=== PATIENT | female | born 1950 | race Caucasian/White ===

== ENCOUNTER 2020-07-22 10:40 | Outpatient (REF) | payer MEDICARE, MEDICAID, SELFPAY ==
[2020-07-22 13:56] LABS: MANUAL DIFF FLAG NO
[2020-07-22 14:01] LABS: Basophils Absolute Auto 0.1 X10*3/uL (0.0-0.2); Basophils Percent Auto 0.4 % (0-2); Eosinophils Absolute Auto 0.2 X10*3/uL (0.0-0.4); Eosinophils Percent Auto 1.7 % (0-4); Hemoglobin 15.4 g/dl (12.0-16.0); Imm Gran Abs Auto 0.03 X10*3/uL (0.00-0.03); Imm Gran Pct Auto 0.3 % (0.0-0.4); Lymphocytes Absolute Auto 3.2 X10*3/uL (1.2-4.9); Lymphocytes Percent Auto 28.1 % (20-40); Mean Corpuscular HGB Conc 33.5 g/dl (31.0-35.0); Mean Corpuscular Hemoglobin 29.6 pg (27.0-33.0); Mean Corpuscular Volume 88.5 fL (80-98); Mean Platelet Volume 10.3 fL (9.4-12.3); Monocytes Absolute Auto 0.4 X10*3/uL (0.1-1.2); Monocytes Percent Auto 3.6 % (2-11); Neutrophils Absolute Auto 7.5 X10*3/uL (2.0-8.3); Neutrophils Percent Auto 65.9 % (45-73); Platelet Count 312 X10*3/uL (160-400); Red Cell Distribution Width 12.9 % (11.0-16.0); White Blood Count 11.4 X10*3/uL (4.8-10.8)
[2020-07-22 14:46] LABS: Alanine Aminotransferase 18 U/L (0-31); Albumin Level 4.2 g/dL (3.5-5.0); Alkaline Phosphatase 82 U/L (39-117); Anion Gap 16 (12-20); Aspartate Amino Transferase 18 U/L (5-31); Bilirubin Total 0.6 mg/dL (0.0-1.0); Blood Urea Nitrogen 13 mg/dL (9-16); C Reactive Protein 0.15 mg/dL (< or = 0.50); Calcium 8.7 mg/dL (8.4-10.2); Carbon Dioxide 26 mmol/L (22-29); Chloride 108 mmol/L (96-108); Estimated Glomerular Filt Rate > 60; Glucose Fasting 96 mg/dL (60-99); Potassium 4.9 mmol/L (3.3-5.1); Sodium 145 mmol/L (135-145); Total Protein 6.4 g/dL (6.5-8.0)
== END 2020-07-22 10:41 | disposition home or self-care (01) ==
LOC: HO.10HDL 10:40
PROVIDERS: Visit Provider Internal Medicine
DX: J44.9 Chronic obstructive pulmonary disease, unspecified (principal); R63.4 Abnormal weight loss; I10 Essential (primary) hypertension; Z72.0 Tobacco use
CPT/HCPCS: 36415; 80053; 85025; 86140

== ENCOUNTER 2020-07-28 11:07 | Outpatient (REF) | payer MEDICARE, MEDICAID, SELFPAY ==
--- NOTE | ~2020-07-28 | XR_ITS ---
EXAMINATION: XR CHEST CLINICAL INFORMATION: COPD. Rule out lesion. COMPARISON: Previous chest x-ray and chest CT July 2019 TECHNIQUE: 2 views of the chest were obtained. FINDINGS: The cardiac and mediastinal contours are stable. The lungs are well inflated. The lungs are clear. There is no pleural effusion or pneumothorax. There are mild degenerative changes of the spine. XR/XR chest 2V IMPRESSION: Well-inflated lungs. No evidence for acute disease in the chest.
== END 2020-07-28 11:08 | disposition home or self-care (01) ==
LOC: HO.HMGCX 11:07
PROVIDERS: PCP Internal Medicine; Visit Provider Internal Medicine
DX: J44.9 Chronic obstructive pulmonary disease, unspecified (principal); I10 Essential (primary) hypertension; R63.4 Abnormal weight loss; Z72.0 Tobacco use
CPT/HCPCS: 71046

== ENCOUNTER 2021-01-31 16:52 | Emergency (ER) | payer MEDICARE, MEDICAID, SELFPAY ==
--- NOTE | ~2021-01-31 | CT_ITS ---
EXAMINATION: CT HEAD WITHOUT CONTRAST CLINICAL INFORMATION: New onset dizziness COMPARISON: None TECHNIQUE: Contiguous axial imaging was performed from the skull base to vertex without intravenous administration of contrast. This CT examination was performed using dose optimization techniques as appropriate, variously including the following: *Automated exposure control *Adjustment of mA and/or kV according to patient size (this includes techniques or standardized protocols for targeted exams where dose is matched to indication/reason for exam; i.e. extremities or head) *Use of iterative reconstruction technique DLP: 603 mGy-cm FINDINGS: There is atherosclerotic calcification of cavernous carotid arteries. Mild small vessel ischemic changes in the supratentorial white matter. There is focal encephalomalacia from an old-appearing infarct of the right cerebellar hemisphere. Otherwise, lomas-white matter differentiation is maintained. No intracranial hemorrhage, extra-axial fluid collection, focal mass effect or midline shift. Mild volume loss of brain parenchyma associated with commensurate prominence of ventricles and sulci; no hydrocephalus. There is opacification of some of the left mastoid air cells. No mastoid erosions. The paranasal sinuses are well aerated and without air-fluid levels. The orbits and globes are normal. There is osteophyte formation at the mildly degenerated left TMJ. CT/CT head/brain wo con IMPRESSION: * No hemorrhage or other acute intracranial pathology. * There is focal encephalization from an old infarct of the right cerebellar hemisphere.
[2021-01-31 17:06] VITALS: BP 151/70; PULSE 91; RESP 16; TEMP 36.7; O2SAT 98; BMI 27.8
--- NOTE | 2021-01-31 17:12 | ED.DIZZY ---
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 felt dizzy with spinning movement especially when turning her head no nausea no vomiting no headache no chest pain or palpitation patient am walk to the ER without significant ataxia Related Data Previous Rx's Medication Instructions Recorded aspirin 81 mg tablet,delayed 81 mg PO DAILY #90 tab 01/31/21 release meclizine 25 mg tablet 25 mg PO TID PRN #20 tab 01/31/21 Allergies Allergy/AdvReac Type Severity Reaction Status Date / Time No Known Allergies Allergy Unverified 01/30/20 14:37 [No Known Allergies*] Review of Systems Review of Systems: Yes all other systems are reviewed and are negative [facility] Social History Social History Advance Directives: Yes Advance Directives Information Provided: No Advance Directives on File: No Physical Exam Vital Signs: Vital Signs: Last Vital Signs Temp 98.5 F 01/31/21 17:49 Pulse 80 01/31/21 19:03 Resp 16 01/31/21 19:03 BP 131/77 01/31/21 19:03 Pulse Ox 96 01/31/21 19:03 Body Mass Index 27.8 Appearance: Alert. Oriented X3. No acute distress. Eyes: PERRLA, No Nystagmus ENT: Pharynx normal. Oral Mucosa moist Neck: Normal inspection. Neck supple. CVS: Normal heart rate and rhythm. Pulses normal. Respiratory: No respiratory distress. Equal air entry bilateral, no wheezing/rales/rhonchi Abdomen: Soft and nontender. Bowel sounds are present, no mass palpable, no CVA tenderness Skin: Skin warm and dry. Normal skin color. Normal skin turgor. Extremities: No lower extremity edema. No calf tenderness Neuro: Oriented X 3. No motor deficit. 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 Patient ambulating steady gait in the ER Lab Data Attestation: I reviewed the patient's lab results. Result diagrams: 01/31/21 17:47 01/31/21 17:47 Labs: Lab Results 01/31/21 01/31/21 Range/Units 17:47 17:47 WBC 10.1 (4.8-10.8) X10*3/uL RBC 5.06 (4.20-5.50) X10*6/uL Hgb 15.3 (12.0-16.0) g/dl Hct 44.9 (37-47) % MCV 88.7 (80-98) fL MCH 30.2 (27.0-33.0) pg MCHC 34.1 (31.0-35.0) g/dl RDW 13.2 (11.0-16.0) % Plt Count 287 (160-400) X10*3/uL MPV 9.7 (9.4-12.3) fL Immature Gran % (Auto) 0.2 (0.0-0.4) % Neut % (Auto) 71.6 (45-73) % Lymph % (Auto) 22.7 (20-40) % [place] % (Auto) 4.3 (2-11) % Eos % (Auto) 0.6 (0-4) % Baso % (Auto) 0.6 (0-2) % Lymph # (Auto) 2.3 (1.2-4.9) X10*3/uL [place] # (Auto) 0.4 (0.1-1.2) X10*3/uL Eos # (Auto) 0.1 (0.0-0.4) X10*3/uL Baso # (Auto) 0.1 (0.0-0.2) X10*3/uL Abs Immat Gran (auto) 0.02 (0.00-0.03) X10*3/uL Absolute Neuts (auto) 7.3 (2.0-8.3) X10*3/uL Absolute Nucleated RBC 0.000 (0.0-0.012) X10*3/uL Nucleated RBC % (auto) 0.0 (0.0-0.2) /100WBC Sodium 147 H (135-145) mmol/L Potassium 5.1 (3.3-5.1) mmol/L Chloride 111 H (96-108) mmol/L Carbon Dioxide 28 (22-29) mmol/L Anion Gap 13 (12-20) BUN 8 L (9-16) mg/dL Creatinine 0.71 (0.5-1.4) mg/dL Estim Creat Clear Calc 67.7 Estimated GFR > 60 Random Glucose 109 (60-115) mg/dL Calcium 9.5 D (8.4-10.2) mg/dL Discharge Plan Discharge Clinical Impression: Benign paroxysmal positional vertigo Qualifiers: Laterality: bilateral Qualified Code(s): H81.13 - Benign paroxysmal vertigo, bilateral Patient Disposition: Home, Self-Care Instructions: Benign Paroxysmal Positional Vertigo (ED) Additional Instructions: Your CT scan of the head showed old stroke take baby aspirin daily Meclizine for dizziness Report to the ER if increased dizziness, difficulty in ambulation, headache/any focal weakness Follow-up with neurologist for old stroke Prescriptions: New meclizine 25 mg tablet 25 mg PO TID PRN (Reason: dizziness) Qty: 20 RF: 0 aspirin 81 mg tablet,delayed release (DR/EC) 81 mg PO DAILY Qty: 90 RF: 0 Referrals: Janeth Lyons MD [Physician] - 1 week Interventions: ED Discharge Assessment Last Done: 01/31/21 19:42 Discharge Date/Time: 01/31/21 19:56
--- NOTE | 2021-01-31 17:18 | ECG_ITS ---
Test Reason : DIZZY Blood Pressure : / mmHG Vent. Rate : 082 BPM Atrial Rate : 082 BPM P-R Int : 176 ms QRS Dur : 080 ms QT Int : 382 ms P-R-T Axes : 045 003 044 degrees QTc Int : 446 ms Normal sinus rhythm Normal ECG No previous ECGs available Referred By: Leonardo Sahu Electronically Signed By:HAKAN MOORE
[2021-01-31] MEDS: Meclizine HCl 25 MG TABLET PO (17:34)
[2021-01-31 17:49] VITALS: BP 142/76; PULSE 82; RESP 16; TEMP 36.9; O2SAT 96
[2021-01-31 17:53] LABS: MANUAL DIFF FLAG NO
[2021-01-31 18:02] LABS: Basophils Absolute Auto 0.1 X10*3/uL (0.0-0.2); Basophils Percent Auto 0.6 % (0-2); Eosinophils Absolute Auto 0.1 X10*3/uL (0.0-0.4); Eosinophils Percent Auto 0.6 % (0-4); Hematocrit 44.9 % (37-47); Hemoglobin 15.3 g/dl (12.0-16.0); Imm Gran Abs Auto 0.02 X10*3/uL (0.00-0.03); Imm Gran Pct Auto 0.2 % (0.0-0.4); Lymphocytes Absolute Auto 2.3 X10*3/uL (1.2-4.9); Lymphocytes Percent Auto 22.7 % (20-40); Mean Corpuscular HGB Conc 34.1 g/dl (31.0-35.0); Mean Corpuscular Hemoglobin 30.2 pg (27.0-33.0); Mean Corpuscular Volume 88.7 fL (80-98); Mean Platelet Volume 9.7 fL (9.4-12.3); Monocytes Absolute Auto 0.4 X10*3/uL (0.1-1.2); Monocytes Percent Auto 4.3 % (2-11); Neutrophils Absolute Auto 7.3 X10*3/uL (2.0-8.3); Neutrophils Percent Auto 71.6 % (45-73); Platelet Count 287 X10*3/uL (160-400); Red Blood Count 5.06 X10*6/uL (4.20-5.50); Red Cell Distribution Width 13.2 % (11.0-16.0); White Blood Count 10.1 X10*3/uL (4.8-10.8)
[2021-01-31 18:12] LABS: Anion Gap 13 (12-20); Blood Urea Nitrogen 8 mg/dL (9-16); Calcium 9.5 mg/dL (8.4-10.2); Carbon Dioxide 28 mmol/L (22-29); Chloride 111 mmol/L (96-108); Creatinine Clr Calc Pharmacy 67.7; Estimated Glomerular Filt Rate > 60; Glucose Random 109 mg/dL (60-115); Potassium 5.1 mmol/L (3.3-5.1); Sodium 147 mmol/L (135-145)
[2021-01-31 19:03] VITALS: BP 131/77; PULSE 80; RESP 16; O2SAT 96
--- NOTE | 2021-01-31 19:04 | PC.NURSE ---
Report taken from [facility] plan for DC home. Pt requesting to assistance ambulating to the bathroom. Pt using walker, ambulating with a steady gait. Pt reports relief of dizziness at this time. VSS. Pt aware of plan to DC home.
--- NOTE | 2021-01-31 19:10 | PC.NURSE ---
MD at bedside discussing results and plan of care.
--- NOTE | 2021-01-31 19:27 | PC.NURSE ---
Addendum entered by Rozina Giron 01/31/21 19:28: Daughter in law, Hilda Original Note: Daughter in law calling, leaving phone number in case pt needs a ride home. [phone]
[2021-01-31] MEDS: Aspirin 81 MG TAB.CHEW PO (19:39)
--- NOTE | 2021-01-31 19:40 | PC.NURSE ---
Medicated per MAR. Awaiting transport home.
== END 2021-01-31 19:56 | disposition home or self-care (01) ==
PROVIDERS: Emergency Provider Internal Medicine; PCP Internal Medicine
DX: H81.13 Benign paroxysmal vertigo, bilateral (principal); Z79.899 Other long term (current) drug therapy
CPT/HCPCS: 36415; 70450; 80048; 85025; 93005; 99284

== ENCOUNTER 2021-03-29 13:00 | Outpatient (RCR) | payer MEDICARE, MEDICAID, SELFPAY ==
[2021-03-01 11:00] VITALS: BP 135/67
--- NOTE | 2021-03-01 12:06 | MHC.PT.EP ---
[facility] [place] Office [place] Office [place] Office [address] [phone] F: [phone] F: [phone] F: [phone] F: [phone] Physical Therapy Plan of Care Date of Evaluation: Date of Surgery: Diagnosis: Vertigo Assessment: Meryl presents today with s/s consistent with BPPV as well as vestibular hypofunction. Her functional limitations include decreased tolerance to performing homemaking and self care tasks, difficulty with transfers, decreased confidence with walking, performing community and recreational tasks and inability to sleep in her bed. Frequency and Duration: The patient will be seen 2 x week for 3 weeks Short Term Goals: 1. Pt will be (-) for nystagmus of reports of vertigo in all diagnostic directions B to resolutions of BPPV in 2 weeks [employer] Goals: 3 weeks: 1. I with HEP 2. Improve DGI to 20/24 3. Pt to be able to functionally move in all planes without provocation of dizziness and return to PLOF in 4 weeks 4. Pt to be educated on sx and indications to return to therapy when needed Treatment Plan: Modalities to reduce pain, spasms and effusion. Manual therapy to restore motion and function. Therapeutic exercise to improve strength and flexibility. Neuromuscular re-education for posture and balance. Therapeutic activities to return to functional activities of daily living. Electronically signed by: Jamaica Alba PT, DPT Please sign and return to therapist. Thank you for your referral.
--- NOTE | 2021-04-30 09:21 | MHC.PT.DC ---
[facility] [place] Office [place] Office [place] Office [address] Tov[address] [phone] F: [phone] F: [phone] F: [phone] F: [phone] Physical Therapy Discharge Report Diagnosis: Vertigo Date of Surgery: Date of Evaluation: 03/01/21 Date of Discharge: 03/31/21 Treatments to Date: 7 Cancellations to Date: 0 No Shows to Date: 0 Discharge Status: Achieved Goals Improved Function Independent with HEP Discharge Summary: DC at this time with near resolution of symptoms and is independent with current HEP and skills for self management Electronically signed by: Jamaica Alba PT, DPT Please sign and return to therapist. Thank you for your referral.
== END 2021-04-30 09:22 | disposition home or self-care (01) ==
LOC: HO.PT 13:00
PROVIDERS: PCP Internal Medicine; Visit Provider Internal Medicine
DX: H81.4 Vertigo of central origin (principal)
CPT/HCPCS: 95992; 97112; 97161; 97530

== ENCOUNTER 2021-06-22 09:41 | Outpatient (REF) | payer MEDICARE, MEDICAID, SELFPAY ==
--- NOTE | ~2021-06-22 | MM_ITS ---
EXAMINATION: BONE DENSITOMETRY CLINICAL INDICATION: Asymptomatic menopausal state. COMPARISON: Previous BD dated 06/26/2018 and baseline BD dated 08/13/2015. TECHNIQUE: Using a [employer] DXA System (software version: 13.1) manufactured by [employer], dual-energy x-ray absorptiometry was performed of the lumbar spine and left hip. The images are of good technical quality. Summary results are attached. FINDINGS: AP SPINE L1-L4: Current: BMD 0.870 g/cm2, Z-score -1.1, T-score -2.6, osteoporosis, 7.3% decrease from previous, 10.4% decrease from baseline (<5% change is not significant). Prior: BMD 0.939 g/cm2. Baseline: BMD 0.971 g/cm2. LEFT FEMUR, NECK: Current: BMD 0.589 g/cm2, Z-score -1.5, T-score -3.2, osteoporosis. Prior: BMD 0.668 g/cm2. Baseline: BMD 0.698 g/cm2. LEFT FEMUR, TOTAL: Current: BMD 0.725 g/cm2, Z-score -0.8, T-score -2.2, osteopenia, 14.8% decrease from previous, 16.5% decrease from baseline (<5% change is not significant). Prior: BMD 0.851 g/cm2. Baseline: BMD 0.868 g/cm2. IDENTIFIED RISK FACTORS: Early menopause, secondary osteoporosis, family history (parental hip fracture), tobacco use (current smoker), hysterectomy, bilateral oophorectomy. HISTORY OF FRACTURE: None listed. MEDICATIONS: Calcium supplements or multivitamin, vitamin D. MM/XR DEXA axial skeleton IMPRESSION: 1. DIAGNOSIS: Osteoporosis based on the lowest T-score value of -3.2 in the femoral neck applying World Health Organization criteria. 2. 10-YEAR FRACTURE RISK PREDICTION, FRAX: According to the guidelines, FRAX calculation should only be performed on patients in the osteopenia bone density category. Therefore, FRAX was not performed on this patient. 3. Treatment Recommendations: NOF guidelines recommend consideration for treatment in postmenopausal women and men age 50 and older presenting with the following: -A hip or vertebral (clinical or morphometric) fracture. -T-score less than or equal to -2.5 at the femoral neck or spine after appropriate evaluation to exclude secondary causes. -Low bone mass at the hip or spine and a 10-year fracture probability by FRAX of greater than or equal to 3% for hip fracture or greater than or equal to 20% for major osteoporotic fracture based on the [place] adapted WHO algorithm. 4. Other Recommendations: All treatment decisions require clinical judgment and consideration of individual patient factors, including patient preferences, comorbidities, previous drug use, risk factors not captured in the FRAX model (e.g. frailty, falls, vitamin D deficiency, increased bone turnover, interval significant decline in bone density) and possible under or overestimation of fracture risk by FRAX. Additional medical evaluation for secondary cause of low bone mineral density may be appropriate. FUTURE SCAN RECOMMENDATION: People with diagnosed cases of osteoporosis or at high risk for fracture should have regular bone mineral density tests. For patients eligible for Medicare, routine testing is allowed once every 2 years. The testing frequency can be increased to one year for patients who have rapidly progressing disease, those who are receiving or discontinuing medical therapy to restore bone mass, or have additional risk factors.
--- NOTE | ~2021-06-22 | MM_ITS ---
EXAMINATION: MM SCREENING DIGITAL BREAST TOMOSYNTHESIS, BILATERAL CLINICAL INFORMATION: Screening. Asymptomatic. The lifetime risk of breast cancer based on the Tyrer-Cuzick Model is 2%. COMPARISON: Mammography: 06/26/2018, 08/13/2015 TECHNIQUE: Digital breast tomosynthesis is performed in both the craniocaudal and mediolateral oblique views along with computer-aided detection (CAD). Synthesized 2D images are generated from the tomosynthesis. Additional left MLO and right CC views are provided. FINDINGS: There are scattered areas of fibroglandular density (ACR BI-RADS breast composition Category b). There are no significant masses, abnormal calcifications, or other abnormalities. Breast tissue composition borders on heterogeneously dense. There are no significant changes from prior studies. MM/MM tomosynthesis screening BI IMPRESSION: No mammographic evidence of malignancy. ASSESSMENT: BI-RADS 1: Negative RECOMMENDATION: Routine annual mammography screening. This patient's information was entered into a reminder system with a target due date for their next mammogram.
== END 2021-06-22 09:42 | disposition home or self-care (01) ==
LOC: HO.MAMMO 09:41
PROVIDERS: PCP Internal Medicine; Visit Provider Internal Medicine
DX: Z12.31 Encounter for screening mammogram for malignant neoplasm of breast (principal); Z13.820 Encounter for screening for osteoporosis; Z78.0 Asymptomatic menopausal state; F17.200 Nicotine dependence, unspecified, uncomplicated; M81.0 Age-related osteoporosis without current pathological fracture; Z79.899 Other long term (current) drug therapy
CPT/HCPCS: 77063; 77067; 77080

== ENCOUNTER 2021-10-29 11:56 | Day surgery (SDC) | payer MEDICARE, MEDICAID, SELFPAY ==
[2021-10-22 14:22] VITALS: BMI 27.4
[2021-10-22 16:34] VITALS: BMI 27.4
--- NOTE | 2021-10-28 09:46 | P.CONAN_ITS ---
Documented by User: Nelda Rockwell NP 10/28/21 09:46 HPI - Anesthesia Eval Consult details Narrative: 71yo F for Colonoscopy PMFSH Past Medical History Medical History (Updated 10/29/21 @ 12:17 by Noemí Molina MD) History of CVA (cerebrovascular accident) Hx of vertigo Low back pain Smoker Stress incontinence of urine Wears dentures Surgical History Surgical History (Updated 10/22/21 @ 16:34 by Marlin Zhang RN) History of bunionectomy of both great toes Hx of colonoscopy Social History Social History Are you a primary career guidance counselor to a significant other at home: No Do you presently have visiting nurse or other home services: No Patient Tobacco Use Status: Current everyday Tobacco user Tobacco use type: Cigarette Cigarettes Per Day: 12 Smoked in Last 30 Days: Yes Use of substances other than those prescribed or required for medical reasons: No Have you been hit, kicked, punched, or otherwise hurt by someone within the past year? If so, by whom?: No Are you DNR?: No Advance Directives: No Advance Directives Information Provided: Yes Advance Directives on File: No Recently lost weight without trying: No Meds Allergies Allergy/AdvReac Type Severity Reaction Status Date / Time No Known Allergies Allergy Unverified 01/30/20 14:37 [No Known Allergies*] Home Medications Medication Instructions Recorded Confirmed Last Taken Type cholecalciferol (vitamin D3) 25 25 mcg PO DAILY 10/22/21 10/22/21 Unknown History mcg (1,000 unit) tablet (Vitamin D3) lisinopril 5 mg tablet 1 tab PO DAILY 10/22/21 10/22/21 Unknown History multivitamin 1 tab PO DAILY 10/22/21 10/22/21 Unknown History Exam Exam Date and Time: October 28, 2021 0946 Height,Weight and Vital Signs: Height 5 ft 3 in Weight 70.307 kg Assessment and Plan Assessment Anesthesia Assessment: Chart Reviewed Documented by User: Noemí Molina MD 10/29/21 12:39 [facility] Active Problems Active Problems: Smoker Snores. Denies SRINATH. Never had sleep study Past Medical History Medical History (Updated 10/29/21 @ 12:17 by Noemí Molina MD) History of CVA (cerebrovascular accident) Hx of vertigo Low back pain Smoker Stress incontinence of urine Wears dentures Family History Family history of problems with anesthesia: No Surgical History Surgical History (Updated 10/22/21 @ 16:34 by Marlin Zhang RN) History of bunionectomy of both great toes Hx of colonoscopy History of Problems with Anesthesia: No Social History Social History Are you a primary career guidance counselor to a significant other at home: No Do you presently have visiting nurse or other home services: No Patient Tobacco Use Status: Current everyday Tobacco user Tobacco use type: Cigarette Cigarettes Per Day: 12 Smoked in Last 30 Days: Yes Use of substances other than those prescribed or required for medical reasons: No Have you been hit, kicked, punched, or otherwise hurt by someone within the past year? If so, by whom?: No Are you DNR?: No Advance Directives: No Advance Directives Information Provided: Yes Advance Directives on File: No Recently lost weight without trying: No Meds Allergies Allergy/AdvReac Type Severity Reaction Status Date / Time No Known Allergies Allergy Unverified 01/30/20 14:37 [No Known Allergies*] Home Medications Medication Instructions Recorded Confirmed Last Taken Type cholecalciferol (vitamin D3) 25 25 mcg PO DAILY 10/22/21 10/22/21 Unknown History mcg (1,000 unit) tablet (Vitamin D3) lisinopril 5 mg tablet 1 tab PO DAILY 10/22/21 10/22/21 Unknown History multivitamin 1 tab PO DAILY 10/22/21 10/22/21 Unknown History Exam Pertinent Lab Results Pertinent Lab Results: Lab Results 10/29/21 10/29/21 Range/Units 12:05 12:05 PT 12.6 (9.9-13.0) SEC INR 1.1 (0.9-1.1) Sodium 143 (135-145) mmol/L Potassium 4.5 (3.3-5.1) mmol/L Chloride 109 H (96-108) mmol/L Carbon Dioxide 26 (22-29) mmol/L Anion Gap 13 (12-20) Airway Mallampati Class: II TM Dist: >3cm Neck ROM: Full Denture: Upper and Lower Heart: RRR Lungs: Bilateral wheezes. Still present after Albuterol treatment. Sats 91-92% on RA. Very briefly 97% immediately post treatment Assessment and Plan Assessment Anesthesia Assessment: Anesthesia Plan Discussed Final Anesthetic Review Family History of Problems with Anesthesia: No History of Problems with Anesthesia: No NPO: Yes ASA Class: III Final Preanesthetic Review: No Changes in Pt Med Stat, Meds/Allgs Chart Reviewed, Consent Obtained/Reviewed and Anes Risks/Benef Reviewed Patient Risk: Intermediate Procedure Risk: Low Assessment/Block/Sedation in SS: Assess/Block/Sedation-SS Anesthetic Plan Anesthetic Plan: MAC: Disposition: Standard PACU
[2021-10-29 12:12] VITALS: BP 134/79; PULSE 99; RESP 18; TEMP 36.4; O2SAT 97
[2021-10-29 12:19] LABS: INTERNATIONAL NORM RATIO 1.1 (0.9-1.1); Prothrombin Time 12.6 SEC (9.9-13.0)
[2021-10-29 12:22] LABS: Anion Gap 13 (12-20); Carbon Dioxide 26 mmol/L (22-29); Chloride 109 mmol/L (96-108); Potassium 4.5 mmol/L (3.3-5.1); Sodium 143 mmol/L (135-145)
[2021-10-29] MEDS: Lactated Ringers 1,000 ML 100 ML IVCONT (12:50)
[2021-10-29 14:23] VITALS: BP 141/61; PULSE 128; RESP 16; TEMP 37.1; O2SAT 98
--- NOTE | 2021-10-29 14:25 | P.BOP_ITS ---
Brief Operative Note Date of Service: 10/29/21 Pre-op diagnosis: Screening Post-op diagnosis: other (Colon polyps) Procedure: Colonoscopy to the cecum and TI with hot snare polypectomy x 3 Surgeon: Mark Anthony Pineda Anesthesia: MAC Was an Wash Plant Operator used for this Procedure?: No Estimated blood loss (mL): 0 Pathology: other (A. Ascending colon polyp) Condition: stable Disposition: PACU
[2021-10-29 14:28] VITALS: BP 117/71; PULSE 123; RESP 16; O2SAT 98
[2021-10-29 14:33] VITALS: BP 134/65; PULSE 118; RESP 18; O2SAT 95
[2021-10-29 14:38] VITALS: BP 110/65; PULSE 109; RESP 18; O2SAT 96
[2021-10-29 14:53] VITALS: BP 104/61; PULSE 104; RESP 18; TEMP 37.1; O2SAT 95
--- NOTE | 2021-10-29 20:19 | OP_ITS ---
SURGEON: Mark Anthony Pineda MD INDICATIONS: The patient presents for evaluation of colorectal cancer screening, personal history of tubular adenoma of the colon, and family history of colon cancer. Full consent has been obtained from her for this, including risks of bleeding and perforation. PREOPERATIVE DIAGNOSIS: POSTOPERATIVE DIAGNOSIS: PROCEDURE PERFORMED: Colonoscopy to the cecum and terminal ileum with hot snare polypectomy x3. ESTIMATED BLOOD LOSS: COMPLICATIONS: ANESTHESIA: Monitored anesthesia care was used initially but that was then converted to general anesthesia during the procedure due to respiratory issues. ASSISTANTS: SPECIMENS: PREOPERATIVE DIAGNOSES: Colorectal cancer screening, personal history of tubular adenoma of the colon, and family history of colon cancer. POSTOPERATIVE DIAGNOSES: Colorectal cancer screening, personal history of tubular adenoma of the colon, and family history of colon cancer, colon polyps, diverticulosis, and internal hemorrhoids. DESCRIPTION OF PROCEDURE: The digital rectal exam revealed no abnormalities. The Olympus video pediatric colonoscope was entered into the rectum and advanced to the cecum with the assistance of abdominal wall pressure. Once in the cecum I did identify normal-appearing cecal pouch with appendiceal orifice and a normal-appearing ileocecal valve. The terminal ileum was cannulated and appeared normal. Scope withdrawn back into the colon. The entire cecum appeared normal. The scope was then slowly withdrawn assessing all mucosal surfaces carefully. For the most part, preparation was very good, but did require some irrigation and suctioning for some liquid stool. In the ascending colon were 3 polyps between 8 and 10 mm in diameter. These were all removed by hot snare polypectomy, although only 1 was recovered. All the polypectomy sites appeared clean, without any sign of residual polyp nor bleeding. I did not visualize any other polyps, colitis, or angiodysplasia. There was a mild amount of sigmoid diverticulosis. In the rectum, scope was retroflexed visualizing internal hemorrhoids, but no other pathology. The scope was straightened and withdrawn from the patient. She tolerated the procedure well and was returned to recovery area in stable condition. IMPRESSION: 1. Colon polyps. 2. Diverticulosis. 3. Internal hemorrhoids. PLAN: The results of the pathology will be checked. Given the relatively minimal findings, her multiple previous colonoscopies, her age, and some apparent lung disease in relation to her long-time and ongoing smoking, I would recommend holding off on any further screening colonoscopies going forward. She will see me on a p.r.n. basis. She was advised not to use any aspirin and NSAIDs for 1 week. MD RONNIE Mcelroy/OPHELIA / [id number] MTDD
== END 2021-10-29 15:18 | disposition home or self-care (01) ==
PROVIDERS: Nurse Practitioner; PCP Internal Medicine; Visit Provider Internal Medicine
PROC: 0DJD8ZZ Inspection of Lower Intestinal Tract, Via Natural or Artificial Opening Endoscopic (ICD-10-PCS; CPT 45378; principal; 2021-10-29 13:00)
DX: Z12.11 Encounter for screening for malignant neoplasm of colon (principal); Z86.010 Personal history of colon polyps; Z80.0 Family history of malignant neoplasm of digestive organs; D12.2 Benign neoplasm of ascending colon; K57.30 Diverticulosis of large intestine without perforation or abscess without bleeding; K64.8 Other hemorrhoids; I10 Essential (primary) hypertension; Z79.899 Other long term (current) drug therapy; F17.210 Nicotine dependence, cigarettes, uncomplicated
CPT/HCPCS: 45385; 36415; 80051; 85610; 88305; J0330; J1100; J2250; J2405; J3010

== ENCOUNTER 2022-06-21 12:53 | Outpatient (REF) | payer MEDICARE, MEDICAID, SELFPAY ==
--- NOTE | ~2022-06-21 | XR_ITS ---
EXAMINATION: XR LUMBOSACRAL SPINE CLINICAL INFORMATION: Dorsalgia. COMPARISON: None TECHNIQUE: Three views of the lumbosacral spine. FINDINGS: Osteopenia. Mild height loss of the L5 vertebral body noted. There is also likely mild L2 vertebral body height loss. Appropriate alignment. Disc spaces are maintained. Small multilevel endplate osteophytes. Facet arthropathy throughout. XR/XR lumbar spine 2-3V IMPRESSION: Mild height loss of the L2 and L5 vertebral bodies of uncertain chronicity. Mild multilevel degenerative changes. Osteopenia.
== END 2022-06-21 12:54 | disposition home or self-care (01) ==
LOC: HO.HMGCX 12:53
PROVIDERS: PCP Internal Medicine; Visit Provider Nurse Practitioner Family
DX: M54.9 Dorsalgia, unspecified (principal)
CPT/HCPCS: 72100

== ENCOUNTER 2022-07-01 09:32 | Outpatient (REF) | payer MEDICARE, MEDICAID, SELFPAY ==
[2022-07-01 11:24] LABS: Appearance Urine Clear; Color Urine Yellow; Glucose Urine UA Negative (Negative); Leukocyte Esterase Urine Trace (Negative); Nitrite Urine Negative (Negative); UMIC TRIGGER UA YES; Urine Blood Negative (Negative); Urine Ketones Negative (Negative); Urine Protein Negative (Neg-Trace)
[2022-07-01 11:33] LABS: Bacteria Urine None Seen (None Seen); Calcium Oxalate Crystals Urine Present; Hyaline Casts Urine 0-2 /LPF (0-2); RBC Urine 0-2 /HPF (0-2); Squamous Epithelial Cell Urine 0-2 /HPF (0-2); WBC Urine 0-5 /HPF (0-5)
[2022-07-01 11:45] LABS: MANUAL DIFF FLAG NO
[2022-07-01 12:00] LABS: Basophils Absolute Auto 0.1 X10*3/uL (0.0-0.2); Basophils Percent Auto 0.4 % (0-2); Eosinophils Absolute Auto 0.2 X10*3/uL (0.0-0.4); Hematocrit 42.3 % (37.0-47.0); Imm Gran Abs Auto 0.05 X10*3/uL (0.00-0.03); Imm Gran Pct Auto 0.4 % (0.0-0.4); Lymphocytes Absolute Auto 3.5 X10*3/uL (1.2-4.9); Lymphocytes Percent Auto 29.8 % (20-40); Mean Corpuscular HGB Conc 33.1 g/dl (31.0-35.0); Mean Corpuscular Volume 90.6 fL (80.0-98.0); Mean Platelet Volume 9.8 fL (9.4-12.3); Monocytes Absolute Auto 0.5 X10*3/uL (0.1-1.2); Monocytes Percent Auto 4.3 % (2-11); Neutrophils Absolute Auto 7.4 x10*3/uL (2.0-8.3); Neutrophils Percent Auto 63.1 % (45-73); Platelet Count 323 X10*3/uL (160-400); Red Blood Count 4.67 X10*6/uL (4.20-5.50); Red Cell Distribution Width 12.6 % (11.0-16.0); White Blood Count 11.8 X10*3/uL (4.8-10.8)
[2022-07-01 12:40] LABS: Alanine Aminotransferase 19 U/L (0-31); Albumin Level 4.2 g/dL (3.5-5.0); Alkaline Phosphatase 100 U/L (39-117); Anion Gap 16 (12-20); Aspartate Amino Transferase 18 U/L (5-31); Bilirubin Total 0.6 mg/dL (0.0-1.0); Blood Urea Nitrogen 17 mg/dL (9-16); Calcium 9.1 mg/dL (8.4-10.2); Carbon Dioxide 25 mmol/L (22-29); Chloride 110 mmol/L (96-108); Cholesterol 162 mg/dL; Estimated Glomerular Filt Rate > 60; Glucose Fasting 83 mg/dL (60-99); HDL Cholesterol 45 mg/dL; LDL Cholesterol Calculated 96 mg/dl; Potassium 4.5 mmol/L (3.3-5.1); Sodium 146 mmol/L (135-145); Total Protein 6.8 g/dL (6.5-8.0); Triglycerides 109 mg/dL
== END 2022-07-01 09:33 | disposition home or self-care (01) ==
LOC: HO.HMGCLDS 09:32
PROVIDERS: PCP Internal Medicine; Visit Provider Internal Medicine
DX: Z00.00 Encounter for general adult medical examination without abnormal findings (principal)
CPT/HCPCS: 36415; 80053; 80061; 81001; 82306; 85025

== ENCOUNTER 2023-02-06 11:37 | Outpatient (AMB) | payer MEDICARE, MEDICAID, SELFPAY ==
--- NOTE | 2023-02-06 11:55 | MHC.OFFWIV ---
Intake Vital Signs 02/06/23 11:57 Height 5 ft 3 in Weight 197 lb BMI 34.9 BP 148/80 H Blood Pressure Location Rt brachial Position Sitting Pulse 110 H Pulse Source Pulse Oximeter Temp 98.0 F Temp Source Temporal Artery Scan Pulse Oximetry (%) 96 Intake Visit Reasons: EP, Right side of hip pain, burning with urination Intake Note: pt is here for c/o right side pain and burning when urinating Patient Tobacco Use Status: Current everyday Tobacco user Allergies No Known Allergies [No Known Allergies*] Allergy (Verified 02/08/23 08:20) Medication List - Last Reconciled 02/08/23 by Da Gonzáles MD cholecalciferol (vitamin D3) (Vitamin D3) 25 mcg PO DAILY cyclobenzaprine 10 mg PO BEDTIME lisinopril 1 tab PO DAILY meloxicam 15 mg PO DAILY Do you need a note to return to daycare/school/sports/work: Yes HPI EP, Right side of hip pain, burning with urination HPI Details Patient presents to the office for a sick visit. Complaining of lower back pain for the past week. No history of fall or trauma prior to the onset of symptoms. No urinary incontinence. No fevers or chills. Pain is worse on bending forwards or sideways. Relieve done sitting down. Pain is radiating into the gluteal area. PFSH Medical History History of CVA (cerebrovascular accident) Hx of vertigo Low back pain Smoker Stress incontinence of urine Wears dentures Surgical History History of bunionectomy of both great toes Hx of colonoscopy Social History Are you a primary physician primary care sports medicine to a significant other at home: No Do you presently have visiting nurse or other home services: No Patient Tobacco Use Status: Current everyday Tobacco user Tobacco use type: Cigarette Cigarettes Per Day: 12 Physical Exam Vital Signs: Last Vital Signs Temp 98.0 F 02/06/23 11:57 Pulse 110 H 02/06/23 11:57 BP 148/80 H 02/06/23 11:57 Pulse Ox 96 02/06/23 11:57 BMI result Body Mass Index 34.9 Const General: cooperative and healthy appearing Nutritional Appearance: well nourished Orientation/consciousness: patient oriented x3 Limitations: no limitations HEENT Head: Yes normal to inspection Eyes General: appearance normal, both eyes and all related structures Neck Neck: Yes normal visual inspection Chest Chest palpation & inspection: normal palpation of entire chest wall Resp Effort & Inspection: normal respiratory effort General: Yes no CVA tenderness Back/Spine/Pelvis Back: no CVA tenderness Neuro General: patient oriented x3 Results AMB Urinalysis, Automated UA Leukoctes 0 Otis/uL Last Edit by Jimmy Patricio CMA on 02/06/23 12:13 UA Nitrite Negative Last Edit by Jimmy Patricio CMA on 02/06/23 12:13 UA Urobilinogen 0.2 mg/dL Last Edit by Jimmy Patricio CMA on 02/06/23 12:13 UA Protein 0 mg/dL Last Edit by Jimmy Patricio CMA on 02/06/23 12:13 UA pH 7.0 Last Edit by Jimmy Patricio CMA on 02/06/23 12:13 UA Blood 0 Usama/uL Last Edit by Jimmy Patricio CMA on 02/06/23 12:13 UA Specific [place] 1.010 Last Edit by Jimmy Patricio CMA on 02/06/23 12:13 UA Ketone Negative Last Edit by Jimmy Patricio CMA on 02/06/23 12:13 UA Bilirubin 0 mg/dL Last Edit by Jimmy Patricio CMA on 02/06/23 12:13 UA Glucose 0 mg/dL Last Edit by Jimmy Patricio CMA on 02/06/23 12:13 Results Reviewed Results Reviewed: Laboratory Last Values Urine pH (Auto) 7.0 02/06/23 12:12 Specific [place] (Auto) 1.010 02/06/23 12:12 Urine Protein (Auto) 0 mg/dL 02/06/23 12:12 Glucose (UA)(Auto) 0 mg/dL 02/06/23 12:12 Urine Ketones (Auto) Negative 02/06/23 12:12 Urine Blood (Auto) 0 Usama/uL 02/06/23 12:12 Urine Nitrite (Auto) Negative 02/06/23 12:12 Urine Bilirubin (Auto) 0 mg/dL 02/06/23 12:12 Urine Urobilinogen (Auto) 0.2 mg/dL 02/06/23 12:12 Leukocyte Esterase (Auto) 0 Otis/uL 02/06/23 12:12 Assessment & Plan Assessment & Plan (1) Back pain: Code(s): M54.9 - Dorsalgia, unspecified Plan Meloxicam and cyclobenzaprine called in. Patient was advised rest. Note for work if necessary provided. Once pain symptoms subside, patient should start physical therapy. If symptoms worsen to follow-up here. Urinalysis was reviewed Orders: Orders AMB Urinalysis Automated 02/06/23 Z13.9 - Encounter for screening, unspecified Medications: New cyclobenzaprine 10 mg PO BEDTIME 14 tabs 0RF meloxicam 15 mg PO DAILY 14 tabs 0RF Coding Level of Care Code Est Pt Level 3 (14599) Diagnoses Back pain M54.9
[2023-02-06 11:57] VITALS: BP 148/80; PULSE 110; TEMP 36.7; O2SAT 96; BMI 34.9
== END 2023-02-06 12:40 | disposition home or self-care (01) ==
PROVIDERS: PCP Internal Medicine; Visit Provider Internal Medicine
DX: M54.9 Dorsalgia, unspecified (principal)
CPT/HCPCS: 81003; 99213

== ENCOUNTER 2023-02-16 12:38 | Outpatient (REF) | payer MEDICARE, MEDICAID, SELFPAY | END 2023-02-16 12:39 | disposition home or self-care (01) | LOC: HO.HMGCX 12:38 | PROVIDERS: PCP Internal Medicine; Visit Provider Internal Medicine | DX: J44.9 Chronic obstructive pulmonary disease, unspecified (principal); R63.4 Abnormal weight loss | CPT/HCPCS: 71046 ==

== ENCOUNTER 2023-02-18 12:11 | Emergency (ER) | payer MEDICARE, MEDICAID, SELFPAY ==
[2023-02-18 12:22] VITALS: BP 146/93; PULSE 115; RESP 19; TEMP 36.6; O2SAT 98; BMI 28.0
--- NOTE | 2023-02-18 12:22 | ED.BACK ---
HPI - Back Pain/Injury General Chief Complaint: Back Pain/Injury Stated Complaint: L hip pain Time Seen by Provider: 02/18/23 12:35 Source: patient Mode of arrival: ambulatory Limitations: no limitations History of Present Illness HPI Narrative: 72-year-old female with a history of HTN, long standing smoking history here with complaints of left lower back pain with radiation to the buttocks for the last few weeks with no known injury or trauma. Patient was seen and had outpatient urgent care and was given Flexeril and meloxicam on May 08. Patient then saw her primary care on 02/14 and given prednisone with continued pain. Patient denies any numbness in the groin. Patient denies bowel or bladder incontinence. Patient denies any fevers or chills. Patient denies any unintentional weight loss. Patient denies any radiation of pain. No numbness, tingling, weakness of the extremities Related Data Home Medications Medication Instructions Recorded Confirmed cholecalciferol (vitamin D3) 25 25 mcg PO DAILY 10/22/21 02/08/23 mcg (1,000 unit) tablet (Vitamin D3) lisinopril 5 mg tablet 1 tab PO DAILY 10/22/21 02/08/23 Previous Rx's Medication Instructions Recorded cyclobenzaprine 10 mg tablet 10 mg PO BEDTIME #14 tabs 02/06/23 meloxicam 15 mg tablet 15 mg PO DAILY #14 tabs 02/06/23 cyclobenzaprine 10 mg tablet 10 mg PO TID PRN muscle spasm #10 02/18/23 tabs lidocaine 5 % topical patch 1 patch topical DAILY #15 ea 02/18/23 (Lidoderm) naproxen 500 mg tablet 500 mg PO BID PRN pain #20 tabs 02/18/23 Allergies Allergy/AdvReac Type Severity Reaction Status Date / Time No Known Allergies Allergy Verified 02/18/23 12:22 [No Known Allergies*] Review of Systems Review of Systems: Yes all other systems are reviewed and are negative Constitutional: Constitutional: Reports no additional constitutional complaints, Denies body ache(s), Denies chills, Denies fever(s), Denies headache(s) and Denies weakness Eyes: Eyes: Reports no additional eye complaints and Denies change in vision ENT: Reports system reviewed and no additional complaints, except as documented, Denies dizziness, Denies headache(s), Denies nasal congestion, Denies nasal discharge and Denies neck pain Cardiovascular: Cardiovascular: Reports no additional cardiovascular complaints, Denies chest pain, Denies leg edema and Denies dyspnea Respiratory: Respiratory: Reports no additional respiratory complaints, Denies cough and Denies dyspnea Gastrointestinal: Gastrointestinal: Reports no additional gastrointestinal complaints, Denies abdominal pain, Denies diarrhea, Denies nausea and Denies vomiting Genitourinary: Genitourinary: Reports no additional female genitourinary complaints and Denies urinary incontinence Musculoskeletal: Musculoskeletal: Reports no additional musculoskeletal complaints, Reports back pain, Denies arthralgias, Denies joint swelling, Denies neck pain, Denies numbness and Denies tingling Integumentary/Breasts: Skin/Breast: Reports system reviewed and no additional complaints, except as docu and Denies rash Neurologic: Reports system reviewed and no additional complaints, except as documented, Denies Abnormal speech present, Denies dizziness, Denies headache(s), Denies numbness, Denies tingling and Denies weakness PMFSH Past Medical History Attestation statement: The following information was validated with the patient. Source: old records reviewed and nursing notes reviewed Medical History Low back pain Stress incontinence of urine Hx of vertigo History of CVA (cerebrovascular accident) Wears dentures Smoker Surgical History History of bunionectomy of both great toes Hx of colonoscopy Social History Social History Are you a primary resident care coordinator to a significant other at home: No Do you presently have visiting nurse or other home services: No Patient Tobacco Use Status: Current everyday Tobacco user Tobacco use type: Cigarette Cigarettes Per Day: 12 Advance Directives: No Advance Directives Information Provided: Yes Physical Exam Vital Signs: Vital Signs: Last Vital Signs Temp 98 F 02/18/23 12:22 Pulse 115 H 02/18/23 12:22 Resp 19 02/18/23 12:22 BP 146/93 H 02/18/23 12:22 Pulse Ox 98 02/18/23 12:22 O2 Del Method Room Air 02/18/23 12:22 BMI result Body Mass Index 28.0 Const: General: cooperative, healthy appearing, comfortable and no acute distress Orientation/consciousness: patient oriented x3 Limitations: no limitations HEENT: Head: Yes normal to inspection Ears: hearing grossly normal bilaterally General nose exam: Normal external nose present Face and sinus: Yes normal facial exam Mouth: Normal oral and palatal mucosa present Throat: Yes posterior oropharynx normal Eyes: General: appearance normal, both eyes and all related structures Pupils: Equal, round and reactive pupils present Neck: Neck: Yes normal visual inspection Chest: Chest palpation & inspection: normal inspection of the chest Resp: Effort & Inspection: normal respiratory effort Auscultation: clear to auscultation bilaterally Cardio: Rate: regular rate Rhythm: regular rhythm Peripheral pulses: Peripheral pulses 2+ throughout GI: Inspection: Yes normal to inspection Palpation (GI): Soft to palpation and nontender Auscultation: normal bowel sounds Back/Spine/Pelvis: Other: pain with left straight leg raise Thoracic/Lumbar Spine: thoracic and lumbar spine normal to inspection Sacroiliac joints: on the left tender to palpation and by compression of iliac crest Skin: General skin exam: no rashes or lesions noted Neuro: General: patient oriented x3, no focal motor deficits and normal sensation to monofilament Cranial nerves: Yes Equal, round and reactive pupils present Cognition (Neuro): normal cognition Speech: No Abnormal speech present Gait exam (Neuro): Normal gait present Motor exam (neuro): 5/5 motor strength present throughout Sensory Exam: Normal double simultaneous stimulation for sensation Deep tendon reflexes (DTR's): Right patellar reflex intensity grade: 2+ and Left patellar reflex intensity grade: 2+ Extrem: General: Yes normal to inspection Course Course Course Narrative: RME - 72 yo female with history of sciatica and OA of the left hip who presents to the ER for evaluation of worsening left hip pain for last 2 weeks. No recent falls or trauma. Recently prescribed prednisone for sciatica by Dr. Foster.. No improvement in left hip pain w/ with tylenol. Plan: x-ray left hip, treat pain. Reevaluation(s) Reevaluation #1: labs show bilateral SI joint arthritis. Otherwise unremarkable. Patient up and ambulatory to the bathroom with a steady gait. plan for discharge home with NSAIDs, muscle relaxants, medicated patches with recommendations to follow-up with primary care doctor. Reviewed worrisome signs and symptoms when to return to the emergency room. Comfortable discharge rob Medications Administered Discontinued Medications Generic Name Dose Route Start Last Admin Trade Name Freq PRN Reason Stop Dose Admin Ketorolac Tromethamine 30 mg 02/18/23 13:04 02/18/23 13:08 Ketorolac Tromethamine 30 Mg/Ml Vial IM 02/18/23 13:05 30 mg ONCE ONE Administration Medical Decision Making Medical Decision Making [facility] Narrative: 72-year-old female with a history of HTN, long standing smoking history here with complaints of left lower back pain with radiation to the buttocks for the last few weeks with no known injury or trauma. Patient was seen and had outpatient urgent care and was given Flexeril and meloxicam on May 08. Patient then saw her primary care on 02/14 and given prednisone with continued pain. Patient denies any numbness in the groin. Patient denies bowel or bladder incontinence. Patient denies any fevers or chills. Patient denies any unintentional weight loss. Patient denies any radiation of pain. No numbness, tingling, weakness of the extremities pain on palpation over the left SI joint with compression and maneuvering. Pain with left straight leg raise. Normal neuro with no focal deficits. Plan is to obtain x-rays, provide analgesia Differential Diagnosis Differential Diagnoses: The differential diagnosis associated with the presentation includes sacroiliitis, sciatica, lumbar strain. Low concern cord compression, cauda equina, epidural abscess, malignancy with no history of immunocompromise state, IV drug abuse, normal neuro exam with no focal deficits or red flag symptoms Low concern for renal colic, pyelonephritis, AAA with gradual onset Admission/Observation Consideration of admission/observation: Escalation of care including admission/observation considered no neurological deficits or red flag symptoms suggest need for MRI emergently, neurosurgery consultation or transfer to tertiary care center Independent Interpretation I performed an independent interpretation of an: Plain X-Ray Interpretation: I independently reviewed the x-ray and agree with the radiology report Radiology Impression Discussion of test interpretation with radiology: I have reviewed the radiologist's reading. Radiologist Impression: [address] [address] XRay Report Signed Patient: Meryl Gonzalez MR#: [id number] : 1950 Acct:[id number] Age/Sex: 72 / F ADM Date: 02/18/23 Loc: .ED Attending Dr: Ordering Physician: Celeste Lou Date of Service: 02/18/23 Procedure(s): XR hip LT w PEL1V Accession Number(s): [id number] cc: Sb Foster MD; Celeste Lou~ EXAMINATION: XR HIP, LEFT CLINICAL INFORMATION: Left hip pain COMPARISON: None available. TECHNIQUE: Two views of the left hip. Pelvis one view. FINDINGS: Left hip: Alignment is anatomic. Hip joint space is maintained. No visible acute fracture or dislocation. No abnormal soft tissue calcification. Pelvis: Alignment is anatomic. Bilateral hip joint articulation is maintained, with maintained joint space. No acute fracture or dislocation is seen. No acute pelvic fractures seen. SI joints and symphysis pubis are intact. Mild bilateral SI joint arthritis. No abnormal soft tissue calcification. XR/XR hip LT w PEL1V IMPRESSION: 1. No radiographic evidence of acute fracture or dislocation. If there is clinical concern for a radiographically occult osseous injury, further evaluation with CT scan can be obtained. 2. Bilateral SI joint arthritis. External Record Review External record reviewed: Outpatient record Tests considered The following testing was considered but not selected: no neurological deficits or red flag symptoms suggest need for MRI emergently Prescription Management I considered prescription management with: Pain Medication Discharge Plan Discharge Clinical Impression: Sacroiliitis Patient Disposition: Home, Self-Care Instructions: Sacroiliitis (ED) Additional Instructions: it may be helpful to have a cortisone injection. Please call your primary care doctor as he can help you set this up. Apply heat or ice to your back Gentle stretching No heavy lifting or bending Prescriptions: New naproxen 500 mg tablet 500 mg PO BID PRN (Reason: pain) Qty: 20 0RF lidocaine [Lidoderm] 5 % adhesive patch,medicated 1 patch topical DAILY Qty: 15 0RF Rx Instructions: leave on most painful area for up to 12 hrs cyclobenzaprine 10 mg tablet 10 mg PO TID PRN (Reason: muscle spasm) Qty: 10 0RF No Action lisinopril 5 mg tablet 1 tab PO DAILY cholecalciferol (vitamin D3) [Vitamin D3] 25 mcg (1,000 unit) Tablet 25 mcg PO DAILY meloxicam 15 mg tablet 15 mg PO DAILY Qty: 14 0RF cyclobenzaprine 10 mg tablet 10 mg PO BEDTIME Qty: 14 0RF
--- NOTE | 2023-02-18 13:14 | PC.NURSE ---
pt medicated per JUL for 02/21 hip pain
== END 2023-02-18 14:50 | disposition home or self-care (01) ==
PROVIDERS: Emergency Provider Emergency Medicine Emergency Medical Services; PCP Internal Medicine
DX: M46.1 Sacroiliitis, not elsewhere classified (principal); M25.552 Pain in left hip; I10 Essential (primary) hypertension; F17.210 Nicotine dependence, cigarettes, uncomplicated; Z86.73 Personal history of transient ischemic attack (TIA), and cerebral infarction without residual deficits; Z79.899 Other long term (current) drug therapy
CPT/HCPCS: 73502; 96372; 99283; 99284; J1885

== ENCOUNTER 2023-02-21 08:43 | Emergency (ER) | payer MEDICARE, MEDICAID, SELFPAY ==
[2023-02-21 08:59] VITALS: BP 177/86; PULSE 114; O2SAT 96; BMI 23.3
--- NOTE | 2023-02-21 09:07 | PC.NURSE ---
a&ox3, vss aside from tachycardia on cardiac catheterization technician. pt comes in today d/t right hip sciatica pain and left hip arthritis pain. pt c/o 9/10 pain at this time causing her difficulty to ambulate/complete daily activities. provider bedside speaking w/ pt at this time. respirations even and unlabored. call gu placed within reach.
--- NOTE | 2023-02-21 09:44 | ED.GENADULT ---
HPI - General Adult General Chief complaint: Back Pain/Injury Stated complaint: sciatica pain x 1 month Time Seen by Provider: 02/21/23 08:49 Source: patient Mode of arrival: EMS History of Present Illness HPI narrative: 72-year-old female presents via EMS for continued sciatic related pain that is been evaluated by both her primary care doctor as well as the emergency room on 02/18. Patient states that the Tylenol/lidocaine patch in naproxen are not working very well and she has come in for additional pain medication. She denies any weakness/numbness/tingling and denies any associated fever or chills or urinary symptoms and states that she is concerned because she will have to continue to wait longer for the plan steroid injection by her primary care doctor. Related Data Home Medications Medication Instructions Recorded Confirmed cholecalciferol (vitamin D3) 25 25 mcg PO DAILY 10/22/21 02/08/23 mcg (1,000 unit) tablet (Vitamin D3) lisinopril 5 mg tablet 1 tab PO DAILY 10/22/21 02/08/23 Previous Rx's Medication Instructions Recorded cyclobenzaprine 10 mg tablet 10 mg PO BEDTIME #14 tabs 02/06/23 meloxicam 15 mg tablet 15 mg PO DAILY #14 tabs 02/06/23 cyclobenzaprine 10 mg tablet 10 mg PO TID PRN muscle spasm #10 02/18/23 tabs lidocaine 5 % topical patch 1 patch topical DAILY #15 ea 02/18/23 (Lidoderm) naproxen 500 mg tablet 500 mg PO BID PRN pain #20 tabs 02/18/23 tramadol 50 mg tablet 25 mg (1/2 x 50 mg) PO Q8H PRN 02/21/23 severe pain (scale score 7-10) #7 tabs Allergies Allergy/AdvReac Type Severity Reaction Status Date / Time No Known Allergies Allergy Verified 02/21/23 08:59 [No Known Allergies*] Review of Systems Review of Systems: Pertinent positives and negatives as stated in HPI PMFSH Past Medical History Source: nursing notes reviewed Medical History Low back pain Stress incontinence of urine Hx of vertigo History of CVA (cerebrovascular accident) Wears dentures Smoker Surgical History History of bunionectomy of both great toes Hx of colonoscopy Social History Social History Are you a primary youth career specialist to a significant other at home: No Do you presently have visiting nurse or other home services: No Unable to assess alcohol history related to: Unknown Patient Tobacco Use Status: Current everyday Tobacco user Tobacco use type: Cigarette Cigarettes Per Day: 12 Smoked in Last 30 Days: Yes Use of substances other than those prescribed or required for medical reasons: No Advance Directives: No Advance Directives Information Provided: Yes Physical Exam ED Vital Signs: BMI result Body Mass Index 23.3 VITAL SIGNS: Reviewed. GENERAL: Well developed, well nourished, in no acute distress. HEAD: Normocephalic/atraumatic EYES: PERRLA, EOMI EARS: Ext canals without abnormality NOSE: Nares patent bilateral OROPHARYNX: no oral lesions noted, posterior pharynx clear NECK: Supple, no adenopathy LUNGS: Normal breath sounds. No adventitious sounds or accessory muscle use. CARDIOVASCULAR: Regular rate and rhythm without noted murmurs ABDOMEN: Soft, non-tender, non-distended with bowel sounds. MUSCULOSKELETAL: No tenderness, deformities, or effusions noted on gross inspection. EXTREMITIES: No cyanosis, clubbing or edema. SKIN: Inspection of the skin reveals no rashes NEUROLOGIC: Alert and oriented x 4. Strength and sensation to light touch were grossly intact x 4. Medical Decision Making Medical Decision Making [facility] Narrative: 72-year-old female with history and clinical presentation likely persistent sciatic pain I did review all labs and imaging studies which on her last visit at 02/18 demonstrated bilateral SI joint arthritis. I placed an order for urinalysis which is negative for UTI or hematuria. I have given patient a dose of tramadol he here in the emergency room and will discharge on a short course. She has no neurologic deficits identified, there is no concern for occult pelvic fracture is there is no traumatic event history there is no suggestion of a cauda equina. Otherwise, patient was instructed to follow back up with her primary care doctor and also discussed the possibility of physical therapy. Differential Diagnosis Differential Diagnoses: The differential diagnosis associated with the presentation includes Please see the discussion above Admission/Observation Consideration of admission/observation: Escalation of care including admission/observation considered Please see the discussion above Lab Data [facility] Lab Attestation statement: I reviewed the patient's lab results. Please see the discussion above Labs: Lab Results 02/21/23 Range/Units 09:24 Urine Color Yellow Urine Appearance Clear Urine pH 6.5 (5.0-9.0) Ur Specific [place] 1.010 (1.005-1.025) Urine Protein Negative (Neg-Trace) mg/dL Urine Glucose (UA) 100 H (Negative) mg/dL Urine Ketones Negative (Negative) mg/dL Urine Blood Negative (Negative) Urine Nitrite Negative (Negative) Ur Leukocyte Esterase Trace H (Negative) Urine RBC 0-2 (0-2) /HPF Urine WBC 0-5 (0-5) /HPF Ur Squamous Epith Cells 0-2 (0-2) /HPF Urine Bacteria None Seen (None Seen) Hyaline Casts 0-2 (0-2) /LPF External Record Review External record reviewed: Outpatient record, Prior outpatient labs and Prior outpatient radiology Discharge Plan Discharge Clinical Impression: Sciatica, Arthritis Patient Disposition: Home, Self-Care Instructions: Osteoarthritis (ED), Sciatica (ED) Additional Instructions: 1. Tylenol 1000 mg, orally, every 6 hours as needed for pain control. Do not exceed 4000 mg within 24 hours. 2. Continue to use the lidocaine patches that you have at home for additional symptom relief. 3. It is important to remember that this pain will take time to resolve but definitely follow-up with your primary care doctor and follow-up for possible referral to physical therapy as well as the steroid injection. Return to the ER for any worsening symptoms. As you will be receiving prescription for tramadol, you need to stop taking any cyclobenzaprine/Flexeril that you have at home. Prescriptions: New tramadol 50 mg tablet 25 mg PO Q8H PRN (Reason: severe pain (scale score 7-10)) Qty: 7 0RF No Action lisinopril 5 mg tablet 1 tab PO DAILY cholecalciferol (vitamin D3) [Vitamin D3] 25 mcg (1,000 unit) Tablet 25 mcg PO DAILY naproxen 500 mg tablet 500 mg PO BID PRN (Reason: pain) Qty: 20 0RF lidocaine [Lidoderm] 5 % adhesive patch,medicated 1 patch topical DAILY Qty: 15 0RF Rx Instructions: leave on most painful area for up to 12 hrs cyclobenzaprine 10 mg tablet 10 mg PO TID PRN (Reason: muscle spasm) Qty: 10 0RF meloxicam 15 mg tablet 15 mg PO DAILY Qty: 14 0RF cyclobenzaprine 10 mg tablet 10 mg PO BEDTIME Qty: 14 0RF Referrals: Sb Foster MD [Primary Care Provider] -
--- NOTE | 2023-02-21 09:49 | PC.NURSE ---
medication administered per provider order. will reassess pain level shortly.
--- NOTE | 2023-02-21 10:33 | PC.NURSE ---
pt's sister (october from emergency contact) called and notified that pt is ready for pickup. states that they will be here shortly.
== END 2023-02-21 10:34 | disposition home or self-care (01) ==
PROVIDERS: Emergency Provider Student in an Organized Health Care Education/Training Program; PCP Internal Medicine
DX: M54.40 Lumbago with sciatica, unspecified side (principal); Z79.899 Other long term (current) drug therapy; F17.210 Nicotine dependence, cigarettes, uncomplicated; Z71.6 Tobacco abuse counseling
CPT/HCPCS: 81001; 99283; 99284

== ENCOUNTER 2023-03-03 09:16 | Outpatient (REF) | payer MEDICARE, MEDICAID, SELFPAY ==
--- NOTE | ~2023-03-03 | CT_ITS ---
EXAMINATION: CT PELVIS WITHOUT CONTRAST CLINICAL INFORMATION: Pelvic and sacral pain COMPARISON: None available. TECHNIQUE: Helical scanning was performed with submillimeter collimation through the pelvis. Sagittal and coronal multiplanar 2-D reconstructions were obtained. This CT examination was performed using dose optimization techniques as appropriate, variously including the following: *Automated exposure control *Adjustment of mA and/or kV according to patient size (this includes techniques or standardized protocols for targeted exams where dose is matched to indication/reason for exam; i.e. extremities or head) *Use of iterative reconstruction technique DLP: 448 mGy-cm FINDINGS: PELVIS: Visualized pelvic organs. Unremarkable uterus. Large amount of fecal debris seen in the colon consistent with constipation. Urinary bladder is unremarkable. There is no pelvic or abdominal ascites. There is no lymphadenopathy. Partially seen kidneys, base of the gallbladder and part of right lobe of the liver are unremarkable. Osseous structures there is no evidence of fracture in hips or pelvis. Distal lumbar spine revealed mild wedge-shaped deformity of L4 and L5 vertebral bodies, facets arthropathy in lower lumbar spine. Both hips are intact. Sacroiliac joints demonstrate mild degenerative changes with vacuum phenomenon and subchondral sclerosis and sacral portion of joints.. There is diffuse osteopenia CT/CT pelvis wo IV con IMPRESSION: 1. No evidence of fracture or dislocation. Degenerative changes in lower lumbar spine and sacroiliac joints. 2. Constipation.
== END 2023-03-03 09:17 | disposition home or self-care (01) ==
LOC: HO.CT 09:16
PROVIDERS: PCP Internal Medicine; Visit Provider Internal Medicine
DX: M54.50 Low back pain, unspecified (principal)
CPT/HCPCS: 72192

== ENCOUNTER 2023-03-23 10:55 | Outpatient (AMB) | payer MEDICARE, MEDICAID, SELFPAY ==
--- NOTE | 2023-03-23 11:06 | A.OFFVIS_ITS ---
Intake Intake Visit Reasons: [employer]- B/L Hip pain Intake Note: Pt presents to the office today with complaints of progressively worsening low back pain which radiates into both of her legs. She also has intermittent pain along the posterior aspects of both of her hips. Her symptoms have gotten worse over the last few years in spite of continued non operative treatments. She has done physical therapy for 12 weeks over the last 6 months which aggravated her pain. She also reports intermittent weakness in both of her legs. She has tried Tylenol and anti-inflammatory medicines which gave her minimal relief. Allergies No Known Allergies [No Known Allergies*] Allergy (Verified 03/23/23 11:07) Medication List - Last Reconciled 03/23/23 by Martell Darby MD lisinopril 1 tab PO DAILY PFSH Medical History Low back pain Stress incontinence of urine Hx of vertigo History of CVA (cerebrovascular accident) Wears dentures Smoker Surgical History History of bunionectomy of both great toes Hx of colonoscopy Social History (Updated 03/23/23 @ 11:09 by July Bledsoe MA) Household Members: None Housing: Apartment Are you a primary animal care provider to a significant other at home: No Do you presently have visiting nurse or other home services: No Alcohol intake: never Patient Tobacco Use Status: Current everyday Tobacco user Tobacco use type: Cigarette Cigarettes Per Day: 12 Use of substances other than those prescribed or required for medical reasons: No Physical Exam Const Other: Well-nourished well-developed very friendly female awake alert and oriented x3 in no acute distress Back/Spine/Pelvis Other: Low back examination shows bilateral paraspinal muscle tenderness, pain with range of motion, positive straight leg raise test bilaterally at 70 degrees, 4/5 strength with testing of her bilateral hip flexors and knee extensors Results Reviewed Results Reviewed: X-rays and CT scan of the patient's bilateral hip show mild diffuse joint space narrowing, sacroiliac degenerative changes bilaterally, no acute bony abnormalities X-rays of the patient's lumbar spine show diffuse degenerative disc disease, no acute bony abnormalities Assessment & Plan Assessment & Plan (1) Low back pain: Code(s): M54.50 - Low back pain, unspecified Plan Ms. Gonzalez presents with progressively worsening low back pain as well as associated bilateral leg weakness most likely due to lumbar stenosis or a disc herniation. Thus, I will send the patient for an MRI of her lumbar spine for further evaluation. I will contact her by phone once the MRI is completed to discuss the findings and treatment options. If she does have significant stenosis or disc herniation I will [facility]. The patient also has bilateral hip pains most likely due to sacroiliac joint degenerative changes. I did give her a Medrol Dosepak to help with her symptoms in the meantime. Feel free to call me at any time should questions regarding her orthopedic management arise. Thank you very much for asking me to see this very friendly patient. I spent 22 minutes in reviewing the patient's records and imaging studies, seeing the patient and documenting in the medical record. Orders: Orders MR lumbar spine wo con Today M54.41 - Lumbago with sciatica, right side, M54.42 - Lumbago with sciatica, left side Medications: New methylprednisolone (Medrol (Jeovany)) PO PER PKG DIR 21 ea 0RF Coding Level of Care Code New Pt Level 2 (26004) Diagnoses Low back pain M54.50
== END 2023-03-23 11:34 | disposition home or self-care (01) ==
PROVIDERS: PCP Internal Medicine; Visit Provider Orthopaedic Surgery
DX: M54.50 Low back pain, unspecified (principal)
CPT/HCPCS: 99202

== ENCOUNTER → 2023-03-23 10:55 | Outpatient (BNVA) | payer MEDICARE, MEDICAID, SELFPAY | PROVIDERS: PCP Internal Medicine; Visit Provider Orthopaedic Surgery | DX: M54.50 Low back pain, unspecified (principal) | CPT/HCPCS: 99202 ==

== ENCOUNTER 2023-04-04 10:19 | Outpatient (REF) | payer MEDICARE, MEDICAID, SELFPAY ==
--- NOTE | ~2023-04-04 | MR_ITS ---
EXAMINATION: MR LUMBAR SPINE WITHOUT CONTRAST CLINICAL INFORMATION: 72-year-old with lumbago and left sciatica. COMPARISON: 06/21/2022 x-rays. TECHNIQUE: MRI of the lumbar spine was obtained using routine sequences without contrast. FINDINGS: Coronal Alignment: Mild dextrocurvature convex to the right at L1-L2 is slightly more prominent on current study. Sagittal Alignment: There is mild lordotic reversal centered at T12-L1, more apparent on current study. Lumbosacral Junction: Normal. There are 5 fex-dgi-nasaxdn lumbar-type vertebral bodies. Vertebral Bodies: There is fend-qf-gbqmgnsw chronic loss of height of the L5 vertebral body, stable in appearance. There is xdgk-cl-qsewbbvl loss of height, asymmetric to the right along the superior endplate of L4 since the previous exam, consistent with development of a nonhealed superior endplate compression fracture with some marrow edema along the superior endplate. Stable L3 vertebral body height, normal height. Moderate loss of height of the L2 vertebral body, progressed from the previous study, consistent with a chronic, healed compression deformity with mild buckling of the posterior cortex and slight retropulsion of the inferior endplate. Severe compression fracture deformity of the L1 vertebral body has developed since the previous exam with marrow edema consistent with a nonhealed fracture, with retropulsion of the posterior cortex. Hppwvoao-vf-tixqkx, nonhealed compression fracture deformity of T12, asymmetric to the left, has also progressed from the previous exam, with mild retropulsion of the inferior endplate on current study. There is a yqqc-le-qayqjyxc chronic, healed compression fracture deformity along the superior endplate of T10. Disc Spaces and Endplates: Multilevel disc desiccation noted, with Schmorl's endplates at T11-T12. Spinal Canal: No abnormal developmental findings. Bone Marrow: Marrow edema noted in the T12 and L1 vertebral bodies and along the superior endplate of L4 consistent with nonhealed fractures. Conus Medullaris: Terminates at L1. Morphology and signal are normal. Intradural Nerve Roots: Within normal limits. L5-S1: Mild diffuse disc bulging with a small central annular fissure noted with minimal indentation of the ventral thecal sac. Mild bilateral facet arthrosis noted without spinal canal stenosis. Mild bilateral neural foraminal stenosis also noted without neural impingement. L4-L5: Mild diffuse disc bulging, slightly asymmetric to the right, with mild indentation of the ventral thecal sac. There is lgmq-uj-gjxubcbb facet arthropathy, left more than right, without significant central spinal canal stenosis. There is mild narrowing of the right subarticular zone and there is mild foraminal narrowing bilaterally without neural impingement. L3-L4: There is mild retropulsion of the compressed superior endplate of L4 with mild flattening of the ventral dural sac. There is posterolateral disc protrusion, left more than right, without spinal canal stenosis. Mild facet arthropathy noted bilaterally with minor foraminal narrowing without neural impingement. L2-L3: Disc bulging and bilateral foraminal disc protrusions, left more than right, noted without neural impingement. Slight flattening of the ventral dural sac also partly related to buckling/retropulsion of the inferior endplate of the compressed L2 vertebral body. Lrcn-pd-xkodeyri bilateral facet arthropathy noted without significant central canal stenosis. Slight narrowing of the right subarticular zone also noted with mild foraminal narrowing bilaterally. L1-L2: Retropulsion of the inferior endplate of the compressed L1 vertebral body noted with retropulsion of the posterior cortex and moderate flattening of the ventral dural sac with mild facet arthrosis and ligamentum flavum thickening. There is mild central canal stenosis and there is jalb-mf-cmbbrcsp narrowing of the subarticular zones, left more than right, with ooin-sf-ubytajoh bilateral neural foraminal stenosis. T12-L1: Mild posterior disc osteophyte complex noted partly related to some retropulsion of the inferior endplate of the compressed T12 vertebral body with slight flattening of the ventral dural sac without canal stenosis or conus impingement. There is moderate left-sided foraminal narrowing. There are some paraspinal edematous changes in the soft tissues noted posterolaterally on the left at the T12 and L1 levels, likely reflecting granulation tissue. T11-T12: No significant disc bulge or herniation. Mild facet arthropathy noted bilaterally without significant canal or neural foraminal stenosis. Paravertebral and Included Extraspinal Soft Tissues: There is posterior paraspinal and psoas muscle sarcopenia. There is nodularity of the left adrenal gland, with a 1.5 cm nonspecific left adrenal nodule and a possible second, similar-sized nodule in the same gland. Recommend 1-year follow up adrenal protocol CT. Also, if clinically indicated, consider concurrent laboratory evaluation for possible pheochromocytoma. MR/MR lumbar spine wo con IMPRESSION: 1. Mild lordotic reversal centered at T12-L1 with mild dextrocurvature convex to the right at L1-L2 more apparent on current study. 2. New, nonhealed fractures of the T12, L1, and L4 vertebral bodies as described above and a chronic, healed compression deformity of L2. See above for details. 3. Multilevel disc bulging and disc protrusions as described above with multilevel bilateral facet arthropathy without significant central spinal canal stenosis. There is qotd-iw-qyeppeed narrowing of the subarticular zones at L1-L2, right more than left at L2-L3, and on the right at L4-L5 with xphi-rs-rxzrpgpj bilateral neural foraminal stenosis at L1-L2 and mild foraminal narrowing bilaterally at L2-L3 through L5-S1 without definite neural impingement. 4. Posterior paraspinal and psoas muscle sarcopenia. 5. Nodularity of the left adrenal gland. Recommend 1-year follow up adrenal protocol CT. Also, if clinically indicated, consider concurrent laboratory evaluation for possible pheochromocytoma.
== END 2023-04-04 10:20 | disposition home or self-care (01) ==
LOC: HO.MRI 10:19
PROVIDERS: PCP Internal Medicine; Visit Provider Orthopaedic Surgery
DX: M54.42 Lumbago with sciatica, left side (principal); M54.41 Lumbago with sciatica, right side
CPT/HCPCS: 72148

== ENCOUNTER 2023-04-11 11:28 | Outpatient (AMB) | payer MEDICARE, MEDICAID, SELFPAY ==
--- NOTE | 2023-04-11 11:29 | A.OFFVIS_ITS ---
Intake Intake Visit Reasons: ov- MRI Lumbar Spine review Intake Note: Pt presents to the office today with complaints of progressively worsening low back pain which radiates into both of her legs. She also has intermittent pain along the posterior aspects of both of her hips. Her symptoms have gotten worse over the last few years in spite of continued non operative treatments. She has done physical therapy for 12 weeks over the last 6 months which aggravated her pain. She also reports intermittent weakness in both of her legs. She has tried Tylenol and anti-inflammatory medicines which gave her minimal relief. Allergies No Known Allergies [No Known Allergies*] Allergy (Verified 04/11/23 11:34) Medication List - Last Reconciled 04/11/23 by Martell Darby MD lisinopril 1 tab PO DAILY methylprednisolone (Medrol (Jeovany)) PO PER PKG DIR PFSH Medical History Low back pain Stress incontinence of urine Hx of vertigo History of CVA (cerebrovascular accident) Wears dentures Smoker Surgical History History of bunionectomy of both great toes Hx of colonoscopy Household Members: None Housing: Apartment Are you a primary healthcare economics manager to a significant other at home: No Do you presently have visiting nurse or other home services: No Alcohol intake: never Patient Tobacco Use Status: Current everyday Tobacco user Tobacco use type: Cigarette Cigarettes Per Day: 12 Physical Exam Const Other: Well-nourished well-developed very friendly female awake alert and oriented x3 in no acute distress Back/Spine/Pelvis Other: Low back examination shows pain with range of motion, bilateral paraspinal muscle tenderness, midline tenderness, no overlying Results Reviewed Results Reviewed: MRI report of the patient's lumbar spine shows multiple vertebral compression fractures, mild to moderate stenosis Assessment & Plan Assessment & Plan (1) Compression fracture of vertebrae: Code(s): M48.50XA - Collapsed vertebra, not elsewhere classified, site unspecified, initial encounter for fracture Plan: Ms. Gonzalez presents with progressively worsening back pain due to stenosis as well as multiple compression fractures. Thus, I will refer her to the neuro surgery Department here at [facility]. The patient will follow-up as instructed. Feel free to call me at any time should questions regarding her orthopedic management arise. I spent 22 minutes in reviewing the patient's records and imaging studies, seeing the patient and documenting in the medical record. Orders: Referrals Neurosurgery Referral M48.50XA - Collapsed vertebra, not elsewhere classified, site unspecified, initial encounter for fracture Coding Level of Care Code Est Pt Level 2 (30992) Diagnoses Compression fracture of vertebrae M48.50XA
== END 2023-04-11 11:53 | disposition home or self-care (01) ==
PROVIDERS: PCP Internal Medicine; Visit Provider Orthopaedic Surgery
DX: M48.50XA Collapsed vertebra, not elsewhere classified, site unspecified, initial encounter for fracture (principal)
CPT/HCPCS: 99212

== ENCOUNTER → 2023-04-11 11:28 | Outpatient (BNVA) | payer MEDICARE, MEDICAID, SELFPAY | PROVIDERS: PCP Internal Medicine; Visit Provider Orthopaedic Surgery | DX: M48.50XD Collapsed vertebra, not elsewhere classified, site unspecified, subsequent encounter for fracture with routine healing (principal) | CPT/HCPCS: 99212 ==

== ENCOUNTER 2023-04-14 10:23 | Outpatient (AMB) | payer MEDICARE, MEDICAID, SELFPAY ==
--- NOTE | 2023-04-14 10:32 | HO.SPINEOV ---
Intake Intake Visit Reasons: collapsed vertebra Intake Note: Ms. Gonzalez is here today c/o back pain. [place] done @ [facility] [place] [facility] [place] [employer]bin Washer Required: No Allergies No Known Allergies [No Known Allergies*] Allergy (Verified 04/11/23 11:34) Assessment & Plan Assessment & Plan (1) Compression fracture of vertebrae: Code(s): M48.50XA - Collapsed vertebra, not elsewhere classified, site unspecified, initial encounter for fracture Plan Dear Dr. Darby, Thank you for referring Meryl to our office today. She is a pleasant 72 y/o F who comes in today with a CC of severe low back pain ongoing since mid February. She states that she awoke on February 25 with significant low back pain without any inciting incident. She has a pertinent medical history of osteoporosis as evidenced by DEXA scan completed on 06/22/2021 (T score -3.2). She states that she has no radiation of symptoms and that her symptoms are located in her low back and are worse when lying down. She reports no numbness/tingling/burning associated with her pain. She reports that she gets mild relief of symptoms with the use of tramadol, but feels that irrn-rir-sbaahoy medications have been ineffective. She has been to 12 weeks of physical therapy over the course of the last 1 year and finds that physical therapy has not been helpful for her. She was recently started on a methylprednisone Dosepak which he felt was somewhat helpful for her while she was taking it. PMH: High blood pressure, osteoporosis, hysterectomy, unspecified foot surgery, breast lumpectomy. Social hx: Patient smokes 1/2 pack per day. No disclosed substance use. Medications: Lisinopril. Allergies: NKDA. Physical exam: The patient has 5/5 strength in her upper and lower extremities. She has no sensational deficits. She does have some pain to direct palpation of the lower lumbar spine, but no pain to palpation of the lower thoracic or upper lumbar spine. She has 2+ intact reflexes. (-) straight leg raise bilaterally. Patient is able to ambulate well, rises from a seated position without difficulty. She has notable kyphosis on exam. Imaging review: MRI of the lumbar spine completed at [facility] shows acute compression fracture at T12, L1, L4. The compression fractures found a T12 and L1 are worse than the one seen at L4. There is also significant disc height loss at the levels of T12-L1 and L1-L2. Inflammation also noted on STIR segment at T12,L1, L4, worse at T12, L1. No significant central canal impingement or foraminal stenosis noted. Impression: Meryl is a pleasant 72-year-old female who comes in today with a chief complaint of severe acute low back pain that started in mid February. She has a history of hip pain as well that she reports is unrelated to her newer onset low back pain. She was diagnosed with osteoporosis last year, as evidence by her previous DEXA bone scan. She reports no inciting incident for low back pain but states that she just awoke one morning and felt as though she had extreme pain in her lower back. After being seen by Orthopedics an MRI was ordered, which showed compression fractures the level of T12, L1, L4 as noted above. There is no significant nerve impingement noted on MRI imaging. I believe her low back pain to be stemming from the acute compression fractures. If our office was to schedule her for kyphoplasty we would need to book her out near July, and she is in quite a bit of acute pain. She will be referred to Dr. Cain's office in the hopes that he can get her in for kyphoplasty sooner than this to help relieve her severe pain. Thank you for allowing us to care for your patient. The total time spent with this visit with this patient was 45 minutes reviewing history, physical exam, MRI imaging review, and implementation of treatment plan or further diagnostic testing Gregory Polanco MD,PhD [facility] Coding Level of Care Code New Pt Level 4 (31401) Global (07386) Diagnoses Compression fracture of vertebrae M48.50XA
== END 2023-04-14 10:55 | disposition home or self-care (01) ==
PROVIDERS: PCP Internal Medicine; Referring Provider Orthopaedic Surgery; Visit Provider Physician Assistant
DX: M48.50XA Collapsed vertebra, not elsewhere classified, site unspecified, initial encounter for fracture (principal)
CPT/HCPCS: 99204

== ENCOUNTER → 2023-04-14 10:23 | Outpatient (BNVA) | payer MEDICARE, MEDICAID, SELFPAY | PROVIDERS: PCP Internal Medicine; Visit Provider Physician Assistant | DX: M48.50XA Collapsed vertebra, not elsewhere classified, site unspecified, initial encounter for fracture (principal) | CPT/HCPCS: 99202 ==

== ENCOUNTER 2023-04-17 11:51 | Outpatient (REF) | payer MEDICARE, MEDICAID, SELFPAY ==
[2023-04-17 13:22] LABS: MANUAL DIFF FLAG NO
[2023-04-17 14:00] LABS: Basophils Percent Auto 0.4 % (0-2); Eosinophils Percent Auto 0.4 % (0-4); Hematocrit 42.8 % (37.0-47.0); Hemoglobin 14.4 g/dl (12.0-16.0); Imm Gran Abs Auto 0.03 X10*3/uL (0.00-0.03); Imm Gran Pct Auto 0.4 % (0.0-0.4); Lymphocytes Percent Auto 13.7 % (20-40); Mean Corpuscular HGB Conc 33.6 g/dl (31.0-35.0); Mean Corpuscular Volume 89.2 fL (80.0-98.0); Mean Platelet Volume 10.1 fL (9.4-12.3); Monocytes Absolute Auto 0.5 X10*3/uL (0.1-1.2); Monocytes Percent Auto 6.9 % (2-11); Neutrophils Absolute Auto 5.5 x10*3/uL (2.0-8.3); Neutrophils Percent Auto 78.2 % (45-73); Platelet Count 289 X10*3/uL (160-400); Red Cell Distribution Width 12.4 % (11.0-16.0); White Blood Count 7.1 X10*3/uL (4.8-10.8)
[2023-04-17 14:21] LABS: Alanine Aminotransferase 21 U/L (0-31); Albumin Level 4.1 g/dL (3.5-5.0); Alkaline Phosphatase 123 U/L (39-117); Anion Gap 13 (12-20); Aspartate Amino Transferase 17 U/L (5-31); Bilirubin Total 0.4 mg/dL (0.0-1.0); Blood Urea Nitrogen 11 mg/dL (9-16); Calcium 9.3 mg/dL (8.4-10.2); Carbon Dioxide 27 mmol/L (22-29); Chloride 109 mmol/L (96-108); Estimated Glomerular Filt Rate > 60; Glucose Random 82 mg/dL (60-115); Potassium 4.4 mmol/L (3.3-5.1); Sodium 145 mmol/L (135-145)
== END 2023-04-17 11:52 | disposition home or self-care (01) ==
LOC: HO.10HDL 11:51
PROVIDERS: Visit Provider Internal Medicine
DX: M54.9 Dorsalgia, unspecified (principal); J44.9 Chronic obstructive pulmonary disease, unspecified
CPT/HCPCS: 36415; 80053; 85025

== ENCOUNTER 2023-05-01 14:03 | Outpatient (AMB) | payer MEDICARE, MEDICAID, SELFPAY ==
--- NOTE | 2023-05-01 14:21 | MHC.OFFVIS ---
Intake Vital Signs 05/01/23 14:23 Height 5 ft 9 in Weight 142 lb BMI 21.0 BP 177/91 H Blood Pressure Location Lt brachial Position Sitting Respiration 12 Pulse 123 H Pulse Source Pulse Oximeter Pulse Oximetry (%) 93 Oxygen Delivery Method Room Air Intake Visit Reasons: Collapsed vertebra, not elsewhere classified/lvm Allergies No Known Allergies [No Known Allergies*] Allergy (Verified 05/01/23 14:24) Medication List - Last Reconciled 05/01/23 by Alicia Castillo LPN alendronate 35 mg PO QWEEK ibuprofen 600 mg PO TID lisinopril 1 tab PO DAILY tramadol 50 mg PO BID PRN HPI Collapsed vertebra, not elsewhere classified/lvm HPI Details 72-year-old female who presents today to the office for an evaluation of osteoporotic VCF. She reports severe low back pain that has been ongoing since January 2023. She has a burning and stabbing pain in her lower back. her pain is rated at 10/10 in intensity. She states that she woke with significant low back pain without any inciting incident. She has no radiating pain symptoms. Her symptoms are located in her low back and are worse when lying down. She has difficulty standing for more than 20 minutes. She reports no numbness, paresthesia, or burning associated with her pain. She took tramadol and udrc-tna-oyowmmm medications with minimal benefit. She has been on 12 weeks of physical therapy over the course of the last year, which is not helpful. She underwent a DEXA scan on 06/22/2021, which showed a T-score of -3.2. She has previously been diagnosed with osteoporosis and recently started taking Fosamax. She is taking Vit D supplements. She smokes cigarettes one pack a day. She is trying to quit smoking. [facility] Medical History Low back pain Stress incontinence of urine Hx of vertigo History of CVA (cerebrovascular accident) Wears dentures Smoker Surgical History History of bunionectomy of both great toes Hx of colonoscopy Social History Household Members: None Housing: Apartment Are you a primary pediatric critical care nurse to a significant other at home: No Do you presently have visiting nurse or other home services: No Alcohol intake: never Patient Tobacco Use Status: Current everyday Tobacco user Tobacco use type: Cigarette Cigarettes Per Day: 12 Review of Systems Const All systems reviewed & are unremarkable except as noted in HPI and below Physical Exam Vital Signs: Last Vital Signs Pulse 123 H 05/01/23 14:23 Resp 12 05/01/23 14:23 BP 177/91 H 05/01/23 14:23 Pulse Ox 93 05/01/23 14:23 Oxygen Delivery Method Room Air 05/01/23 14:23 BMI result Body Mass Index 21.0 General: Appears afebrile. Alert and oriented. Mood and affect appropriate. Follows and participates in conversation appropriately. Respiratory effort is unlabored. Able to transition from sit to stand unassisted. Ambulates with bilaterally normal heel strike and toe off. Pain is more pronounced across the axial low back. There is mild midback tenderness in the vicinity of the T12 and L1 region. There is moderate tenderness overlying the L4 vertebral body. Results Reviewed Results Reviewed: 04/04/23: MR LUMBAR SPINE WITHOUT CONTRAST FINDINGS: Coronal Alignment: Mild dextrocurvature convex to the right at L1-L2 is slightly more prominent on current study. Sagittal Alignment: There is mild lordotic reversal centered at T12-L1, more apparent on current study. Lumbosacral Junction: Normal. There are 5 tit-vee-xmgvwlt lumbar-type vertebral bodies. Vertebral Bodies: There is kbhq-zx-qodeopts chronic loss of height of the L5 vertebral body, stable in appearance. There is krdp-rm-kkgiovbi loss of height, asymmetric to the right along the superior endplate of L4 since the previous exam, consistent with development of a nonhealed superior endplate compression fracture with some marrow edema along the superior endplate. Stable L3 vertebral body height, normal height. Moderate loss of height of the L2 vertebral body, progressed from the previous study, consistent with a chronic, healed compression deformity with mild buckling of the posterior cortex and slight retropulsion of the inferior endplate. Severe compression fracture deformity of the L1 vertebral body has developed since the previous exam with marrow edema consistent with a nonhealed fracture, with retropulsion of the posterior cortex. Gdtdpzan-ay-yjonzk, nonhealed compression fracture deformity of T12, asymmetric to the left, has also progressed from the previous exam, with mild retropulsion of the inferior endplate on current study. There is a vgcg-fw-kbocyclq chronic, healed compression fracture deformity along the superior endplate of T10. Disc Spaces and Endplates: Multilevel disc desiccation noted, with Schmorl's endplates at T11-T12. Spinal Canal: No abnormal developmental findings. Bone Marrow: Marrow edema noted in the T12 and L1 vertebral bodies and along the superior endplate of L4 consistent with nonhealed fractures. Conus Medullaris: Terminates at L1. Morphology and signal are normal. Intradural Nerve Roots: Within normal limits. L5-S1: Mild diffuse disc bulging with a small central annular fissure noted with minimal indentation of the ventral thecal sac. Mild bilateral facet arthrosis noted without spinal canal stenosis. Mild bilateral neural foraminal stenosis also noted without neural impingement. L4-L5: Mild diffuse disc bulging, slightly asymmetric to the right, with mild indentation of the ventral thecal sac. There is jusd-kh-fhjdedfa facet arthropathy, left more than right, without significant central spinal canal stenosis. There is mild narrowing of the right subarticular zone and there is mild foraminal narrowing bilaterally without neural impingement. L3-L4: There is mild retropulsion of the compressed superior endplate of L4 with mild flattening of the ventral dural sac. There is posterolateral disc protrusion, left more than right, without spinal canal stenosis. Mild facet arthropathy noted bilaterally with minor foraminal narrowing without neural impingement. L2-L3: Disc bulging and bilateral foraminal disc protrusions, left more than right, noted without neural impingement. Slight flattening of the ventral dural sac also partly related to buckling/retropulsion of the inferior endplate of the compressed L2 vertebral body. Bjsx-du-rapiogkd bilateral facet arthropathy noted without significant central canal stenosis. Slight narrowing of the right subarticular zone also noted with mild foraminal narrowing bilaterally. L1-L2: Retropulsion of the inferior endplate of the compressed L1 vertebral body noted with retropulsion of the posterior cortex and moderate flattening of the ventral dural sac with mild facet arthrosis and ligamentum flavum thickening. There is mild central canal stenosis and there is tzsg-gn-tgbxnhcg narrowing of the subarticular zones, left more than right, with uiir-bg-iznoqkef bilateral neural foraminal stenosis. T12-L1: Mild posterior disc osteophyte complex noted partly related to some retropulsion of the inferior endplate of the compressed T12 vertebral body with slight flattening of the ventral dural sac without canal stenosis or conus impingement. There is moderate left-sided foraminal narrowing. There are some paraspinal edematous changes in the soft tissues noted posterolaterally on the left at the T12 and L1 levels, likely reflecting granulation tissue. T11-T12: No significant disc bulge or herniation. Mild facet arthropathy noted bilaterally without significant canal or neural foraminal stenosis. Paravertebral and Included Extraspinal Soft Tissues: There is posterior paraspinal and psoas muscle sarcopenia. There is nodularity of the left adrenal gland, with a 1.5 cm nonspecific left adrenal nodule and a possible second, similar-sized nodule in the same gland. Recommend 1-year follow up adrenal protocol CT. Also, if clinically indicated, consider concurrent laboratory evaluation for possible pheochromocytoma. IMPRESSION: 1. Mild lordotic reversal centered at T12-L1 with mild dextrocurvature convex to the right at L1-L2 more apparent on current study. 2. New, nonhealed fractures of the T12, L1, and L4 vertebral bodies as described above and a chronic, healed compression deformity of L2. See above for details. 3. Multilevel disc bulging and disc protrusions as described above with multilevel bilateral facet arthropathy without significant central spinal canal stenosis. There is hesh-mp-mljfkzlp narrowing of the subarticular zones at L1-L2, right more than left at L2-L3, and on the right at L4-L5 with nhvs-mz-kjjkyhwy bilateral neural foraminal stenosis at L1-L2 and mild foraminal narrowing bilaterally at L2-L3 through L5-S1 without definite neural impingement. 4. Posterior paraspinal and psoas muscle sarcopenia. 5. Nodularity of the left adrenal gland. Recommend 1-year follow up adrenal protocol CT. Also, if clinically indicated, consider concurrent laboratory evaluation for possible pheochromocytoma. Assessment & Plan Assessment & Plan (1) Compression fracture of vertebrae: Code(s): M48.50XA - Collapsed vertebra, not elsewhere classified, site unspecified, initial encounter for fracture Qualifiers: Encounter type: initial encounter Fracture of vertebra location: thoracic Thoracic vertebra fracture level: T12 Qualified Code(s): S22.080A - Wedge compression fracture of T11-T12 vertebra, initial encounter for closed fracture Plan Will schedule her for T12, L1, L4 kyphoplasty. Patient would like to proceed with the procedure as soon as possible. We will tentatively schedule her for May 12. I ordered an upright x-ray of the lumbar spine for further evaluation of the mildly retropulsed segments. Justification for interventional therapy: ? Patient with average pain >8/10 ? Patient has exhausted conservative therapy with persistently nonhealing fractures at T12, L1 and L4 Scribed for Dr. Cain by Earnest Danielson, medical physics researcher, on 05/01/2023. I, Dr. Cain, have personally reviewed and agree with the information entered by the scribe. Orders: Orders XR lumbar spine 1V Today M48.50XA - Collapsed vertebra, not elsewhere classified, site unspecified, initial encounter for fracture Coding Level of Care Code New Pt Level 4 (66078) Diagnoses Compression fracture of T12 vertebra, initial encounter S22.080A Encounter type: initial encounter Fracture of vertebra location: thoracic Thoracic vertebra fracture level: T12
[2023-05-01 14:23] VITALS: BP 177/91; PULSE 123; RESP 12; O2SAT 93; BMI 21.0
== END 2023-05-01 14:51 | disposition home or self-care (01) ==
PROVIDERS: PCP Internal Medicine; Referring Provider Physician Assistant; Visit Provider Internal Medicine
DX: S22.080A Wedge compression fracture of T11-T12 vertebra, initial encounter for closed fracture (principal)
CPT/HCPCS: 99204

== ENCOUNTER → 2023-05-01 14:03 | Outpatient (BNVA) | payer MEDICARE, MEDICAID, SELFPAY | PROVIDERS: PCP Internal Medicine; Referring Provider Physician Assistant; Visit Provider Internal Medicine | DX: S22.080A Wedge compression fracture of T11-T12 vertebra, initial encounter for closed fracture (principal) | CPT/HCPCS: 99202 ==

== ENCOUNTER 2023-05-02 12:14 | Outpatient (REF) | payer MEDICARE, MEDICAID, SELFPAY | END 2023-05-02 12:15 | disposition home or self-care (01) | LOC: HO.XRAY 12:14 | PROVIDERS: PCP Internal Medicine; Visit Provider Internal Medicine | DX: M48.57XD Collapsed vertebra, not elsewhere classified, lumbosacral region, subsequent encounter for fracture with routine healing (principal) | CPT/HCPCS: 72020 ==

== ENCOUNTER 2023-05-12 06:42 | Day surgery (SDC) | payer MEDICARE, MEDICAID, SELFPAY ==
--- NOTE | 2023-05-11 10:39 | HO.ANESPROP2 ---
HPI - Anesthesia Eval Consult details Narrative: 72yo T12,L1,L4 Kyphoplasty PMFSH Active Problems Active Problems: All Active Problems (Updated 05/02/23 @ 14:50 by Zechariah Cain MD) Compression fracture of vertebrae (Acute) Low back pain (Acute) Dysuria (Acute) Back pain (Acute) Past Medical History Medical History Low back pain Stress incontinence of urine Hx of vertigo History of CVA (cerebrovascular accident) Wears dentures Smoker Family History Family history of problems with anesthesia: No Surgical History Surgical History History of bunionectomy of both great toes Hx of colonoscopy History of Problems with Anesthesia: No Social History Social History Household Members: None Housing: Apartment Are you a primary acute care occupational therapist to a significant other at home: No Do you presently have visiting nurse or other home services: No Alcohol intake: never Patient Tobacco Use Status: Former Tobacco user Tobacco use type: Cigarette Cigarettes Per Day: 12 Meds Allergies Allergy/AdvReac Type Severity Reaction Status Date / Time No Known Allergies Allergy Verified 05/12/23 07:00 [No Known Allergies*] Home Medications Medication Instructions Recorded Confirmed Last Taken Type lisinopril 5 mg tablet 1 tab PO DAILY 10/22/21 05/12/23 Unknown History alendronate 35 mg tablet 35 mg PO QWEEK 05/01/23 05/12/23 Unknown History ibuprofen 600 mg tablet 600 mg PO TID 05/01/23 05/12/23 Unknown History tramadol 50 mg tablet 50 mg PO BID PRN Pain 05/01/23 05/12/23 Unknown History Exam Pertinent Lab Results Pertinent Lab Results: Laboratory Tests 04/17/23 11:55 WBC 7.1 Hgb 14.4 Hct 42.8 Plt Count 289 Sodium 145 Potassium 4.4 Chloride 109 H Carbon Dioxide 27 BUN 11 Creatinine 0.64 Assessment and Plan Assessment Anesthesia Assessment: Chart Reviewed Final Anesthetic Review Family History of Problems with Anesthesia: No History of Problems with Anesthesia: No
[2023-05-12] VITALS (11 sets, daily range): BP systolic 124–147; BP diastolic 74–87; PULSE 88–111; RESP 16–18; TEMP 36.6–37.4; O2SAT 92–97; BMI 25.8
--- NOTE | ~2023-05-12 | FL_ITS ---
EXAMINATION: XR FLUOROSCOPY WITH IMAGES CLINICAL INFORMATION: Kyphoplasty T12, L1, possible L4. COMPARISON: X-ray 05/02/2023 of the lumbar spine TECHNIQUE: Fluoroscopy Supervised By: Dr. Zechariah Cain. Fluoroscopy Time: 1 minute 39 seconds. Cumulative Dose: 98.46 mGy. DAP: 16.3 Gycm2. Images: 3. FINDINGS: Fluoroscopy guidance provided for kyphoplasty procedure. Images demonstrate transpedicular trochars and cement in the L4 vertebral body. FL/FL guidance in OR IMPRESSION: Fluoroscopy guidance for L4 kyphoplasty.
[2023-05-12] MEDS: Lactated Ringers 1,000 ML 100 ML IVCONT (07:12)
[2023-05-12] MEDS: Albuterol Sulfate (0.083%) 2.5 MG/3 ML VIAL.NEB INHALE (07:32)
--- NOTE | 2023-05-12 07:49 | P.CONAN_ITS ---
[facility] Active Problems Active Problems: All Active Problems (Updated 05/02/23 @ 14:50 by Zechariah Cain MD) Compression fracture of vertebrae (Acute) Low back pain (Acute) Dysuria (Acute) Back pain (Acute) Past Medical History Medical History Low back pain Stress incontinence of urine Hx of vertigo History of CVA (cerebrovascular accident) Wears dentures Smoker Family History Family history of problems with anesthesia: No Surgical History Surgical History History of bunionectomy of both great toes Hx of colonoscopy History of Problems with Anesthesia: No Social History Social History Household Members: None Housing: Apartment Are you a primary resident care supervisor to a significant other at home: No Do you presently have visiting nurse or other home services: No Alcohol intake: never Patient Tobacco Use Status: Former Tobacco user Tobacco use type: Cigarette Cigarettes Per Day: 12 Smoked in Last 30 Days: Yes Patient Interested in Nicotine Replacement: No Advance Directives: No Advance Directives Information Provided: Yes Nutrition Risks: No Nutritional Risk Meds Allergies Allergy/AdvReac Type Severity Reaction Status Date / Time No Known Allergies Allergy Verified 05/12/23 07:00 [No Known Allergies*] Active Medications: Current Medications Albuterol Sulfate (Albuterol Sulfate (0.083%) 2.5 Mg/3 Ml Vial.Neb) 2.5 mg INHALE ONCE PRN PRN Reason: Shortness of Breath/Wheezing Last Admin: 05/12/23 07:32 Dose: 2.5 mg Lactated Ringer's (Lr) 1,000 mls @ 100 mls/hr IVCONT .Q10H REKHA Last Admin: 05/12/23 07:12 Dose: 100 mls/hr Home Medications Medication Instructions Recorded Confirmed Last Taken Type lisinopril 5 mg tablet 1 tab PO DAILY 10/22/21 05/12/23 Unknown History alendronate 35 mg tablet 35 mg PO QWEEK 05/01/23 05/12/23 Unknown History ibuprofen 600 mg tablet 600 mg PO TID 05/01/23 05/12/23 Unknown History tramadol 50 mg tablet 50 mg PO BID PRN Pain 05/01/23 05/12/23 Unknown History Exam Height,Weight and Vital Signs: Height 5 ft 3 in Weight 66.134 kg Last Vital Signs Temp 97.9 F 05/12/23 07:20 Pulse 88 05/12/23 07:33 Resp 18 05/12/23 07:33 BP 139/86 05/12/23 07:20 Pulse Ox 97 05/12/23 07:20 O2 Del Method Room Air 05/12/23 07:20 Airway Mallampati Class: II TM Dist: >3cm Neck ROM: Full Denture: Upper and Lower Heart: rrr Lungs: rales ronchi and wheezing throughout Assessment and Plan Final Anesthetic Review Family History of Problems with Anesthesia: No History of Problems with Anesthesia: No NPO: Yes ASA Class: IV Patient Risk: High Procedure Risk: Low Anesthetic Plan Anesthetic Plan: Other
--- NOTE | 2023-05-12 07:57 | PC.NURSE ---
dr. patel at bedside to assess patient per author request. 97%Ra at arrival with smokers cough noted often. patient quit smoking one week ago after smoking 1.5 packs/day since 16. expiratory wheezes thoughout. respiratory treatment given as ordered. lung sounds worsened throughout after treatment, now 91%-94% RA. very wet productive cough of clear sputum.
[2023-05-12 08:51] LABS: MRSA Nasal PCR NEGATIVE (Negative); SA Nasal PCR NEGATIVE (Negative)
--- NOTE | 2023-05-12 09:08 | PC.NURSE ---
dr. ornelas and dr. patel made decision that patient is going to only have local anesthesia for today's procedure due to lungs - see previous note.
--- NOTE | 2023-05-12 09:10 | MHC.SHP ---
Pre-Procedural Eval Section A Date of Service: 05/12/23 The patient is an INPATIENT: No Changes since office visit: Yes Patient answered all questions The History & Physical has been completed within 30 days and I have reviewed it.: No Section B Chief Complaint: Collapsed vertebra, not elsewhere classified, site Relevant Family History (Specify if Yes): No Relevant Social History: None Present Medications: see Short Stay Collaborative assessment Medical History: No relevant PMH History of Previous Operations: No relevant previous surgery Allergies: Allergies Allergy/AdvReac Type Severity Reaction Status Date / Time No Known Allergies Allergy Verified 05/12/23 07:00 [No Known Allergies*] Review of Systems Sugical H&P ROS: Negative: Constitution, Cardiovascular and Respiratory Exam Surgical H&P Exam: Normal: HEENT, Normal: Heart and Normal: Lungs Plan Diagnosis/Plan: Change I have reviewed the history and physical and performed a pertinent physical examination on my patient. No changes have occurred unless specified. Patient deemed not optimized for anesthesia by the anesthesiologist. Patient is amenable to proceeding with the procedure under local anesthesia only. Given the lack of pain on exam today in the midback region, we will proceed with L4 kyphoplasty. Time Spent With Patient Time: Total time managing care of this patient today ____ minutes.
--- NOTE | 2023-05-12 10:42 | PM.OP ---
Brief Operative Note Date of Service: 05/12/23 Pre-op diagnosis: L4 osteoporotic vertebral compression fracture Post-op diagnosis: same Procedure: L4 kyphoplasty Surgeon: Zechariah Cain MD Anesthesia: local Was an Manufacturing Quality Engineer used for this Procedure?: No Estimated blood loss (mL): 20 Pathology: none sent Condition: stable Disposition: PACU
--- NOTE | 2023-05-12 10:43 | P.OP_ITS ---
Operative Note Operative Note Date of Service: 05/12/23 Narrative: Kyphon Balloon Kyphoplasty with Insertion of HV-R Bone Cement, L4 Vertebral Body The patient was brought to the operating room and general anesthesia with endotracheal intubation was induced. The patient was positioned prone on the table. The back was prepped and draped. Two image intensifiers (C-arms) were brought into the AP and lateral positions and the L4 pedicles were identified and marked with a skin marker. A transpedicular approach to the vertebral body was deemed appropriate. A spinal needle was advanced along the expected course of the introducer up to the pedicle and the tract was anesthetized with lidocaine 1% mixed with 0.25% bupivacaine with epinephrine. A stab incision was made 5 cm lateral to the pedicle with a 15 blade. A 10-gauge bevel introducer was advanced through the L4 pedicle to the junction of the pedicle and vertebral body on the left side first. Positioning was confirmed on the AP and lateral plane at regular intervals to ensure bevel position within the cortical boundaries of the pedicle until the body of the vertebra was accessed. Following satisfactory placement of the osteointroducer, the bevel tip was removed, leaving the cannula in place, positioned approximately 1 cm past the posterior vertebral body wall. Through the cannula, a drill was advanced into the vertebral body under fluoroscopic guidance toward the anterior cortex to create a channel, stopping approximately 3-5 mm posterior to the anterior cortical wall in the lateral view and approaching the ipsilateral edge of the spinous process in the AP view. The anterior cortex was probed with the guide pin to ensure no perforations in the anterior cortex. A curette was then used to create a cavity in the mid vertebral body position. After completing the entry into the vertebral body, a 15 mm inflatable bone tamp was inserted through the cannula and advanced under fluoroscopic guidance into the vertebral body near the anterior cortex. The radiopaque marker bands on the bone tamp were ident ified using AP and lateral images and confirmed to be within the anterior 2/3rd of the body. . The above sequence of instrument placement was then repeated on the right side. Once both bone tamps were in position, they were inflated sequentially in increments of 0.25 to 0.5 cc of contrast, with careful attention being paid to the inflation pressures and balloon position. The inflation was monitored with AP and lateral imaging. The final balloon volume was 1.5 cc on the left and 2 cc on the right side. Maximum pressure applied on either side was approximately 250-300 psi. There was no breach of the lateral wall or anterior cortex of the vertebral body. Direct reduction of the fracture was achieved and end plate movement was noted. Under fluoroscopic imaging, and the use of the bone void fillers, internal fixation was achieved through a low-pressure injection of appropriately cured KYPHON HV-R methylmethacrylate bone cement. The cavity was filled with a total volume of 2.4 cc on the left side and 4.5 cc on the right side. No vascular, disc or spinal extravasation of the cement was noted. Once the bone cement had hardened, the bevel tip was reinserted into each of the cannulas to clear it and they were were then removed. Post-procedure, the incisions were closed with 2 silk sutures. The patient was kept in the prone position for approximately 10 minutes post cement injection. She was then turned supine and brought to the PACU where she reported minimal back pain. She was able to move both her lower extremities at this time. She was subsequently discharged with postprocedure and follow-up instructions. Estimated blood loss was rougly 20 mL.
== END 2023-05-12 14:11 | disposition home or self-care (01) ==
PROVIDERS: Registered Nurse Emergency; PCP Internal Medicine; Visit Provider Internal Medicine
PROC: (CPT 22514; principal; 2023-05-12 08:30)
DX: M80.08XA Age-related osteoporosis with current pathological fracture, vertebra(e), initial encounter for fracture (principal); M54.50 Low back pain, unspecified; Z79.899 Other long term (current) drug therapy; Z79.83 Long term (current) use of bisphosphonates; N39.3 Stress incontinence (female) (male); Z86.73 Personal history of transient ischemic attack (TIA), and cerebral infarction without residual deficits; Z97.2 Presence of dental prosthetic device (complete) (partial); F17.210 Nicotine dependence, cigarettes, uncomplicated
CPT/HCPCS: 22514; 87640; 87641; 94640; C1713; J0131; J0690; J2250; J2704; J2795; Q9967

== ENCOUNTER 2023-05-19 10:47 | Outpatient (AMB) | payer MEDICARE, MEDICAID, SELFPAY ==
[2023-05-19 11:01] VITALS: BP 167/76; PULSE 94; RESP 18; O2SAT 97
--- NOTE | 2023-05-19 11:01 | MHC.OFFVIS ---
Intake Vital Signs 05/19/23 11:01 Weight 147 lb 8 oz BP 167/76 H Blood Pressure Location Lt brachial Position Sitting Respiration 18 Pulse 94 Pulse Source Pulse Oximeter Pulse Oximetry (%) 97 Oxygen Delivery Method Room Air Intake Visit Reasons: S/p T12, L1, L4 Kyphoplasty 05/12/23/confirmed Allergies No Known Allergies [No Known Allergies*] Allergy (Verified 05/19/23 11:00) HPI S/p T12, L1, L4 Kyphoplasty 05/12/23/confirmed HPI Details 72-year-old female who presents today to the office for a follow-up status post L4 kyphoplasty. The patient reports 90% relief following the procedure. She has intermittent mild pain from the procedure, which is manageable. She is taking Fosamax and multi-vitamin supplements for bone strength. She is not smoking currently. Past Procedure: 05/12/23: Balloon Kyphoplasty with Insertion of HV-R Bone Cement, L4 Vertebral Body: 90% relief. PFSH Medical History Low back pain Stress incontinence of urine Hx of vertigo History of CVA (cerebrovascular accident) Wears dentures Smoker Surgical History History of bunionectomy of both great toes Hx of colonoscopy Social History Household Members: None Housing: Apartment Are you a primary wound care center consultant to a significant other at home: No Do you presently have visiting nurse or other home services: No Alcohol intake: never Patient Tobacco Use Status: Former Tobacco user Tobacco use type: Cigarette Cigarettes Per Day: 12 Review of Systems Const All systems reviewed & are unremarkable except as noted in HPI and below Physical Exam Vital Signs: Last Vital Signs Pulse 94 05/19/23 11:01 Resp 18 05/19/23 11:01 BP 167/76 H 05/19/23 11:01 Pulse Ox 97 05/19/23 11:01 Oxygen Delivery Method Room Air 05/19/23 11:01 General: Appears afebrile. Alert and oriented. Mood and affect appropriate. Follows and participates in conversation appropriately. Respiratory effort is unlabored. Able to transition from sit to stand unassisted. Ambulates with bilaterally normal heel strike and toe off. Incision sites are clean dry and intact. Sutures removed. Results Reviewed Results Reviewed: No imaging is available for review. Assessment & Plan Assessment & Plan (1) Compression fracture of vertebrae: Code(s): M48.50XA - Collapsed vertebra, not elsewhere classified, site unspecified, initial encounter for fracture Qualifiers: Encounter type: initial encounter Fracture of vertebra location: thoracic Thoracic vertebra fracture level: T12 Qualified Code(s): S22.080A - Wedge compression fracture of T11-T12 vertebra, initial encounter for closed fracture Plan The patient will continue to take Fosamax and multivitamin supplements for bone strength. I encouraged her to refrain from heavy lifting and strenuous activity. Follow-up as needed. Scribed for Dr. Cain by Earnest Danielson, certified ophthalmic medical technician, on 05/19/2022. I, Dr. Cain, have personally reviewed and agree with the information entered by the scribe. Coding Level of Care Code Est Pt Level 3 (96999) Diagnoses Compression fracture of T12 vertebra, initial encounter S22.080A Encounter type: initial encounter Fracture of vertebra location: thoracic Thoracic vertebra fracture level: T12
== END 2023-05-19 11:14 | disposition home or self-care (01) ==
PROVIDERS: PCP Internal Medicine; Visit Provider Internal Medicine
DX: S22.080A Wedge compression fracture of T11-T12 vertebra, initial encounter for closed fracture (principal)
CPT/HCPCS: 99024

== ENCOUNTER → 2023-05-19 10:47 | Outpatient (BNVA) | payer MEDICARE, MEDICAID, SELFPAY | PROVIDERS: PCP Internal Medicine; Visit Provider Internal Medicine | DX: S22.080D Wedge compression fracture of T11-T12 vertebra, subsequent encounter for fracture with routine healing (principal) | CPT/HCPCS: 99212 ==

== ENCOUNTER 2023-08-15 12:34 | Emergency (ER) | payer MEDICARE, MEDICAID, SELFPAY ==
--- NOTE | ~2023-08-15 | CT_ITS ---
EXAMINATION: CT brain and CT cervical spine without contrast. CLINICAL INDICATIONS: Fall, pain. COMPARISON: CT brain 01/31/2021. TECHNIQUE: 5 mm thin axial and reformatted 2 mm thin sagittal and coronal images of brain were obtained. Subsequently axial 3 mm thin and reformatted 2 mm thin sagittal and coronal images of cervical spine were obtained. DLP 1055. This CT examination was performed using dose optimization technique as appropriate, variously including the following: Automated exposure control Adjustment of MA and/or KV according to patient size(this includes techniques or standardized protocols for targeted exams where dose is matched to indication/reason for exam; extremities or head. Use of iterative reconstruction techniques. FINDINGS: BRAIN: There is no acute intra-axial, extra-axial bleed, masses or midline shift. There is no acute infarction in evolution. There is no edema. Fuentes to white matter differentiation is maintained normal. The lateral ventricles are symmetrical in size and configuration without enlargement. Bone windows reveal no calvarial fracture. There is a left frontal lobe scalp hematoma. Bilateral paranasal sinuses and mastoid air cells are well-aerated. CERVICAL SPINE: On sagittal reconstructed images there is maintained cervical lordosis lordosis. The vertebral heights, alignment and disc heights are normal. There is no visible acute fracture, dislocation or subluxation seen. The craniovertebral junction and C1-C2 alignment is normal. The prevertebral and paravertebral soft tissues are normal. The lung apices are clear. Mild degenerative changes left TM joint. CT/CT cervical spine wo IV con IMPRESSION: Left frontal scalp hematoma without underlying calvarial fracture. No acute intracranial process seen. No acute fracture, dislocation or subluxation in cervical spine.
--- NOTE | ~2023-08-15 | XR_ITS ---
EXAMINATION: XR SHOULDER, LEFT CLINICAL INFORMATION: Pain, injury COMPARISON: None available. TECHNIQUE: Single AP internal rotation view. FINDINGS: There is an oblique fracture of the proximal shaft of the humerus with displacement and override of the distal fracture fragment. There is also a nondisplaced fracture extending into the humeral head. The acromioclavicular joint is within normal limits. This projections do not allow for evaluation of the glenohumeral joint. XR/XR shoulder LT 1V IMPRESSION: Oblique fracture of the proximal shaft of the humerus with displacement and override of the distal fracture fragment.
[2023-08-15 12:45] VITALS: BP 159/89; PULSE 130; O2SAT 96
--- NOTE | 2023-08-15 12:50 | ED_ITS ---
HPI - General Adult General Chief complaint: Fall Stated complaint: TRIP/FALL,L HUMERUS PAIN/HEAD LAC PER EMS Time Seen by Provider: 08/15/23 12:49 Source: patient and EMS Mode of arrival: EMS Limitations: no limitations History of Present Illness HPI narrative: Patient is a 72 year old assigned female at with a history of HTN, osteoporosis, and tobacco use presenting to the emergency department today with left upper arm pain after a fall. Patient states that she was going into islam, lost her footing, and fell. Patient states that she attempted to catch herself and now her arm hurts. Patient states that she hit her head but had no loss of consciousness. Patient denies any dizziness, lightheadedness, abdominal pain, nausea, vomiting, fever, chills, blurry vision, double vision, loss of vision, chest pain, difficulty breathing, shortness of breath, back pain, night sweats, pain with urination, increased urinary frequency, increased urinary urgency, blood in her urine or stool, syncope or a near syncopal episode, bowel incontinence, bladder incontinence, bowel retention, bladder retention, or any other complaints at this time. Onset (ago): minute(s) Location: head, left and upper extremity Severity: moderate Severity scale (1-10): 5 Relieving factors: none Exacerbating factors: movement Associated symptoms: denies other symptoms Treatments prior to arrival: none Related Data Home Medications Medication Instructions Recorded Confirmed lisinopril 5 mg tablet 1 tab PO DAILY 10/22/21 05/12/23 alendronate 35 mg tablet 35 mg PO QWEEK 05/01/23 05/12/23 ibuprofen 600 mg tablet 600 mg PO TID 05/01/23 05/12/23 tramadol 50 mg tablet 50 mg PO BID PRN Pain 05/01/23 05/12/23 Allergies Allergy/AdvReac Type Severity Reaction Status Date / Time No Known Allergies Allergy Verified 05/19/23 11:00 [No Known Allergies*] Review of Systems Constitutional: Constitutional: Reports no additional constitutional complaints, Denies chills, Denies fever(s), Reports headache(s) and Denies night sweats Eyes: Eyes: Reports no additional eye complaints, Denies blurry vision, Denies change in vision, Denies diplopia, Denies eye discharge, Denies loss of vision and Denies eye pain ENT: Denies dizziness and Reports headache(s) Cardiovascular: Cardiovascular: Reports no additional cardiovascular complaints, Denies chest pain, Denies lightheadedness, Denies Loss of Consciousness and Denies dyspnea Respiratory: Respiratory: Reports no additional respiratory complaints and Denies dyspnea Gastrointestinal: Gastrointestinal: Reports no additional gastrointestinal complaints, Denies abdominal pain, Denies melena, Denies hematochezia, Denies change in bowel habits and Denies change in stool character Genitourinary: Genitourinary: Denies hematuria, Denies urinary frequency, Denies dysuria, Denies urinary incontinence, Denies urinary hesitancy and Denies urinary urgency Musculoskeletal: Musculoskeletal: Reports no additional musculoskeletal complaints, Denies numbness and Denies tingling Comments: left shoulder pain Neurologic: Denies dizziness, Reports headache(s), Denies loss of vision, Denies numbness and Denies tingling Psychiatric: Psychiatric: Reports no additional psychiatric complaints Endocrine: Endocrine: Reports no additional endocrine complaints Hematologic/Lymphatic: Hematologic/Lymphatic: Reports no additional hematologic/lymphatic complaints Allergic/Immunologic: Allergic/Immunologic: Reports no additional allergic/immunologic complaints [facility] Past Medical History Attestation statement: The following information was validated with the patient. Source: old records reviewed and nursing notes reviewed Medical History Low back pain Stress incontinence of urine Hx of vertigo History of CVA (cerebrovascular accident) Wears dentures Smoker Surgical History History of bunionectomy of both great toes Hx of colonoscopy Social History Social History Household Members: None Housing: Apartment Are you a primary pharmacist critical care to a significant other at home: No Do you presently have visiting nurse or other home services: No Alcohol intake: former Patient Tobacco Use Status: Former Tobacco user Tobacco use type: Cigarette Cigarettes Per Day: 12 Smoked in Last 30 Days: Yes Use of substances other than those prescribed or required for medical reasons: No Advance Directives: No Advance Directives Information Provided: Yes Physical Exam ED Vital Signs: Vital Signs - 24 hr 08/15/23 12:52 Temperature 98.3 F Pulse Rate 119 H Respiratory Rate 18 Blood Pressure 144/72 H Pulse Oximetry 94 Oxygen Delivery Method Room Air BMI result Body Mass Index 28.0 Const General: cooperative, no acute distress, alert and awake Nutritional Appearance: well nourished Orientation/consciousness: patient oriented x3 Limitations: no limitations HENMT Head: Yes normal to inspection and Yes atraumatic Ears: hearing grossly normal bilaterally and external ears normal General nose exam: Normal external nose present, no nasal discharge noted and no epistaxis Face and sinus: Yes normal facial exam, No abrasion and No laceration Mouth: Normal oral and palatal mucosa present, no drooling and no muffled voice Eyes General: appearance normal, both eyes and all related structures Periorbital: periorbital findings normal Eyelids: Yes eyelids normal Conjunctivae: conjunctivae normal Pupils: Equal, round and reactive pupils present EOM: EOMs intact bilaterally Neck Neck: Yes normal visual inspection, Yes full ROM and Yes no lymphadenopathy Chest Chest palpation & inspection: normal inspection of the chest Resp Effort & Inspection: normal respiratory effort and able to speak in complete sentences GI Inspection: Yes normal to inspection Neuro General: patient oriented x3 and moves all extremities Cranial nerves: Yes Equal, round and reactive pupils present Cognition (Neuro): normal cognition Motor exam (neuro): 5/5 motor strength present throughout Sensory Exam: Normal double simultaneous stimulation for sensation Coordination: [id number] test normal Extrem Other: limited left shoulder / upper arm ROM secondary to pain General: Yes normal to inspection and Yes capillary refill normal Psych Appearance: grossly normal Mental Status: mental status grossly normal Affect: normal affect Attitude: cooperative Thought process: Normal thought process present Thought content: Normal thought content present Insight: Good insight present (Psych) Procedures Orthopedic Splinting/Casting Injury #1: Side: left Upper Extremity Injury Location: shoulder Upper Extremity Immobilizer: sling/shoulder immobilizer Medical Decision Making Medical Decision Making MDM Narrative: Patient is a 72 year old assigned female at with a history of HTN, osteoporosis, and tobacco use presenting to the emergency department today with left arm pain after a trip and fall. Patient's physical exam was as noted in the physical exam portion of this note. Patient's head and c-spine CTs showed no acute process. Patient's left shoulder x-ray showed an oblique fracture of the proximal shaft of the humerus with displacement and override of the distal fracture fragment. I spoke with the orthopedics team who recommended sling and following up outpatient in the office. I explained my physical exam findings as well as all test results to the patient and the patient's daughter. I answered all questions asked by the patient and the patient's daughter. Patient's left arm was placed in a sling, without incident. Patient's PMS was intact prior to and after sling placement. I stressed the importance of the patient taking her medication as prescribed. I stressed the importance of the patient following up with her primary care provider and an orthopeidc provider. I stressed the importance of the patient returning to the emergency department immediately if her symptoms were to worsen or if she were to develop any dizziness, shortness of breath, difficulty breathing, chest pain, blurry vision, loss of vision, nausea, vomiting, abdominal pain, fever, chills, back pain, or any other complaints. Patient and the patient's daughter verbalized agreement and understanding with this treatment plan and discharge. Differential Diagnosis Differential Diagnoses: The differential diagnosis associated with the presentation includes Humerus fracture Trip and fall Mechanical fall Admission/Observation Consideration of admission/observation: Escalation of care including admission/observation considered Patient would have been admitted to the hospital had her work up had any findings where hospital admission was appropriate and her clinical presentation warranted hospital admission. Consult Healthcare Provider Management of the patient was discussed with: Fishing Game Warden (spoke to the orthopedics team as noted in the MDM Rationale portion of this note.) Independent Interpretation I performed an independent interpretation of an: Plain X-Ray and CT Scan Interpretation: My interpretation is in agreement with the radiologist's impression of these imaging studies. EXAMINATION: XR SHOULDER, LEFT CLINICAL INFORMATION: Pain, injury COMPARISON: None available. TECHNIQUE: Single AP internal rotation view. FINDINGS: There is an oblique fracture of the proximal shaft of the humerus with displacement and override of the distal fracture fragment. There is also a nondisplaced fracture extending into the humeral head. The acromioclavicular joint is within normal limits. This projections do not allow for evaluation of the glenohumeral joint. XR/XR shoulder LT 1V IMPRESSION: Oblique fracture of the proximal shaft of the humerus with displacement and override of the distal fracture fragment. Dictated By: Lucretia Matta MD Signed By: Electronically signed by Lucretia Matta MD 08/15/23 1459 EXAMINATION: CT brain and CT cervical spine without contrast. CLINICAL INDICATIONS: Fall, pain. COMPARISON: CT brain 01/31/2021. TECHNIQUE: 5 mm thin axial and reformatted 2 mm thin sagittal and coronal images of brain were obtained. Subsequently axial 3 mm thin and reformatted 2 mm thin sagittal and coronal images of cervical spine were obtained. DLP 1055. This CT examination was performed using dose optimization technique as appropriate, variously including the following: Automated exposure control Adjustment of MA and/or KV according to patient size(this includes techniques or standardized protocols for targeted exams where dose is matched to indication/reason for exam; extremities or head. Use of iterative reconstruction techniques. FINDINGS: BRAIN: There is no acute intra-axial, extra-axial bleed, masses or midline shift. There is no acute infarction in evolution. There is no edema. Fuentes to white matter differentiation is maintained normal. The lateral ventricles are symmetrical in size and configuration without enlargement. Bone windows reveal no calvarial fracture. There is a left frontal lobe scalp hematoma. Bilateral paranasal sinuses and mastoid air cells are well-aerated. CERVICAL SPINE: On sagittal reconstructed images there is maintained cervical lordosis lordosis. The vertebral heights, alignment and disc heights are normal. There is no visible acute fracture, dislocation or subluxation seen. The craniovertebral junction and C1-C2 alignment is normal. The prevertebral and paravertebral soft tissues are normal. The lung apices are clear. Mild degenerative changes left TM joint. CT/CT head/brain wo IV con IMPRESSION: Left frontal scalp hematoma without underlying calvarial fracture. No acute intracranial process seen. No acute fracture, dislocation or subluxation in cervical spine. Dictated By: Derick Matute MD Signed By: Electronically signed by Derick Matute MD 08/15/23 8198 Radiology Impression Discussion of test interpretation with radiology: I have reviewed the radiologist's reading. Independent Historian Clinical information obtained from an independent historian. History obtained from or confirmed by: EMS (EMS provided additional history and confirmed the history provided by the patient) and Other (Patient's daughter provided additional history and confirmed the history provided by the patient) Critical Care Time Critical Care Time Critical Care Time: Yes Total Critical Care Time: 97 Attestation: I spent 97 minutes of Critical Care Time with this patient. This does not include time spent on separately reported billable procedures. Discharge Plan Discharge Clinical Impression: Fall, Fracture, humerus Patient Disposition: Home, Self-Care Instructions: Arm Fracture in Adults (ED), How to Use a Sling (ED), Fall Prevention for Older Adults (ED) Additional Instructions: Wear your sling. Follow up with your primary care provider and the orthopedic provider. Return to the emergency department immediately if your symptoms worsen or if you develop any dizziness, shortness of breath, difficulty breathing, chest pain, blurry vision, loss of vision, nausea, vomiting, abdominal pain, fever, chills, back pain, or any other complaints. Prescriptions: No Action lisinopril 5 mg tablet 1 tab PO DAILY alendronate 35 mg tablet 35 mg PO QWEEK tramadol 50 mg tablet 50 mg PO BID PRN (Reason: Pain) ibuprofen 600 mg tablet 600 mg PO TID Referrals: [facility] [Provider Group] (Call to establish and follow up with an orthopedic provider.) Sb Foster MD [Primary Care Provider] - Print Language: Hong Konger
[2023-08-15 12:52] VITALS: BP 144/72; PULSE 119; RESP 18; TEMP 36.8; O2SAT 94; BMI 28.0
[2023-08-16 10:04] VITALS: BP 144/72; PULSE 119; RESP 18; TEMP 36.8; O2SAT 94
== END 2023-08-16 10:05 | disposition home or self-care (01) ==
PROVIDERS: Emergency Provider Emergency Medicine; PCP Internal Medicine
DX: S42.332A Displaced oblique fracture of shaft of humerus, left arm, initial encounter for closed fracture (principal); I10 Essential (primary) hypertension; Z86.73 Personal history of transient ischemic attack (TIA), and cerebral infarction without residual deficits; W01.0XXA Fall on same level from slipping, tripping and stumbling without subsequent striking against object, initial encounter; Y93.9 Activity, unspecified; Y92.22 Religious institution as the place of occurrence of the external cause; Y99.9 Unspecified external cause status
CPT/HCPCS: 70450; 72125; 73020; 99284

== ENCOUNTER 2023-08-21 09:42 | Outpatient (REF) | payer MEDICARE, MEDICAID, SELFPAY ==
--- NOTE | ~2023-08-21 | XR_ITS ---
EXAMINATION: XR SHOULDER, LEFT CLINICAL INFORMATION: Left shoulder pain. COMPARISON: Left shoulder radiographs dated 08/15/2023. TECHNIQUE: AP view of the left shoulder. FINDINGS: Redemonstration of a comminuted, displaced proximal left humeral fracture. Dominant oblique fracture through the proximal metaphysis with lateral displacement measuring up to 3.6 cm in ML dimension as well as proximal displacement measuring up to 4.6 cm in craniocaudal dimension. There is overlap of the fracture fragments. Additional, nondisplaced fracture through the greater tuberosity which is partially visualized on the AP image. No dislocation. 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 No concerning lytic or blastic osseous lesion. XR/XR shoulder LT 1V IMPRESSION: 1. Comminuted, displaced proximal left humeral fracture with overlap of the fracture fragments. No significant change in anatomic alignment. 2. Additional, nondisplaced fracture through the greater tuberosity.
== END 2023-08-21 09:43 | disposition home or self-care (01) ==
LOC: HO.HOSX 09:42
PROVIDERS: PCP Internal Medicine; Visit Provider Physician Assistant
DX: M25.512 Pain in left shoulder (principal); S42.302A Unspecified fracture of shaft of humerus, left arm, initial encounter for closed fracture; W18.30XA Fall on same level, unspecified, initial encounter; Y93.9 Activity, unspecified; Y92.9 Unspecified place or not applicable; Y99.9 Unspecified external cause status
CPT/HCPCS: 73020; 99212

== ENCOUNTER 2023-08-21 09:42 | Outpatient (AMB) | payer MEDICARE, MEDICAID, SELFPAY ==
--- NOTE | 2023-08-21 09:44 | A.OFFVIS_ITS ---
Intake Vital Signs 08/21/23 09:45 Height 5 ft 3 in Weight 158 lb BMI 28.0 Intake Visit Reasons: Newprop-FC LT, proximal shaft of the humerus Intake Note: Meryl is a 72 year old female who presents today for an evaluation of left humerus fracture, DOI 08/15/23. Patient reports that she lost her foot and fell. She presented to [facility] ED the same day where xrays were taken and placed in a sling. [employer] System Administrator Required: No Information Interpreted: non-clinical & clinical Accompanied by: Daughter Allergies No Known Allergies [No Known Allergies*] Allergy (Verified 08/21/23 09:44) HPI Newprop-FC LT, proximal shaft of the humerus HPI Details 72-year-old female who presents to the [facility] today for evaluation of left humerus injury after losing her balance and sustained a fall, 08/15/23. She was seen at ED the same day where x-rays were performed and she was placed in a sling. She currently states she has pain and swelling in her shoulder. PFS Medical History Low back pain Stress incontinence of urine Hx of vertigo History of CVA (cerebrovascular accident) Wears dentures Smoker Surgical History History of bunionectomy of both great toes Hx of colonoscopy Social History Household Members: None Housing: Apartment Are you a primary care services manager to a significant other at home: No Do you presently have visiting nurse or other home services: No Alcohol intake: former Patient Tobacco Use Status: Former Tobacco user Tobacco use type: Cigarette Cigarettes Per Day: 12 Review of Systems Const All systems reviewed & are unremarkable except as noted in HPI and below Physical Exam Vital Signs: BMI result Body Mass Index 28.0 Const General: cooperative and no acute distress Orientation/consciousness: patient oriented x3 Resp Effort & Inspection: normal respiratory effort and able to speak in complete sentences Cardio Peripheral pulses: Peripheral pulses 2+ throughout Neuro General: patient oriented x3 Extrem Other: Left shoulder: Normal to inspection. Diffuse Swelling and tenderness over the proximal humerus which extends down the arm. Anterior deltoid sensation intact. Elbow and wrist ROM intact. NVI. Office Procedures Fracture Care Fracture Billing Code: Fracture Billing Code Results Reviewed Results Reviewed: Xrays were obtained in the office today and personally reviewed by me of the left shoulder show humeral shaft fx with deltoid atony Assessment & Plan Assessment & Plan (1) Fracture of humeral shaft, left, closed: Code(s): S42.302A - Unspecified fracture of shaft of humerus, left arm, initial encounter for closed fracture Plan Images reviewed with Dr. Manning in the office today. The plan is to continue conservative management treated with a sling. She can remove the sling for resting to allow her arm to dangle. I did show her some exercises to work on ROM of her elbow and ways to dress and put her sling on. She was fit for a new sling in the offce today as the ED gave her a sling too big. She will see me back in 6 weeks with new x-rays, sooner if needed. Patient Instructions: Scribed for Otto Farrell PA-C, by Can Christina medical billing representative, on 08/21/2023 at 9:45 AM EST. I, Otto Farrell PA-C, have personally reviewed and agree with the information entered by the scribe. Coding Level of Care Code New Pt Level 3 (65700) Diagnoses Fracture of humeral shaft, left, closed S42.302A CPT Codes Fracture Care - Fracture Billing Code: Fracture Billing Code ([id number])
[2023-08-21 09:45] VITALS: BMI 28.0
== END 2023-08-21 11:26 | disposition home or self-care (01) ==
PROVIDERS: PCP Internal Medicine; Visit Provider Physician Assistant
DX: S42.302A Unspecified fracture of shaft of humerus, left arm, initial encounter for closed fracture (principal)
CPT/HCPCS: 99213

== ENCOUNTER 2023-08-24 10:21 | Outpatient (AMB) | payer MEDICARE, MEDICAID, SELFPAY ==
--- NOTE | 2023-08-24 10:22 | A.OFFVIS_ITS ---
Intake Vital Signs 08/24/23 11:12 Height 5 ft 3 in Weight 158 lb BMI 28.0 Intake Visit Reasons: OV - left humerus fracture DOI 08/15/23 Intake Note: Meryl a 72 year old female presents today for a follow up s/p left humerus fracture DOI 08/15/23. Patient reports that she is concerned of her pain, swelling. her daught states that she removed the sling and patient woke up yesterday in a lot of pain and swelling. She states not sleeping at night due ot pain. Current pain level is 8 out of 10. Allergies No Known Allergies [No Known Allergies*] Allergy (Verified 08/24/23 11:12) HPI OV - left humerus fracture DOI 08/15/23 HPI Details 72-year-old female who returns to the [facility] today with her daughter for a follow-up of left humerus fracture, 08/15/23. Her daughter reports she removed the sling and the patient woke up yesterday in a lot of pain and swelling. She states she has pain, swelling in her shoulder which makes her unable to sleep at night. She rates the pain as 8 on the scale of 0-10. PFSH Medical History Low back pain Stress incontinence of urine Hx of vertigo History of CVA (cerebrovascular accident) Wears dentures Smoker Surgical History History of bunionectomy of both great toes Hx of colonoscopy Social History Household Members: None Housing: Apartment Are you a primary primary care sales representative to a significant other at home: No Do you presently have visiting nurse or other home services: No Alcohol intake: former Patient Tobacco Use Status: Former Tobacco user Tobacco use type: Cigarette Cigarettes Per Day: 12 Review of Systems Const All systems reviewed & are unremarkable except as noted in HPI and below Physical Exam Vital Signs: BMI result Body Mass Index 28.0 Const General: cooperative and no acute distress Orientation/consciousness: patient oriented x3 Resp Effort & Inspection: normal respiratory effort and able to speak in complete sentences Cardio Peripheral pulses: Peripheral pulses 2+ throughout Neuro General: patient oriented x3 Extrem Other: Left shoulder: Normal to inspection. Diffuse Swelling and tenderness over the proximal humerus which extends down the arm. Anterior deltoid sensation intact. Elbow and wrist ROM intact. NVI. Results Reviewed Results Reviewed: Xrays were obtained in the office today and personally reviewed by me of the left shoulder show humeral shaft fx with deltoid atony Assessment & Plan Assessment & Plan (1) Fracture of humeral shaft, left, closed: Code(s): S42.302A - Unspecified fracture of shaft of humerus, left arm, initial encounter for closed fracture Qualifiers: Encounter type: subsequent encounter Fracture morphology: oblique Fracture alignment: displaced Plan Reassure was given that the fracture remains stable. There is no evidence of further displacement and the swelling is normal given the extent of her fracture. I would expect this to resolve in upcoming weeks as she continues to elevate and continues on hand motion. If symptoms persist or worsens, patient will contact the office, otherwise follow-up as previously discussed on October 01 with x-rays. Orders: Orders XR humerus LT Today S42.309A - Unspecified fracture of shaft of humerus, unspecified arm, initial encounter for closed fracture Patient Instructions: Scribed for Otto Farrell PA-C, by Can Christina medical dosimetrist, on 08/24/2023 at 10:45 AM EST. I, Otto Farrell PA-C, have personally reviewed and agree with the information entered by the scribe. Coding Level of Care Code Global (09502) Diagnoses Fracture of humeral shaft, left, closed S42.302A Encounter type: subsequent encounter Fracture morphology: oblique Fracture alignment: displaced
[2023-08-24 11:12] VITALS: BMI 28.0
== END 2023-08-24 11:38 | disposition home or self-care (01) ==
PROVIDERS: PCP Internal Medicine; Visit Provider Physician Assistant
DX: S42.302A Unspecified fracture of shaft of humerus, left arm, initial encounter for closed fracture (principal)
CPT/HCPCS: 99213

== ENCOUNTER → 2023-08-24 10:21 | Outpatient (BNVA) | payer MEDICARE, MEDICAID, SELFPAY | PROVIDERS: PCP Internal Medicine; Visit Provider Physician Assistant | DX: S42.302D Unspecified fracture of shaft of humerus, left arm, subsequent encounter for fracture with routine healing (principal) | CPT/HCPCS: 99212 ==

== ENCOUNTER 2023-08-25 06:18 | Outpatient (REF) | payer MEDICARE, MEDICAID, SELFPAY ==
--- NOTE | ~2023-08-25 | XR_ITS ---
EXAMINATION: XR HUMERUS, LEFT CLINICAL INFORMATION: Unspecified fracture of the shaft of the humerus unspecified arm. COMPARISON: 08/29/2023, 08/15/2023. TECHNIQUE: AP and lateral views of the left humerus. FINDINGS: The bones are diffusely demineralized. Moderate degenerative changes in the acromioclavicular joint. Redemonstration of an oblique fracture of the proximal shaft of the humerus with displacement and override of the distal fracture fragment. Redemonstration of a nondisplaced fracture extending into the humeral head. The glenohumeral joint is difficult to evaluate on the views provided. XR/XR humerus LT IMPRESSION: Redemonstration of displaced fracture of the proximal shaft of the humerus with override of the distal fracture fragment. Redemonstration of nondisplaced fracture extending into the humeral head.
== END 2023-08-25 06:19 | disposition home or self-care (01) ==
LOC: HO.HOSX 06:18
PROVIDERS: Visit Provider Physician Assistant
DX: S42.302A Unspecified fracture of shaft of humerus, left arm, initial encounter for closed fracture (principal)
CPT/HCPCS: 73060

== ENCOUNTER 2023-10-02 12:24 | Outpatient (AMB) | payer MEDICARE, MEDICAID, SELFPAY ==
--- NOTE | 2023-10-02 12:32 | MHC.OFFVIS ---
Vital Signs 10/02/23 12:39 Height 5 ft 3 in Weight 158 lb BMI 28.0 Intake Visit Reasons: OV-f/u Left humeral shaft fx w xrays Intake Note: Meryl a 72 year old female presents today for a follow up s/p left humerus fracture DOI 08/15/23. Xrays updated. Patient reports she is doing well, states improvement in her pain since her last visit. States a little discomfort that usually presents in the mornings. Allergies No Known Allergies [No Known Allergies*] Allergy (Verified 10/02/23 12:40) HPI HPI OV-f/u Left humeral shaft fx w xrays: Details: 72-year-old female who returns to the office today for a follow-up of left humeral shaft fracture, 08/15/23. She states she has improvement in her pain however she does experiences mild discomfort in her arm that is aggravated in the mornings. She has no other concerns today. PFSH Medical History Low back pain Stress incontinence of urine Hx of vertigo History of CVA (cerebrovascular accident) Wears dentures Smoker Surgical History History of bunionectomy of both great toes Hx of colonoscopy Social History Household Members: None Housing: Apartment Are you a primary respiratory care specialist to a significant other at home: No Do you presently have visiting nurse or other home services: No Alcohol intake: former Patient Tobacco Use Status: Former Tobacco user Tobacco use type: Cigarette Cigarettes Per Day: 12 Review of Systems Const All systems reviewed & are unremarkable except as noted in HPI and below Physical Exam Vital Signs: BMI result Body Mass Index 28.0 Const General: cooperative and no acute distress Orientation/consciousness: patient oriented x3 Resp Effort & Inspection: normal respiratory effort and able to speak in complete sentences Cardio Peripheral pulses: Peripheral pulses 2+ throughout Neuro General: patient oriented x3 Extrem Other: Left shoulder: Normal to inspection. No tenderness over the fracture site. She can bring her hand to her mouth and top of her head. IR to back pocket. Anterior deltoid sensation intact. Elbow and wrist ROM intact. NVI. Results Reviewed Results Reviewed: Xrays were obtained in the office today and personally reviewed by me of the left shoulder show humeral shaft fx with callus formation Assessment & Plan Assessment & Plan (1) Fracture of humeral shaft, left, closed: Code(s): S42.302A - Unspecified fracture of shaft of humerus, left arm, initial encounter for closed fracture Category: Medical Qualifiers: Encounter type: subsequent encounter Fracture alignment: displaced Fracture morphology: oblique Fracture healing: with routine healing Qualified Code(s): S42.332D - Displaced oblique fracture of shaft of humerus, left arm, subsequent encounter for fracture with routine healing Plan She will continue working with conservative treatment activities as tolerated but refrain from lifting activities. An order for physical therapy was also suggested but she would like to wait and see till she is interested in so. I would like to see her back in 6 weeks, sooner if needed. Orders: Orders XR humerus LT Today S42.309A - Unspecified fracture of shaft of humerus, unspecified arm, initial encounter for closed fracture PT Evaluation and Treatment Today S42.302A - Unspecified fracture of shaft of humerus, left arm, initial encounter for closed fracture Patient Instructions: Scribed for Otto Farrell PA-C, by Can Christina dental assistant medical assistant, on 10/02/2023 at 12:45 PM EST.? I, Otto Farrell PA-C, have personally reviewed and agree with the information entered by the scribe. Coding Level of Care Code Global (40180) Diagnoses Closed displaced oblique fracture of shaft of left humerus with routine healing, subsequent encounter S42.332D Encounter type: subsequent encounter Fracture alignment: displaced Fracture morphology: oblique Fracture healing: with routine healing
[2023-10-02 12:39] VITALS: BMI 28.0
== END 2023-10-02 13:14 | disposition home or self-care (01) ==
PROVIDERS: PCP Internal Medicine; Visit Provider Physician Assistant
DX: S42.332D Displaced oblique fracture of shaft of humerus, left arm, subsequent encounter for fracture with routine healing (principal); W19.XXXD Unspecified fall, subsequent encounter
CPT/HCPCS: 99213

== ENCOUNTER 2023-10-02 15:02 | Outpatient (REF) | payer MEDICARE, MEDICAID, SELFPAY ==
--- NOTE | ~2023-10-02 | XR_ITS ---
EXAMINATION: XR HUMERUS, LEFT CLINICAL INFORMATION: Fracture of humerus COMPARISON: Multiple prior examinations most recent August 2023. TECHNIQUE: AP and lateral views of the left humerus. FINDINGS: Prominent spiral oblique fracture the proximal humerus improved alignment compared with the prior examination allowing for slight differences in projection. There is a slight apex lateral angulation. Possible scattered areas of calcification overlying the area the fracture. Shoulder joints unremarkable. XR/XR humerus LT IMPRESSION: Proximal humerus fracture with improved alignment compared with the prior examination allowing for slight differences in projection. Scattered areas of ossification suggests some fracture healing with callus formation
== END 2023-10-02 15:03 | disposition home or self-care (01) ==
LOC: HO.HOSX 15:02
PROVIDERS: Visit Provider Physician Assistant
DX: S42.332D Displaced oblique fracture of shaft of humerus, left arm, subsequent encounter for fracture with routine healing (principal)
CPT/HCPCS: 73060; 99212

== ENCOUNTER 2023-11-17 08:29 | Outpatient (REF) | payer MEDICARE, MEDICAID, SELFPAY ==
--- NOTE | ~2023-11-17 | XR_ITS ---
EXAMINATION: XR SHOULDER, LEFT CLINICAL INFORMATION: Left shoulder pain, fracture follow-up COMPARISON: Radiographs 10/02/2023 TECHNIQUE: AP external rotation, Grashey, scapular Y, and axillary views of the left shoulder. FINDINGS: Stable position and alignment of the proximal humerus fracture. There is some callus formation although the fracture remains predominantly ununited. XR/XR shoulder LT min 2V IMPRESSION: Stable position and alignment of the proximal humerus fracture which remains predominantly ununited.
== END 2023-11-17 08:30 | disposition home or self-care (01) ==
LOC: HO.HOSX 08:29
PROVIDERS: Visit Provider Physician Assistant
DX: M25.512 Pain in left shoulder (principal); S42.332D Displaced oblique fracture of shaft of humerus, left arm, subsequent encounter for fracture with routine healing; X58.XXXD Exposure to other specified factors, subsequent encounter
CPT/HCPCS: 73030; 99212

== ENCOUNTER 2023-11-17 10:22 | Outpatient (AMB) | payer MEDICARE, MEDICAID, SELFPAY ==
--- NOTE | 2023-11-17 10:40 | A.OFFVIS_ITS ---
Vital Signs 11/17/23 10:43 Height 5 ft 3 in Weight 158 lb BMI 28.0 Intake Visit Reasons: OV-6 wk f/u Lt humerus fracture w xrays Intake Note: Meryl a 72 year old female presents today for a follow up s/p left humerus fracture DOI 08/15/23. Xrays updated. Patient reports she hasn't gone to physical therapy. Patient has been doing her PT at home and she finds little improvements in her ROM. Allergies No Known Allergies [No Known Allergies*] Allergy (Verified 11/17/23 10:43) Medication List - Last Reconciled 11/17/23 by Otto Farrell PA-C ibuprofen 600 mg PO TID lisinopril 1 tab PO DAILY tramadol 50 mg PO BID 7 days HPI HPI OV-6 wk f/u Lt humerus fracture w xrays: Details: 73-year-old female who returns to the office today for a follow-up of left humerus fracture, 08/15/23. She has not started with physical therapy however she works on home exercises with benefits. She denies any numbness or tingling. She has no other concerns today. PFSH Medical History Low back pain Stress incontinence of urine Hx of vertigo History of CVA (cerebrovascular accident) Wears dentures Smoker Surgical History History of bunionectomy of both great toes Hx of colonoscopy Social History Household Members: None Housing: Apartment Are you a primary managed care liaison to a significant other at home: No Do you presently have visiting nurse or other home services: No Alcohol intake: former Patient Tobacco Use Status: Former Tobacco user Tobacco use type: Cigarette Cigarettes Per Day: 12 Review of Systems Const All systems reviewed & are unremarkable except as noted in HPI and below Physical Exam Vital Signs: BMI result Body Mass Index 28.0 Const General: cooperative and no acute distress Orientation/consciousness: patient oriented x3 Resp Effort & Inspection: normal respiratory effort and able to speak in complete sentences Cardio Peripheral pulses: Peripheral pulses 2+ throughout Neuro General: patient oriented x3 Extrem Other: Left shoulder: Normal to inspection. No tenderness over the fracture site. She can bring her hand to her mouth and top of her head. IR to back pocket. Anterior deltoid sensation intact. Elbow and wrist ROM intact. NVI. Results Reviewed Results Reviewed: Xrays were obtained in the office today and personally reviewed by me of the left shoulder show humeral shaft fx with callus formation and good alignment Assessment & Plan Assessment & Plan (1) Fracture of humeral shaft, left, closed: Code(s): S42.302A - Unspecified fracture of shaft of humerus, left arm, initial encounter for closed fracture Category: Medical Qualifiers: Encounter type: subsequent encounter Fracture alignment: displaced Fracture healing: with routine healing Fracture morphology: oblique Qualified Code(s): S42.332D - Displaced oblique fracture of shaft of humerus, left arm, subsequent encounter for fracture with routine healing Plan She will continue to increase activities as tolerated without limitations as long as she is asymptomatic. She will follow-up as needed. Orders: Orders XR shoulder LT min 2V Today M25.512 - Pain in left shoulder Patient Instructions: Scribed for Otto Farrell PA-C, by Can Christina director global medical affairs, on 11/17/2023 at 10:30 AM EST.? I, Otto Farrell PA-C, have personally reviewed and agree with the information entered by the scribe. Coding Level of Care Code Global (27434) Diagnoses Closed displaced oblique fracture of shaft of left humerus with routine healing, subsequent encounter S42.332D Encounter type: subsequent encounter Fracture alignment: displaced Fracture healing: with routine healing Fracture morphology: oblique
[2023-11-17 10:43] VITALS: BMI 28.0
== END 2023-11-17 12:12 | disposition home or self-care (01) ==
PROVIDERS: PCP Internal Medicine; Visit Provider Physician Assistant
DX: S42.332D Displaced oblique fracture of shaft of humerus, left arm, subsequent encounter for fracture with routine healing (principal)
CPT/HCPCS: 99213

== ENCOUNTER 2023-11-27 12:44 | Outpatient (REF) | payer MEDICARE, MEDICAID, SELFPAY ==
--- NOTE | 2023-11-27 14:20 | MHC.AU.MED ---
Medical Clearance for Hearing Instrumentation Date: 11/27/23 Patient Name: Meryl Gonzalez Date of : 1950 Primary Care Provider: Sb Foster MD We have seen your patient on 11/27/23 and have determined that they are a candidate for amplification (See accompanying report). Specifically, they would benefit from: Hearing aid use in both ears There is a statute that addresses Medical Evaluation Requirements prior to fitting a patient with a hearing aid. According to [place] statute [facility] CMR:6.03(1), (a) General. Except as provided in 265 CMR 6.03(1)(b), a electric distribution engineer shall not sell a hearing aid unless the prospective user has presented to the electric distribution engineer a written statement signed by a licensed physician that states that the patient's hearing loss has been medically evaluated and the patient may be considered a candidate for a hearing aid. The medical evaluation must have taken place within the preceding six months. Please note: Due to the [place] Statute referenced above, we cannot accept a signature other than that of a licensed physician. JEWEL HOLE GAUGER and PA signatures cannot be accepted. I am in agreement with the above recommendation. There is no medical contraindication for hearing instrumentation. Physician Signature Date Physician Name (Printed)
--- NOTE | 2023-11-28 10:40 | MHC.AU.HA1 ---
Hearing Aid Evaluation Date of Visit: 11/27/23 Historical Information: Description of Hearing: Moderate to moderately-severe sensorineural hearing loss, bilaterally Summary: Hearing aids recommended in 2016; however, Meryl was not ready to pursue amplification at that time. Now she is noticing increasing hearing difficulties in all listening environments. Her children keep telling her she needs hearing aids. Difficulty following/understanding conversations. Television volume increased. Does not have cellphone - No interest in bluetooth. Opted for rechargeable RITE with custom ear molds. Impressions taken, bilaterally, without incident. Hearing Aid Prescription: Based on the individual?s shared listening needs, communication environments, dexterity, desire for connectivity, and personal preferences, the following prescription for amplification has been made: Right ear: Make, Model, Color: Phonak Audeo L70-R Color: Champagne Battery Size: Rechargeable Obstetrics Gynecology Physician/Slim Tube: 2P Type of Earmold/Dome/CShell/SlimTip: c-shell Left ear: Left ear prescription to be same as Right Hearing Aid above: Make, Model, Color: Phonak Audeo L70-R Color: Champagne Battery Size: Rechargeable Obstetrics Gynecology Physician/Slim Tube: 2P Type of Earmold/Dome/CShell/SlimTip: c-shell Accessories/Assistive Technology: Jigger Artisan Plan of Care: Patient wishes to purchase hearing aids as prescribed Action Taken/Action Needed: Medical Clearance to be requested from PCP/ENT. Hearing Instrument Fitting to be scheduled when materials arrive Primary Diagnosis: H90.3 Bilateral Sensorineural Hearing Loss Signature: Provider: Jasen Luo, [facility]
== END 2023-11-27 12:45 | disposition home or self-care (01) ==
LOC: HO.SH 12:44
PROVIDERS: Visit Provider Internal Medicine
DX: Z01.118 Encounter for examination of ears and hearing with other abnormal findings (principal); Z46.1 Encounter for fitting and adjustment of hearing aid; H90.3 Sensorineural hearing loss, bilateral
CPT/HCPCS: 92557; 92567; 92591; V5275

== ENCOUNTER 2023-12-27 12:44 | Outpatient (REF) | payer MEDICARE, MEDICAID, SELFPAY ==
--- NOTE | 2023-12-27 13:36 | MHC.AU.HA2 ---
Hearing Instrument Fitting- Adult- Binaural Date of Visit: 12/27/23 Hearing Instruments Dispensed: Right Ear: Aurelio, Model, Color, Serial Number: Jose Juan Turcios L70-R SN: [id number] Color: Leesae Disposal Worker Repair Warranty: 01/08/2027 Disposal Worker Loss and Damage Warranty: 01/08/2027 [facility] Service Plan: 12/27/2023 Battery Size: Rechargeable Screen Printing Cloth Spreader/Slim Tube: 2P Earmold/Dome/CShell/SlimTip: c-shell SN: [id number] Tonny: 04/08/2024 Type of Wax Guard: Cerustop Left Ear: Aurelio, Model, Color, Serial Number: Jose Juan Turcios L70-R SN: [id number] Color: Leesae Disposal Worker Repair Warranty: 01/08/2027 Disposal Worker Loss and Damage Warranty: 01/08/2027 [facility] Service Plan: 12/26/2024 Battery Size: Rechargeable Screen Printing Cloth Spreader/Slim Tube: 2P Earmold/Dome/CShell/SlimTip: c-shell SN: [id number] Tonny: 04/08/2024 Type of Wax Guard: Cerustop Accessories/Assistive Technology: Phonak battery charger tester ease SN: [id number] Summary of Fitting: Ran feedback analyzer and real ear measures. Changed occlusion compensation to strong. Own voice still too loud; however, willing to try to acclimate. Otherwise, sound quality comfortable. Discussed care, use, and rechargeability including manually turning on/off, VC use, and changing wax guards. Explained importance of daily, consistent use, especially in acclimating to own voice. If issues persist with sound of own voice, will readdress at follow up after having time to try to acclimate. Does not have cellphone - no interest in bluetooth. Recommendations: A hearing instrument follow-up was scheduled. Diagnosis Code(s): Primary Diagnosis: H90.3 Bilateral Sensorineural Hearing Loss Signature: Provider: Jasen Luo, [facility]
== END 2023-12-27 12:45 | disposition home or self-care (01) ==
LOC: HO.HAP 12:44
PROVIDERS: Visit Provider Internal Medicine
DX: Z46.1 Encounter for fitting and adjustment of hearing aid (principal); H90.3 Sensorineural hearing loss, bilateral
CPT/HCPCS: V5011; V5020; V5160; V5261; V5264

== ENCOUNTER 2024-01-11 13:55 | Outpatient (REF) | payer MEDICARE, MEDICAID, SELFPAY | END 2024-01-11 13:56 | disposition home or self-care (01) | LOC: HO.HAP 13:55 | PROVIDERS: Visit Provider Internal Medicine | DX: Z13.89 Encounter for screening for other disorder (principal) ==

== ENCOUNTER 2024-01-30 09:30 | Outpatient (REF) | payer MEDICARE, MEDICAID, SELFPAY ==
[2024-01-30 13:45] LABS: Appearance Urine Cloudy; Color Urine Yellow; Glucose Urine UA Negative (Negative); Leukocyte Esterase Urine Trace (Negative); Nitrite Urine Negative (Negative); UMIC TRIGGER UACC YES; Urine Blood Negative (Negative); Urine Ketones Negative (Negative); Urine Protein Negative (Neg-Trace)
[2024-01-30 13:58] LABS: Bacteria Urine None Seen (None Seen); Calcium Oxalate Crystals Urine Present; Hyaline Casts Urine 0-2 /LPF (0-2); RBC Urine 0-2 /HPF (0-2); Squamous Epithelial Cell Urine 0-2 /HPF (0-2); WBC Urine 0-5 /HPF (0-5)
== END 2024-01-30 09:31 | disposition home or self-care (01) ==
LOC: HO.HMGCLDS 09:30
PROVIDERS: PCP Internal Medicine; Visit Provider Internal Medicine
DX: R30.0 Dysuria (principal)
CPT/HCPCS: 81001; 87086

== ENCOUNTER 2024-07-29 11:39 | Outpatient (REF) | payer MEDICARE, MEDICAID, SELFPAY | END 2024-07-29 11:40 | disposition home or self-care (01) | LOC: HO.SH 11:39 | PROVIDERS: Visit Provider Internal Medicine | DX: Z13.89 Encounter for screening for other disorder (principal) ==

== ENCOUNTER 2024-07-31 14:16 | Outpatient (REF) | payer MEDICARE, MEDICAID, SELFPAY | END 2024-07-31 14:17 | disposition home or self-care (01) | LOC: HO.SH 14:16 | PROVIDERS: Visit Provider Internal Medicine | DX: Z13.89 Encounter for screening for other disorder (principal) ==

== ENCOUNTER 2024-08-24 12:03 | Emergency (ER) | payer MEDICARE, MEDICAID, SELFPAY ==
[2024-08-24 12:06] VITALS: BP 167/85; PULSE 85; RESP 16; TEMP 36.1; O2SAT 97; BMI 35.2
--- NOTE | 2024-08-24 12:09 | ED_ITS ---
HPI - General Adult General Chief complaint: Urogenital-Female Stated complaint: Burning while peeing Time Seen by Provider: 08/24/24 12:19 Source: patient and old records reviewed Mode of arrival: ambulatory Limitations: no limitations History of Present Illness ED Provider: LUIS WHITTINGTON narrative: 73 yo female with PMH of HTN who has felt vaginal burning for 1.5 months when she urinates. No n/v/d, no fevers, no back pain. She denies sexual activity or discharge. She states it just hurts and she can't take it any longer. She has not seen her PCP as he retired and she is not sure what to use. MD complaint: vaginal burning Onset (ago): month(s) (1) Location: genitals Severity: mild Quality: burning Pain Consistency: intermittent Relieving factors: none Exacerbating factors: other (urination) Associated symptoms: denies other symptoms Treatments prior to arrival: none Related Data Home Medications ?Medication ?Instructions ?Recorded ?Confirmed lisinopril 5 mg tablet 1 tab PO DAILY 10/22/21 11/17/23 ibuprofen 600 mg tablet 600 mg PO TID 05/01/23 11/17/23 Previous Rx's ?Medication ?Instructions ?Recorded tramadol 50 mg tablet 50 mg PO BID 7 days #14 tabs 08/23/23 Allergies Allergy/AdvReac Type Severity Reaction Status Date / Time No Known Allergies Allergy Verified 08/24/24 12:08 [No Known Allergies*] Review of Systems 2 Review of Systems: Constitutional : No Fever, No Chills, No Fatigue ENT/Mouth : No sore throat, No Rhinorrhea Eyes: No Eye Pain, No Swelling, No Redness Cardiovascular : No Chest Pain, No SOB, No Dyspnea on Exertion Respiratory : No Cough, No Sputum Gastrointestinal : No Nausea, No Vomiting, No Diarrhea, No abdominal Pain Genitourinary : No Dysuria, No Urinary Frequency, No Hematuria, pos vaginal pain Musculoskeletal : No joint pain, No Myalgias, No Joint Swelling Skin : No Skin Lesions, No rash Neuro : No Weakness, No Numbness, No Dizziness, no Headache Psych : No Anxiety/Panic, No Depression All other systems reviewed and are negative PMFSH Past Medical History Attestation statement: The following information was validated with the patient. Source: old records reviewed Medical History Low back pain Stress incontinence of urine Hx of vertigo History of CVA (cerebrovascular accident) Wears dentures Smoker Surgical History History of bunionectomy of both great toes Hx of colonoscopy Social History Social History Household Members: None Housing: Apartment Are you a primary career based intervention coordinator to a significant other at home: No Do you presently have visiting nurse or other home services: No Alcohol intake: former Patient Tobacco Use Status: Former Tobacco user Tobacco use type: Cigarette Cigarettes Per Day: 12 Advance Directives: No Advance Directives Information Provided: No Do you have a plan to hurt others: No Plan Physical Exam ED Vital Signs: Vital Signs - 24 hr 08/24/24 12:06 08/24/24 13:25 Temperature 96.9 F 98 F Pulse Rate 85 77 Respiratory Rate 16 18 Blood Pressure 167/85 H 144/91 H Pulse Oximetry 97 98 Oxygen Delivery Method Room Air BMI result Body Mass Index 35.2 Appearance: Alert. Oriented X3. No acute distress. Eyes: Pupils equal, round and reactive to light. ENT: Pharynx normal. Neck: Normal inspection. Neck supple. CVS: Normal heart rate and rhythm. Pulses normal. Respiratory: No respiratory distress. Breath sounds normal. Abdomen: Soft and nontender. no CVA ttp : performed by Cristo HOLIDAY DETECTOR OPERATOR - exam shows very red thin and dry vaginal skin - no lesions noted Skin: Skin warm and dry. Normal skin color. Normal skin turgor. Extremities: No lower extremity edema. No calf ttp Neuro: Oriented X 3. No motor deficit. No sensory deficit. CN2-12 intact Course Course Course Narrative: This is a rapid medical exam performed by Max Lr NP: Additional HPI, ROS, PE not included below will be deferred to primary provider. 08/24/24 12:09 Patient is a 73-year-old female presenting with 1 month of dysuria. Plan: UA Medical Decision Making Medical Decision Making MDM Narrative: 73 yo female with PMH of HTN here with c/o vaginal burning after she urinates she is not sexually active and she has no discharge or systemic symptoms such as n/v/d or rash. At this time I do suspect vaginal atrophy I am going to obtain UA and basic labs will start on OTC topical lubricants and did inform her that she may need estradiol cream if this doesn't work. Differential Diagnosis Differential Diagnoses: The differential diagnosis associated with the presentation includes UTI, vaginal atrophy she is not sexually active doubt STI Lab Data MDM Lab Attestation statement: I reviewed the patient's lab results. 08/24/24 12:16 08/24/24 12:16 Labs: Lab Results 08/24/24 08/24/24 Range/Units 12:16 12:21 WBC 11.8 H (4.8-10.8) X10*3/uL RBC 4.86 (4.20-5.50) X10*6/uL Hgb 14.9 (12.0-16.0) g/dl Hct 42.7 (37.0-47.0) % MCV 87.9 (80.0-98.0) fL MCH 30.7 (27.0-33.0) pg MCHC 34.9 (31.0-35.0) g/dl RDW 12.7 (11.0-16.0) % Plt Count 320 (160-400) X10*3/uL MPV 9.4 (9.4-12.3) fL Immature Gran % (Auto) 0.3 (0.0-0.4) % Neut % (Auto) 63.9 (45-73) % Lymph % (Auto) 29.0 (20-40) % [place] % (Auto) 4.0 (2-11) % Eos % (Auto) 2.1 (0-4) % Baso % (Auto) 0.7 (0-2) % Lymph # (Auto) 3.4 (1.2-4.9) X10*3/uL [place] # (Auto) 0.5 (0.1-1.2) X10*3/uL Eos # (Auto) 0.3 (0.0-0.4) X10*3/uL Baso # (Auto) 0.1 (0.0-0.2) X10*3/uL Abs Immat Gran (auto) 0.04 H (0.00-0.03) X10*3/uL Absolute Neuts (auto) 7.6 (2.0-8.3) x10*3/uL Absolute Nucleated RBC 0.000 (0.0-0.012) X10*3/uL Nucleated RBC % (auto) 0.0 (0.0-0.2) /100WBC Sodium 145 (135-145) mmol/L Potassium 4.5 (3.3-5.1) mmol/L Chloride 112 H (96-108) mmol/L Carbon Dioxide 26 (22-29) mmol/L Anion Gap 12 (12-20) BUN 13 (9-16) mg/dL Creatinine 0.65 (0.5-1.4) mg/dL Estim Creat Clear Calc 70.7 Estimated GFR > 60 Random Glucose 92 (60-115) mg/dL Calcium 9.1 (8.4-10.2) mg/dL Total Bilirubin 0.3 (0.0-1.0) mg/dL AST 24 (5-31) U/L ALT 19 (0-31) U/L Alkaline Phosphatase 90 (39-117) U/L Total Protein 7.0 (6.5-8.0) g/dL Albumin 4.2 (3.5-5.0) g/dL Urine Color Yellow Urine Appearance Clear Urine pH 7.0 (5.0-9.0) Ur Specific [place] <= 1.005 (1.005-1.025) Urine Protein Negative (Neg-Trace) mg/dL Urine Glucose (UA) Negative (Negative) mg/dL Urine Ketones Negative (Negative) mg/dL Urine Blood Negative (Negative) Urine Nitrite Negative (Negative) Ur Leukocyte Esterase Negative (Negative) External Record Review External record reviewed: Outpatient record Prescription Management I considered prescription management with: Other Discharge Plan Discharge Clinical Impression: Vaginal dryness Patient Disposition: Home, Self-Care Instructions: Vaginal Atrophy (ED) Additional Instructions: return for any worsening symptoms or concerns follow up with your doctor in May as planned your labs and urine are normal today please start with over the counter lubricant Vaginal Replenish and use according to package instructions if this does not work in the next month please follow up you may need hormonal cream. Prescriptions: No Action tramadol 50 mg tablet 50 mg PO BID 7 Days Qty: 14 0RF lisinopril 5 mg tablet 1 tab PO DAILY ibuprofen 600 mg tablet 600 mg PO TID Interventions: ED Discharge Assessment Last Done: 08/24/24 13:25 Discharge Date/Time: 08/24/24 13:25 Print Language: Macedonian
[2024-08-24 12:26] LABS: Basophils Absolute Auto 0.1 X10*3/uL (0.0-0.2); Basophils Percent Auto 0.7 % (0-2); Eosinophils Absolute Auto 0.3 X10*3/uL (0.0-0.4); Eosinophils Percent Auto 2.1 % (0-4); Hematocrit 42.7 % (37.0-47.0); Hemoglobin 14.9 g/dl (12.0-16.0); Imm Gran Abs Auto 0.04 X10*3/uL (0.00-0.03); Imm Gran Pct Auto 0.3 % (0.0-0.4); Lymphocytes Absolute Auto 3.4 X10*3/uL (1.2-4.9); MANUAL DIFF FLAG NO; Mean Corpuscular HGB Conc 34.9 g/dl (31.0-35.0); Mean Corpuscular Hemoglobin 30.7 pg (27.0-33.0); Mean Corpuscular Volume 87.9 fL (80.0-98.0); Mean Platelet Volume 9.4 fL (9.4-12.3); Monocytes Absolute Auto 0.5 X10*3/uL (0.1-1.2); Neutrophils Absolute Auto 7.6 x10*3/uL (2.0-8.3); Neutrophils Percent Auto 63.9 % (45-73); Platelet Count 320 X10*3/uL (160-400); Red Blood Count 4.86 X10*6/uL (4.20-5.50); Red Cell Distribution Width 12.7 % (11.0-16.0); White Blood Count 11.8 X10*3/uL (4.8-10.8)
[2024-08-24 12:28] LABS: Appearance Urine Clear; Color Urine Yellow; Glucose Urine UA Negative (Negative); Leukocyte Esterase Urine Negative (Negative); Nitrite Urine Negative (Negative); Specific Gravity - Urine <= 1.005 (1.005-1.025); Urine Blood Negative (Negative); Urine Ketones Negative (Negative); Urine Protein Negative (Neg-Trace)
[2024-08-24 12:39] LABS: Alanine Aminotransferase 19 U/L (0-31); Albumin Level 4.2 g/dL (3.5-5.0); Alkaline Phosphatase 90 U/L (39-117); Anion Gap 12 (12-20); Aspartate Amino Transferase 24 U/L (5-31); Bilirubin Total 0.3 mg/dL (0.0-1.0); Blood Urea Nitrogen 13 mg/dL (9-16); Calcium 9.1 mg/dL (8.4-10.2); Carbon Dioxide 26 mmol/L (22-29); Chloride 112 mmol/L (96-108); Creatinine Clr Calc Pharmacy 70.7; Estimated Glomerular Filt Rate > 60; Glucose Random 92 mg/dL (60-115); Potassium 4.5 mmol/L (3.3-5.1); Sodium 145 mmol/L (135-145)
[2024-08-24 13:25] VITALS: BP 144/91; PULSE 77; RESP 18; TEMP 36.6; O2SAT 98
== END 2024-08-24 13:25 | disposition home or self-care (01) ==
PROVIDERS: Registered Nurse Emergency; Emergency Provider Emergency Medicine
DX: R30.0 Dysuria (principal); Z79.899 Other long term (current) drug therapy
CPT/HCPCS: 36415; 80053; 81003; 85025; 99282; 99283

== ENCOUNTER 2024-09-16 10:26 | Outpatient (AMB) | payer MEDICARE, MEDICAID, SELFPAY ==
--- NOTE | 2024-09-16 10:30 | MHC.PC.OV ---
Vital Signs 09/16/24 10:32 Height 5 ft Weight 152 lb BMI 29.7 BP 128/80 Blood Pressure Location Lt brachial Position Sitting Pulse 88 Pulse Source Pulse Oximeter Temp 97.4 F Temp Source Axillary Pulse Oximetry (%) 99 Oxygen Delivery Method Room Air Intake Visit Reasons: Routine - see comments Aircraft Painter Apprentice Required: No Accompanied by: Self / Same As Patient Allergies No Known Allergies [No Known Allergies*] Allergy (Verified 09/16/24 11:10) Medication List - Last Reconciled 09/16/24 by Da Gonzáles MD cholecalciferol (vitamin D3) 25 mcg PO DAILY lisinopril 1 tab PO DAILY Tobacco use date assessed: 09/16/24 Fall risk assessment: 1 Fall in past year Last assessed Fall Risk: 09/16/24 Dental Screening Dental Screen Date: 09/16/24 Did you have a dental visit in the last 12 months?: No Did you have a dental problem in the last 6 months where you did not have access to dental care?: No PFSH Medical History Essential hypertension Tobacco use disorder Low back pain Stress incontinence of urine Hx of vertigo History of CVA (cerebrovascular accident) Wears dentures Smoker Surgical History History of bunionectomy of both great toes Hx of colonoscopy (~10/29/21) Family History Mother No problems noted. Father No problems noted. Social History Household Members: None Housing: Apartment Are you a primary wound care specialist to a significant other at home: No Do you presently have visiting nurse or other home services: No Alcohol intake: former Patient Tobacco Use Status: Current everyday Tobacco user Tobacco use type: Cigarette Cigarettes Per Day: 12 e-Cigarette/Vaping Use: Currently Using service: No Current occupational status: retired Cognitive needs: No Hearing needs: Yes (bilateral hearing aids) Vision needs: Yes (reading glasses) Questionnaire PHQ-9 Over the last 2 weeks, how often have you been bothered by any of the following problems? 1. Little interest or pleasure in doing things: not at all 2. Feeling down, depressed, or hopeless: not at all 3. Trouble falling or staying asleep, or sleeping too much: not at all 4. Feeling tired or having little energy: not at all 5. Poor appetite or overeating: not at all 6. Feeling bad about yourself - or that you are a failure or have let yourself or your family down: not at all 7. Trouble concentrating on things, such as reading the newspaper or watching television: not at all 8. Moving or speaking so slowly that other people could have noticed. Or the opposite - being so fidgety or restless that you have been moving around a lot more than usual: not at all 9. Thoughts that you would be better off or of hurting yourself in some way: not at all Total score: 0 Depression Screening Interpretation: Negative Depression Screening Done: Yes Source: Developed by Drs. Mark Anthony Messer, Arianna Luna, Panfilo Suggs and colleagues, with an educational minoo from [employer]. Thrive Questionnaire Date Thrive assessed: 09/16/24 I am a: Patient Within the past 12 months, did the food you bought not last and you didn't have the money to get more?: Never true Within the past 12 months, did you worry whether your food would run out before you got money to buy more?: Never true Do you have trouble paying for medicines?: No Do you have trouble getting transportation to medical appointments?: No Do you have trouble paying your heating and electricity bill?: No Do you have trouble taking care of your child, family member or friend?: No Do you have trouble with day-to-day activities such as bathing, preparing meals, shopping, managing finances, etc.?: No Are you currently unemployed and looking for a job?: No Are you interested in more education?: No Currently or been in a relationship where the following occur: No concerns reported THRIVE Score: 0 AUDIT C Alcohol Use Questionnaire (AUDIT-C) 1. How often do you have a drink containing alcohol?: Never 3. How often do you have six or more drinks on one occasion?: Never Total Score: 0 SWAPNA-7 AMB Questionnaire SWAPNA-7 Date SWAPNA - 7 assessed: 09/16/24 Feeling nervous, anxious, or on edge: 0 = Not at all Not being able to stop or control worryin = Not at all Worrying too much about different things: 0 = Not at all Trouble relaxin = Not at all Being so restless that it is hard to sit still: 0 = Not at all Becoming easily annoyed or irritable: 0 = Not at all Feeling afraid as if something awful might happen: 0 = Not at all Total SWAPNA-7 score (0-4 normal; 5-9 mild; 10-14 moderate; 15-21 severe): 0 Source: Developed by Drs. Mark Anthony Messer, Arianna Luna, Panfilo Suggs and colleagues, with an educational minoo from [employer]. Physical exam (Primary Care) Vital Signs: Last Vital Signs Temp 97.4 F 09/16/24 10:32 Pulse 88 09/16/24 10:32 BP 128/80 09/16/24 10:32 Pulse Ox 99 09/16/24 10:32 Oxygen Delivery Method Room Air 09/16/24 10:32 Care Plan Goal for BP management: Blood pressure is in range. Continue current medications. BMI result Body Mass Index 29.7 Tobacco/Smoking Status: Tobacco use Status Tobacco use date assessed 09/16/24 09/16/24 10:40 Patient Tobacco Use Status Current everyday Tobacco 09/16/24 10:40 Tobacco use type Cigarette 09/16/24 10:31 e-Cigarette/Vaping Use Currently Using 09/16/24 10:40 Are you ready to quit: No Tobacco cessation counseling provided: Yes CPT code: Less than 3 minutes PHQ-9: PHQ-9 Score PHQ-9: Total score 0 09/16/24 10:40 Depression Screening Interpretation: Negative Thrive Assessment: Date of Thrive Assessment Date Thrive assessed 09/16/24 09/16/24 10:40 Currently or been in a relationship where the following occur: No concerns reported Coding Level of Care Code New Pt Level 4 (26943) Complex EM visit Add On G2211 Diagnoses Back pain M54.9 Compression fracture of T12 vertebra, initial encounter S22.080A Encounter type: initial encounter Fracture of vertebra location: thoracic Thoracic vertebra fracture level: T12 Tobacco use disorder F17.200 Essential hypertension I10 Assessment & Plan Assessment & Plan (1) Back pain: Code(s): M54.9 - Dorsalgia, unspecified Category: Medical Plan: Condition is stable. (2) Compression fracture of vertebrae: Code(s): M48.50XA - Collapsed vertebra, not elsewhere classified, site unspecified, initial encounter for fracture Category: Medical Qualifiers: Encounter type: initial encounter Fracture of vertebra location: thoracic Thoracic vertebra fracture level: T12 Qualified Code(s): S22.080A - Wedge compression fracture of T11-T12 vertebra, initial encounter for closed fracture Plan: Condition is stable. (3) Tobacco use disorder: Code(s): F17.200 - Nicotine dependence, unspecified, uncomplicated Category: Medical Plan: 15 minutes spent counseling the patient to quit smoking. (4) Essential hypertension: Code(s): I10 - Essential (primary) hypertension Category: Medical Plan: Blood pressure is in range. Continue current medications. Plan History of Present Illness The patient is a 73-year-old female presenting with fear of falling and a wellness visit. She describes a significant fear of falling subsequent to an incident last year in which she broke her arm. This fear has led her to curtail her walking activities unless accompanied by her daughter. Despite this limitation, she seeks to maintain an active lifestyle. Her medical history is notable for treated essential hypertension and nicotine dependence with current smoking. She reports a past back surgery in 2022. Recent laboratory results are within normal limits, and she plans a mammogram in the following week. Social History - Lives alone and takes care of personal finances and cooking. - Smokes approximately one pack of cigarettes per day and has reduced smoking from previous levels. - Dependent upon friends for grocery shopping transportation. 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 - Expresses a desire to remain active but cautious due to fear of falling. Review of Systems - Musculoskeletal: Reports fear of falling when walking, particularly when unaccompanied. - Neurological: Denies hearing well; no acute pain mentioned. - Psychiatric: Reports nervousness related to mobility. Physical Exam General: Cooperative and healthy appearing Nutritional Appearance: Well nourished Orientation/consciousness: Patient oriented x3 Limitations: No limitations Head: Normal to inspection General: Appearance normal, both eyes and all related structures Neck: Normal visual inspection Chest: Normal palpation of entire chest wall Respiratory: Smokes a pack a day ormal respiratory effort Neurology: Patient oriented x3, reports fear of walking due to a fall last year Results - Labs: Recent blood work is reported to be normal. - Tests: Mammogram ordered for next week. Plan 1. Essential Hypertension - Continue current antihypertensive therapy. - Routine monitoring of blood pressure. 2. Nicotine Dependence - Discuss smoking reduction further and review potential cessation options. 3. Fear Of Falling - Advise walking with support and cautious activity. 4. Status Post-Back Surgery - Observation of recovery post-surgery. 5. Preventive Care - Arrange mammogram the next week as planned. Discussion Notes During the consultation, we discussed the patient's current management of essential hypertension and her ongoing issue with nicotine dependence, including her efforts to reduce smoking and potential cessation strategies. Her primary concern about the fear of falling was addressed with recommendations to walk with supportive accompaniment to build confidence and maintain some level of activity. The importance of routine health maintenance, including scheduling a mammogram, was emphasized. A mammogram appointment will be coordinated for next week. We concluded the visit with plans for continued monitoring of her conditions and recommended follow-up in six months for a wellness evaluation. Patient Instructions - Continue to take high blood pressure medication as prescribed. - Monitor your blood pressure regularly. - Try to reduce smoking; consider reducing more over time. - Walk with a make up man to help alleviate fear of falling. - Attend your scheduled mammogram next week. - Reach out to friends for transportation as needed for errands. - Follow up in six months for another wellness check-up. Orders: Orders Lipid Panel 03/10/25 F17.200 - Nicotine dependence, unspecified, uncomplicated, I10 - Essential (primary) hypertension, M54.9 - Dorsalgia, unspecified, S22.080A - Wedge compression fracture of T11-T12 vertebra, initial encounter for closed fracture Liver Panel 03/10/25 F17.200 - Nicotine dependence, unspecified, uncomplicated, I10 - Essential (primary) hypertension, M54.9 - Dorsalgia, unspecified, S22.080A - Wedge compression fracture of T11-T12 vertebra, initial encounter for closed fracture MM screening mammo BI Today Z12.31 - Encounter for screening mammogram for malignant neoplasm of breast Basic Metabolic Panel 03/10/25 F17.200 - Nicotine dependence, unspecified, uncomplicated, I10 - Essential (primary) hypertension, M54.9 - Dorsalgia, unspecified, S22.080A - Wedge compression fracture of T11-T12 vertebra, initial encounter for closed fracture Complete Blood Count no Diff 03/10/25 F17.200 - Nicotine dependence, unspecified, uncomplicated, I10 - Essential (primary) hypertension, M54.9 - Dorsalgia, unspecified, S22.080A - Wedge compression fracture of T11-T12 vertebra, initial encounter for closed fracture Thyroid Stimulating Hormone 03/10/25 F17.200 - Nicotine dependence, unspecified, uncomplicated, I10 - Essential (primary) hypertension, M54.9 - Dorsalgia, unspecified, S22.080A - Wedge compression fracture of T11-T12 vertebra, initial encounter for closed fracture UA and rflx microscopic 03/10/25 F17.200 - Nicotine dependence, unspecified, uncomplicated, I10 - Essential (primary) hypertension, M54.9 - Dorsalgia, unspecified, S22.080A - Wedge compression fracture of T11-T12 vertebra, initial encounter for closed fracture
[2024-09-16 10:32] VITALS: BP 128/80; PULSE 88; TEMP 36.3; O2SAT 99; BMI 29.7
--- OUTSIDE RECORDS SUMMARY | 2024-09-16 11:49 | XMS_ITS | Patient Health Record ---
Author Organization [facility] Address [address] [place] [address] Care Team Providers Care Manager Forms Name Role Phone Sb Foster MD Primary Care Provider Mark Anthony Light Unavailable [phone] Allergies No Known Allergies Reason For Referral No Information Medications Medication SIG (Take, Route, Fr equency, Duration) Notes Start Date End Date Status Vitamin D 1000 UNIT 1 tablet Orally Once a day Active Lisinopril 5 MG 1 tablet Orally Once a day Active Multivitamin Active Immunizations Vaccine Route Administration Date Status Comme nts Influenza Unknown 09/30/2021 Refused Problems Problem Type SNOMED Code ICD Code Onset Dates Problem Status W/U Status Risk Notes Problem 346569489 Encounter for screening for malignant neoplasm of colon (Z12.11) Active confirmed Problem 543434183 History of adenomatous polyp of colon (Z86.010) Active confirmed Problem Screening for malignant neoplasm of rectum (526317822) Encounter for screening for malignant neoplasm of rectum (Z12.12) Active confirmed Problem 32586658 Preprocedural examination (Z01.818) Active confirmed Problem Family History of Cancer of Colon (Situation) (777969838) Family history of colon cancer (Z80.0) Active confirmed Problem Diverticulosis of colon (670530602) Diverticulosis of colon (K57.30) Active confirmed Plan Of Treatment Pending Test Test Name Order Date Pathology 10/29/2021 Future Test Test Name Order Date COLONOSCOPY 11/24/2015 COLONOSCOPY 09/30/2021 Insurance Providers Payer Name Payer Address Payer Phone Subscriber Number Group Number Insured Name Patient Relationship to Insured Coverage Start Date Coverage End Date MEDICARE OF [place] [address] [place] [id number] [phone] [id number] RENATA BOYD Self - patient is the insured MEDICAID OF [facility] [address] [place] [phone] [id number] RENATA BOYD Self - patient is the insured Medical (General) History Medical History History ICD Code Neg. colonoscopy 2005; colon oscopy in 12/2010 with a small tubular adenoma and mild sigmoid diverticulosis Denies [place],DM,CVA,Lung disease,renal dise ase HTN Negative colonoscopy in 02/2016 Surgical History Surgery Date(Month/Year) Appendectomy YOLETTE Foot surgery Benign breast biopsies
== END 2024-09-16 11:21 | disposition home or self-care (01) ==
LOC: HO.HMCHD 10:26
PROVIDERS: PCP Internal Medicine; Visit Provider Internal Medicine
DX: M54.9 Dorsalgia, unspecified (principal); S22.080A Wedge compression fracture of T11-T12 vertebra, initial encounter for closed fracture; F17.200 Nicotine dependence, unspecified, uncomplicated; I10 Essential (primary) hypertension

== ENCOUNTER → 2024-09-16 10:26 | Outpatient (BNVA) | payer MEDICARE, MEDICAID, SELFPAY | PROVIDERS: PCP Internal Medicine; Visit Provider Internal Medicine | DX: M54.9 Dorsalgia, unspecified (principal); I10 Essential (primary) hypertension; F17.200 Nicotine dependence, unspecified, uncomplicated; S22.080D Wedge compression fracture of T11-T12 vertebra, subsequent encounter for fracture with routine healing | CPT/HCPCS: 99202 ==

== ENCOUNTER 2024-10-10 12:22 | Emergency (ER) | payer MEDICARE, MEDICAID, SELFPAY ==
[2024-10-10 12:30] VITALS: BP 156/88; PULSE 103; O2SAT 98
[2024-10-10 12:34] VITALS: BP 138/77; PULSE 93; RESP 20; TEMP 36.6; O2SAT 95; BMI 27.8
--- NOTE | 2024-10-10 12:54 | ED_ITS ---
HPI - Dizziness General Chief Complaint: Dizziness Stated Complaint: DIZZY X2D,BLURRED VISION,-THINNER PER EMS Time Seen by Provider: 10/10/24 12:31 Source: patient and EMS Limitations: no limitations History of Present Illness ED Provider: HPI Narrative: 74-year-old woman, smoker, history of high blood pressure, reports history of vertigo in the past, states felt that she was spinning she has had that in the past she took medicine for this she is not able to recall the name, has not had any headaches vision changes weakness in upper or lower extremities difficulty speaking, has had no chest pain shortness of breath palpitations or dysuria. MD elicited complaint: dizziness Pertinent past history: BPPV Related Data Home Medications ?Medication ?Instructions ?Recorded ?Confirmed lisinopril 5 mg tablet 1 tab PO DAILY 10/22/21 11/17/23 cholecalciferol (vitamin D3) 25 25 mcg PO DAILY 09/16/24 mcg (1,000 unit) capsule Previous Rx's ?Medication ?Instructions ?Recorded meclizine 12.5 mg tablet 12.5 mg PO TID PRN vertigo 14 days 10/10/24 #30 tabs scopolamine base 1 mg over 3 days 1 patch transdermal Q3D PRN 10/10/24 transdermal patch vertigo 7 days #4 ea Allergies Allergy/AdvReac Type Severity Reaction Status Date / Time No Known Allergies Allergy Verified 10/10/24 12:35 [No Known Allergies*] Review of Systems 2 Constitutional: Constitutional: Reports as per HPI [facility] Past Medical History Medical History Essential hypertension Tobacco use disorder Low back pain Stress incontinence of urine Hx of vertigo History of CVA (cerebrovascular accident) Wears dentures Smoker Surgical History History of bunionectomy of both great toes Hx of colonoscopy (~10/29/21) Family History Family History Mother No problems noted. Father No problems noted. Social History Social History Household Members: None Housing: Apartment Are you a primary family day carer to a significant other at home: No Do you presently have visiting nurse or other home services: No Alcohol intake: former Patient Tobacco Use Status: Current everyday Tobacco user Tobacco use type: Cigarette Cigarettes Per Day: 12 Smoked in Last 30 Days: Yes e-Cigarette/Vaping Use: Currently Using Advance Directives: No Advance Directives Information Provided: Yes service: No Current occupational status: retired Cognitive needs: No Hearing needs: Yes (bilateral hearing aids) Vision needs: Yes (reading glasses) Physical Exam 2 Vital Signs: Vital Signs: Last Vital Signs Temp 98 F 10/10/24 12:34 Pulse 93 10/10/24 12:34 Resp 20 10/10/24 12:34 BP 138/77 10/10/24 12:34 Pulse Ox 95 10/10/24 12:34 O2 Del Method Room Air 10/10/24 12:34 BMI result Body Mass Index 27.8 Const: Other: * Gen: ?Overall well-appearing patient * HEENT: PERRLA, EOMI, MMM, pupils 3 mm reactive bilaterally, she has left-sided horizontal nystagmus without vertical or rotary component * Neck: Supple, no LAD * CV: RRR, * Resp: ?No wheezing rales rhonchi no stridor moving air well * Abd: ?Bowel sounds are present, no tenderness no rebound no rigidity * MSK: FROM, strength 5/5 all extremities * Skin: Warm, dry, intact, * Neuro: ?Alert and oriented x3, moving upper and lower extremities symmetrically, no obvious facial asymmetry noted, no dysmetria upper or lower extremities Medications Administered Discontinued Medications Generic Name Dose Route Start Last Admin Trade Name Freq PRN Reason Stop Dose Admin Sodium Chloride 500 mls @ 999 mls/hr 10/10/24 13:00 10/10/24 13:16 Ns IV 10/10/24 13:30 999 mls/hr .Q31M RKEHA Administration Meclizine HCl 12.5 mg 10/10/24 12:56 10/10/24 13:02 Meclizine Hcl 12.5 Mg Tablet PO 10/10/24 12:57 12.5 mg ONCE ONE Administration Scopolamine 1.5 mg 10/10/24 12:56 10/10/24 13:02 Scopolamine 1.5 Mg Patch.Td.3 EAR-BEHIND 10/10/24 12:57 1.5 mg ONCE ONE Administration Medical Decision Making Medical Decision Making [facility] Narrative: Some of the workup considerations are as below, physical examination and her history is most concerning for benign positional vertigo also to the left without findings on neurologic exam to suspect central causes of dizziness such as cerebellar stroke, we will obtain blood work, ECG, we will provide gentle fluids, we will continue to monitor, did not feel further imaging such as CT or CTA indicated at this time it did not feel that this is a stroke-like presentation. 15:02 patient re-evaluated, she feels much better, we will prescribe medications that she was responsive to today, discuss her workup today with her we will be discharging Differential Diagnosis Differential Diagnoses: The differential diagnosis associated with the presentation includes Cerebellar stroke, ACS, dehydration, BPPV, Meniere's disease, electrolyte derangements, hypovolemia, syncope, presyncope Admission/Observation Consideration of admission/observation: Escalation of care including admission/observation considered Lab Data 10/10/24 13:23 10/10/24 13:23 Labs: Lab Results 10/10/24 Range/Units 13:23 WBC 10.3 (4.8-10.8) X10*3/uL RBC 4.86 (4.20-5.50) X10*6/uL Hgb 14.5 (12.0-16.0) g/dl Hct 43.3 (37.0-47.0) % MCV 89.1 (80.0-98.0) fL MCH 29.8 (27.0-33.0) pg MCHC 33.5 (31.0-35.0) g/dl RDW 12.6 (11.0-16.0) % Plt Count 320 (160-400) X10*3/uL MPV 9.1 L (9.4-12.3) fL Immature Gran % (Auto) 0.4 (0.0-0.4) % Neut % (Auto) 68.4 (45-73) % Lymph % (Auto) 25.2 (20-40) % [place] % (Auto) 3.8 (2-11) % Eos % (Auto) 1.7 (0-4) % Baso % (Auto) 0.5 (0-2) % Lymph # (Auto) 2.6 (1.2-4.9) X10*3/uL [place] # (Auto) 0.4 (0.1-1.2) X10*3/uL Eos # (Auto) 0.2 (0.0-0.4) X10*3/uL Baso # (Auto) 0.1 (0.0-0.2) X10*3/uL Abs Immat Gran (auto) 0.04 H (0.00-0.03) X10*3/uL Absolute Neuts (auto) 7.1 (2.0-8.3) x10*3/uL Absolute Nucleated RBC 0.000 (0.0-0.012) X10*3/uL Nucleated RBC % (auto) 0.0 (0.0-0.2) /100WBC Sodium 145 (135-145) mmol/L Potassium 4.1 (3.3-5.1) mmol/L Chloride 109 H (96-108) mmol/L Carbon Dioxide 28 (22-29) mmol/L Anion Gap 12 (12-20) BUN 13 (9-16) mg/dL Creatinine 0.58 (0.5-1.4) mg/dL Estim Creat Clear Calc 75.1 Estimated GFR > 60 Random Glucose 93 (60-115) mg/dL Calcium 9.3 (8.4-10.2) mg/dL Troponin I High Sens < 2.7 (<3.5-17.0) ng/L Independent Interpretation I performed an independent interpretation of an: EKG (88, otherwise normal ECG without dysrhythmia, AV aamndeep blocks or ST-T changes to suspect underlying ACS, my independent interpretation) Discharge Plan Discharge Clinical Impression: Benign paroxysmal positional vertigo Qualifiers: Laterality: left Qualified Code(s): H81.12 - Benign paroxysmal vertigo, left ear Patient Disposition: Home, Self-Care Instructions: Vertigo (ED) Additional Instructions: Evaluated with dizziness, vertigo on physical examination, received medications in the improvement, keep scopolamine patch for 3 days, we will give him a patches meclizine as needed for additional symptoms 12.5 mg every 6-8 hours, be mindful of these pills can make you dizzy then can also make your retained urine, the rest of your blood work EKG has been reassuring follow up with the PCP any issues or concerns come back to the ER Prescriptions: New scopolamine base 1 mg over 3 days patch 3 day 1 patch transdermal Q3D PRN (Reason: vertigo) 7 Days Qty: 4 0RF meclizine 12.5 mg tablet 12.5 mg PO TID PRN (Reason: vertigo) 14 Days Qty: 30 0RF No Action lisinopril 5 mg tablet 1 tab PO DAILY cholecalciferol (vitamin D3) 25 mcg (1,000 unit) capsule 25 mcg PO DAILY Print Language: [place]se
--- NOTE | 2024-10-10 12:56 | ECG_ITS ---
Test Reason : VERTIGO Blood Pressure : */* mmHG Vent. Rate : 88 BPM Atrial Rate : 88 BPM P-R Int : 184 ms QRS Dur : 76 ms QT Int : 386 ms P-R-T Axes : 13 -15 22 degrees QTcB Int : 467 ms Sinus rhythm Otherwise normal ECG When compared with ECG of 31-Jan-2021 17:38, No significant changes seen Referred By: Barak Andre Electronically Signed By: REZA WALDEN MD
[2024-10-10] MEDS: Meclizine HCl 12.5 MG TABLET PO (13:02)
[2024-10-10] MEDS: Scopolamine 1.5 MG PATCH.TD.3 EAR-BEHIND (13:02)
[2024-10-10] MEDS: 0.9 % Sodium Chloride 500 ML 999 ML IV (13:16)
[2024-10-10 13:27] LABS: MANUAL DIFF FLAG NO
[2024-10-10 13:33] LABS: Basophils Absolute Auto 0.1 X10*3/uL (0.0-0.2); Basophils Percent Auto 0.5 % (0-2); Eosinophils Absolute Auto 0.2 X10*3/uL (0.0-0.4); Eosinophils Percent Auto 1.7 % (0-4); Hematocrit 43.3 % (37.0-47.0); Hemoglobin 14.5 g/dl (12.0-16.0); Imm Gran Abs Auto 0.04 X10*3/uL (0.00-0.03); Imm Gran Pct Auto 0.4 % (0.0-0.4); Lymphocytes Absolute Auto 2.6 X10*3/uL (1.2-4.9); Lymphocytes Percent Auto 25.2 % (20-40); Mean Corpuscular HGB Conc 33.5 g/dl (31.0-35.0); Mean Corpuscular Hemoglobin 29.8 pg (27.0-33.0); Mean Corpuscular Volume 89.1 fL (80.0-98.0); Mean Platelet Volume 9.1 fL (9.4-12.3); Monocytes Absolute Auto 0.4 X10*3/uL (0.1-1.2); Monocytes Percent Auto 3.8 % (2-11); Neutrophils Absolute Auto 7.1 x10*3/uL (2.0-8.3); Neutrophils Percent Auto 68.4 % (45-73); Platelet Count 320 X10*3/uL (160-400); Red Blood Count 4.86 X10*6/uL (4.20-5.50); Red Cell Distribution Width 12.6 % (11.0-16.0); White Blood Count 10.3 X10*3/uL (4.8-10.8)
[2024-10-10 13:40] LABS: Anion Gap 12 (12-20); Blood Urea Nitrogen 13 mg/dL (9-16); Calcium 9.3 mg/dL (8.4-10.2); Carbon Dioxide 28 mmol/L (22-29); Chloride 109 mmol/L (96-108); Creatinine Clr Calc Pharmacy 75.1; Estimated Glomerular Filt Rate > 60; Glucose Random 93 mg/dL (60-115); Potassium 4.1 mmol/L (3.3-5.1); Sodium 145 mmol/L (135-145)
[2024-10-10 13:53] LABS: Troponin-I High Sensitivity < 2.7 ng/L (<3.5-17.0)
[2024-10-10 15:45] VITALS: BP 127/57; PULSE 77; RESP 12; TEMP 36.5; O2SAT 96
== END 2024-10-10 15:54 | disposition home or self-care (01) ==
PROVIDERS: Emergency Provider Emergency Medicine
DX: H81.12 Benign paroxysmal vertigo, left ear (principal); H53.8 Other visual disturbances; F17.210 Nicotine dependence, cigarettes, uncomplicated; Z79.899 Other long term (current) drug therapy
CPT/HCPCS: 36415; 80048; 84484; 85025; 93005; 99283; 99285

== ENCOUNTER → 2024-10-10 12:56 | Outpatient (BNV) | payer MEDICARE, MEDICAID, SELFPAY | PROVIDERS: Emergency Provider Emergency Medicine; Visit Provider Internal Medicine Cardiovascular Disease | DX: R42 Dizziness and giddiness (principal) | CPT/HCPCS: 93010 ==

== ENCOUNTER 2024-12-17 10:42 | Outpatient (AMB) | payer MEDICARE, MEDICAID, SELFPAY ==
[2024-12-17 10:46] VITALS: BP 157/76; PULSE 69; TEMP 37; O2SAT 98; BMI 27.1
--- NOTE | 2024-12-17 10:46 | MHC.OFFWIV ---
Intake Vital Signs 12/17/24 10:46 Height 5 ft 2 in Weight 148 lb BMI 27.1 BP 157/76 H Blood Pressure Location Rt brachial Position Sitting Pulse 69 Pulse Source Pulse Oximeter Temp 98.6 F Temp Source Oral Pulse Oximetry (%) 98 Oxygen Delivery Method Room Air Intake Visit Reasons: EP Back pain Patient Tobacco Use Status: Current everyday Tobacco user [employer] Work[employer] Required: No Is last menstrual period known: No Post menopausal: Yes Patient : No Allergies No Known Allergies (No Known Allergies*) Allergy (Verified 12/17/24 10:51) HPI HPI Comments History of Present Illness Details History - The patient is a 74-year-old female presenting with low back pain and sciatica symptoms. - Pain has been present for a week, starting in the right low back and radiating down the leg. - Difficulty sleeping due to pain; ibuprofen ineffective. - Post-surgical posture issues noted. - Smoking history present. Physical Exam General: cooperative, healthy appearing and comfortable, patient oriented x3 Head: Yes normal to inspection and Yes normocephalic General nose exam: Normal external nose present Face and sinus: Yes normal facial exam Respiratory: normal respiratory effort and able to speak in complete sentences Back/spine: cervical, thoracic and lumbar spine normal to inspection cervical ROM normal, thoracic ROM normal, lumbar ROM normal no Cervical, thoracic or lumbar spine tenderness TTP on bilateral low back into right sided buttocks Extremities: Straight leg raise test positive on right; motor strength normal bilaterally, sensation intact bilaterally PFSH Medical History Essential hypertension Tobacco use disorder Low back pain Stress incontinence of urine Hx of vertigo History of CVA (cerebrovascular accident) Wears dentures Smoker Surgical History History of bunionectomy of both great toes Hx of colonoscopy (~10/29/21) Family History Mother No problems noted. Father No problems noted. Social History Household Members: None Housing: Apartment Are you a primary healthcare insurance sales agent to a significant other at home: No Do you presently have visiting nurse or other home services: No Alcohol intake: former Patient Tobacco Use Status: Current everyday Tobacco user Tobacco use type: Cigarette Cigarettes Per Day: 12 e-Cigarette/Vaping Use: Currently Using Patient : No service: No Current occupational status: retired Cognitive needs: No Hearing needs: Yes (bilateral hearing aids) Vision needs: Yes (reading glasses) Review of Systems Const All systems reviewed & are unremarkable except as noted in HPI and below Physical Exam Vital Signs: Last Vital Signs Temp 98.6 F 12/17/24 10:46 Pulse 106 H 12/17/24 10:46 BP 157/76 H 12/17/24 10:46 Pulse Ox 98 12/17/24 10:46 Oxygen Delivery Method Room Air 12/17/24 10:46 BMI result Body Mass Index 27.1 Assessment & Plan Assessment & Plan (1) Acute low back pain with right-sided sciatica: Code(s): M54.41 - Lumbago with sciatica, right side Qualifiers: Back pain laterality: right Qualified Code(s): M54.41 - Lumbago with sciatica, right side Plan: Plan Patient was informed and verbally consented to the use of an ambient scribe for clinic note documentation during this visit. 1. Sciatica - Prednisone 40 mg daily for five days. - Muscle relaxants at bedtime using great caution at night - Ice application advised. - Physical therapy post-treatment, sent referral Orders: Orders PT Evaluation and Treatment Today M54.41 - Lumbago with sciatica, right side Medications: New cyclobenzaprine 5 mg PO Q8H PRN 10 tabs 0RF Muscle Spasm prednisone 40 mg (2 x 20 mg) PO QAM 10 tabs 0RF Coding Level of Care Code Est Pt Level 4 (18056) Diagnoses Acute right-sided low back pain with right-sided sciatica M54.41 Back pain laterality: right
== END 2024-12-17 12:07 | disposition home or self-care (01) ==
PROVIDERS: Visit Provider Physician Assistant
DX: M54.41 Lumbago with sciatica, right side (principal)

== ENCOUNTER → 2024-12-17 10:42 | Outpatient (BNVA) | payer MEDICARE, MEDICAID, SELFPAY | PROVIDERS: Visit Provider Physician Assistant | DX: M54.41 Lumbago with sciatica, right side (principal) | CPT/HCPCS: 99212 ==

== ENCOUNTER 2024-12-23 13:54 | Outpatient (AMB) | payer MEDICARE, MEDICAID, SELFPAY ==
[2024-12-23 13:58] VITALS: BP 136/70; PULSE 132; TEMP 37.3; O2SAT 94; BMI 27.1
--- NOTE | 2024-12-23 13:58 | AM.OFFWIN_ITS ---
Intake Vital Signs 12/23/24 13:58 Height 5 ft 2 in Weight 148 lb 4 oz BMI 27.1 BP 136/70 Blood Pressure Location Rt brachial Position Sitting Pulse 132 H Pulse Source Pulse Oximeter Temp 99.2 F Temp Source Oral Pulse Oximetry (%) 94 Oxygen Delivery Method Room Air Intake Visit Reasons: EP-sciatica pain Patient Tobacco Use Status: Current everyday Tobacco user Clerk Of Scales Required: No Is last menstrual period known: No Post menopausal: Yes Patient : No Allergies No Known Allergies (No Known Allergies*) Allergy (Verified 12/23/24 14:03) Do you need a note to return to daycare/school/sports/work: No HPI HPI Comments History of Present Illness Details 74 y/o Female patient who presents to [facility] with c/o Chronic lower back pain since January 2023. She did have Acute compression fracture at T12, L1, L4 in 2022. Patient had exhausted conservative therapy with persistently non-healing fractures at T12, L1 and L4. She had T12, L1, L4 kyphoplasty on 04/2023. Her pain did improve 90% after crain rgery until recently. She has been referred for Physical therapy. She was seen here 12/16 for this and was prescribed Flexeril and Prednisone. Pt was unable to obtain Flexeril since Insurance declined coverage. Reports Prednisone did not help Nothing is working, I still have severe pain and I'm unable to sleep at night . Pt asking for something stronger for her pain today. PFSH Medical History Essential hypertension Tobacco use disorder Low back pain Stress incontinence of urine Hx of vertigo History of CVA (cerebrovascular accident) Wears dentures Smoker Surgical History History of bunionectomy of both great toes Hx of colonoscopy (~10/29/21) Family History Mother No problems noted. Father No problems noted. Social History Household Members: None Housing: Apartment Are you a primary post acute care nurse practitioner to a significant other at home: No Do you presently have visiting nurse or other home services: No Alcohol intake: former Patient Tobacco Use Status: Current everyday Tobacco user Tobacco use type: Cigarette Cigarettes Per Day: 12 e-Cigarette/Vaping Use: Currently Using Patient : No service: No Current occupational status: retired Cognitive needs: No Hearing needs: Yes (bilateral hearing aids) Vision needs: Yes (reading glasses) Review of Systems Const All systems reviewed & are unremarkable except as noted in HPI and below Physical Exam Vital Signs: Last Vital Signs Temp 99.2 F 12/23/24 13:58 Pulse 132 H 12/23/24 13:58 BP 136/70 12/23/24 13:58 Pulse Ox 94 12/23/24 13:58 Oxygen Delivery Method Room Air 12/23/24 13:58 BMI result Body Mass Index 27.1 Const General: no acute distress; No comfortable Orientation/consciousness: patient oriented x3 Back/Spine/Pelvis Back: back tenderness Thoracic/Lumbar Spine: pain with thoraco-lumbar ROM, thoraco-lumbar spasm, thoracic spinal tenderness and lumbar spinal tenderness Neuro General: patient oriented x3 and moves all extremities Psych Speech and movement: Normal speech and movement present Assessment & Plan Assessment & Plan (1) Back pain: Code(s): M54.9 - Dorsalgia, unspecified Qualifiers: Back pain location: low back pain Chronicity: chronic Back pain laterality: midline Sciatica presence: with sciatica Sciatica laterality: bilateral sciatica Qualified Code(s): M54.41 - Lumbago with sciatica, right side; M54.42 - Lumbago with sciatica, left side; G89.29 - Other chronic pain Plan: Continue with Physical therapy Ordered NSAIDs and Acetaminophen for pain relief. Ice/Hot Placed referral to Pain management. Orders: Referrals Pain Management Referral M54.9 - Dorsalgia, unspecified, S22.080A - Wedge compression fracture of T11-T12 vertebra, initial encounter for closed fracture Medications: New ibuprofen 800 mg PO Q8H 30 tabs 0RF S22.080A - Wedge compression fracture of T11-T12 vertebra, initial encounter for closed fracture acetaminophen 1,000 mg (2 x 500 mg) PO Q6H PRN 30 caps 0RF pain S22.080A - Wedge compression fracture of T11-T12 vertebra, initial encounter for closed fracture Coding Level of Care Code Est Pt Level 4 (34909) Diagnoses Chronic midline low back pain with bilateral sciatica M54.41; M54.42; G89.29 Back pain location: low back pain Chronicity: chronic Back pain laterality: midline Sciatica presence: with sciatica Sciatica laterality: bilateral sciatica Time Spent (min) 20
== END 2024-12-23 14:28 | disposition home or self-care (01) ==
PROVIDERS: Visit Provider Nurse Practitioner Family
DX: M54.41 Lumbago with sciatica, right side (principal); M54.42 Lumbago with sciatica, left side; G89.29 Other chronic pain

== ENCOUNTER → 2024-12-23 13:54 | Outpatient (BNVA) | payer MEDICARE, MEDICAID, SELFPAY | PROVIDERS: Visit Provider Nurse Practitioner Family | DX: M54.41 Lumbago with sciatica, right side (principal); M54.42 Lumbago with sciatica, left side; G89.29 Other chronic pain | CPT/HCPCS: 99212 ==

== ENCOUNTER 2024-12-26 08:55 | Emergency (ER) | payer MEDICARE, MEDICAID, SELFPAY ==
--- NOTE | ~2024-12-26 | XR_ITS ---
EXAMINATION: XR LUMBAR SPINE 2-3 VIEWS HISTORY: pain x 3 weeks COMPARISON: Comparison is made with the prior examination dated 05/02/2023. FINDINGS: AP, lateral, and coned down views of the lumbar spine are submitted. The bones are osteopenic. Again seen are severe compression deformities of T12 and L1, similar in appearance to the prior study. There is a moderate compression deformity of L2 with interval loss of height since the prior study. The patient is status post L4 kyphoplasty. Mild loss of height of L5 is unchanged. There is moderate degenerative disc disease with disc space narrowing and osteophyte formation. There is no spondylolisthesis. There is osteoarthritis of the facet joints. There is calcification of the abdominal aorta. XR/XR lumbar spine 2-3V IMPRESSION: Osteopenia. Multiple vertebral compression fractures as described. Electronically signed by: Mark Anthony García MD 12/26/2024 10:19 AM EDT
--- NOTE | 2024-12-26 09:03 | ED.GENADULT ---
HPI - General Adult General Chief complaint: Back Pain/Injury Stated complaint: BACK PAIN,H/O SCIATICA PER EMS Time Seen by Provider: 12/26/24 08:59 Source: patient, EMS, RN notes reviewed and old records reviewed Mode of arrival: EMS Limitations: no limitations History of Present Illness ED Provider: Be HPI narrative: Patient is a 74-year-old female with history of HTN, tobacco use disorder, CVA, chronic lower back pain since January 2023 presenting to the ED with complaint of exacerbation of lower back pain for the past few weeks. Seen at walk-in on 12/17, prescribed prednisone and flexeril and referred to physical therapy, but was unable to fill flexeril due to insurance issue. Returned to walk-in on 12/23 for ongoing pain, advised Tylenol and ibuprofen, and referred to pain management. Patient states pain mgmt appointment is on the , did not attempt to make any PT appointments, states I can't do that. Reports radiation of pain down right anterior upper leg to above knee. Denies saddle anesthesia or bowel or bladder incontinence, denies fevers, chills. History of compression fxs to T12, L1, L4 in 2022 with subsequent kyphoplasty. Denies any new or different symptoms since onset. History of falls, lives alone but states her daughter comes over to help her. complaint: back pain Onset (ago): week(s) Related Data Home Medications ?Medication ?Instructions ?Recorded ?Confirmed lisinopril 5 mg tablet 1 tab PO DAILY 10/22/21 11/17/23 cholecalciferol (vitamin D3) 25 25 mcg PO DAILY 09/16/24 mcg (1,000 unit) capsule Previous Rx's ?Medication ?Instructions ?Recorded acetaminophen 500 mg capsule 1,000 mg (2 x 500 mg) PO Q6H PRN 12/23/24 pain #30 caps ibuprofen 800 mg tablet 800 mg PO Q8H #30 tabs 12/23/24 lidocaine 5 % topical patch 1 patch topical DAILY #15 ea 12/26/24 Allergies Allergy/AdvReac Type Severity Reaction Status Date / Time No Known Allergies (No Known Allergy Verified 12/26/24 09:11 Allergies*) Review of Systems Review of Systems: As per HPI Yes all other systems are reviewed and are negative Constitutional: Constitutional: Reports as per HPI PMFSH Past Medical History Medical History Essential hypertension Tobacco use disorder Low back pain Stress incontinence of urine Hx of vertigo History of CVA (cerebrovascular accident) Wears dentures Smoker Surgical History History of bunionectomy of both great toes Hx of colonoscopy (~10/29/21) Family History Family History Mother No problems noted. Father No problems noted. Social History Social History Household Members: None Housing: Apartment Are you a primary care connector to a significant other at home: No Do you presently have visiting nurse or other home services: No Alcohol intake: former Patient Tobacco Use Status: Current everyday Tobacco user Tobacco use type: Cigarette Cigarettes Per Day: 12 Smoked in Last 30 Days: Yes e-Cigarette/Vaping Use: Currently Using Use of substances other than those prescribed or required for medical reasons: No Advance Directives: No Advance Directives Information Provided: Yes Do you have a plan to hurt others: No Plan service: No Current occupational status: retired Cognitive needs: No Hearing needs: Yes (bilateral hearing aids) Vision needs: Yes (reading glasses) Physical Exam ED Vital Signs: Vital Signs - 24 hr 12/26/24 09:05 12/26/24 09:22 Temperature 98.6 F 98.6 F Pulse Rate 103 H 103 H Respiratory Rate 16 16 Blood Pressure 156/79 H 156/79 H Pulse Oximetry 98 98 Oxygen Delivery Method Room Air Room Air BMI result Body Mass Index 26.3 Vital signs have been reviewed and appear to be correct. Blood pressure normal. Heart rate normal. Respiratory rate normal. Temperature normal. Oxygen saturation normal. Const General: cooperative, healthy appearing and no acute distress Orientation/consciousness: oriented to person, oriented to place, oriented to time and patient oriented x3 Limitations: no limitations HENMT Head: Yes normocephalic and Yes atraumatic Ears: external ears normal General nose exam: Normal external nose present Face and sinus: Yes face symmetric Mouth: oropharynx normal and moist mucous membranes Throat: Yes uvula midline Eyes Pupils: Equal, round and reactive pupils present Neck Neck: Yes normal visual inspection and Yes supple Resp Effort & Inspection: normal respiratory effort and able to speak in complete sentences Auscultation: clear to auscultation bilaterally Cardio Rate: regular rate Rhythm: regular rhythm Heart sounds: S1 normal heart sound present and S2 normal heart sound present GI Palpation (GI): Soft to palpation and nontender Auscultation: normoactive bowel sounds General: Yes no CVA tenderness Back/Spine/Pelvis Back: no CVA tenderness Thoracic/Lumbar Spine: Thoracic/lumbar spine scar(s), straight leg raise negative bilaterally, pain with thoraco-lumbar ROM, thoraco-lumbar ROM limited, No thoracic spinal tenderness and No lumbar spinal tenderness Skin General skin exam: elasticity normal and turgor normal Neuro General: oriented to person, oriented to place, oriented to time, patient oriented x3, moves all extremities, no focal motor deficits and CN's II-XI intact bilaterally Cranial nerves: Yes Equal, round and reactive pupils present Cognition (Neuro): normal cognition Extrem General: Yes full ROM, Yes no pedal edema and Yes no calf tenderness Psych Mental Status: mental status grossly normal Affect: normal affect Thought process: Normal thought process present Medications Administered Discontinued Medications Generic Name Dose Route Start Last Admin Trade Name Burakq PRN Reason Stop Dose Admin Diazepam 2 mg 12/26/24 09:33 12/26/24 09:43 Diazepam 2 Mg Tablet PO 12/26/24 09:34 2 mg ONCE ONE Administration Ketorolac Tromethamine 30 mg 12/26/24 09:33 12/26/24 09:43 Ketorolac Tromethamine 30 Mg/Ml Vial IM 12/26/24 09:34 30 mg ONCE ONE Administration Medical Decision Making Medical Decision Making [facility] Narrative: Patient is a 74-year-old female with history of HTN, tobacco use disorder, CVA, chronic lower back pain since January 2023 presenting to the ED with complaint of exacerbation of lower back pain for the past few weeks. On exam patient is awake, A+Ox3, VS WNL, afebrile, normal neurological exam without focal deficits, physical exam findings as above. Given reported symptoms and physical exam findings, initial differential includes but is not limited to acute on chronic pain, lumbar strain, lumbar radiculopathy, degenerative disc disease, disc herniation, spinal stenosis, spondylosis. Do not suspect malignancy/mass, SEA, cauda equina/cord compression. Patient declining CT imaging but will allow x-ray. X-ray lumbar spine notable for osteopenia and multiple vertebral compression fractures similar to prior exams. My interpretation is in agreement with the radiologist's interpretation. Discussed pain management approach with patient, noting that due to her age, history of falls, and chronicity of pain, the best option is to continue with Tylenol and ibuprofen. Offered PT eval for possible STR if patient felt unable to return home. Patient declined this, states that she has help from her daughter and would prefer to return home. Will add topical lidocaine patches. Advised patient to keep appointment with pain management on the . Also encouraged patient to schedule physical therapy, discussed with her that they will proceed at a pace she is able to participate with. Return precautions discussed. Patient verbalized understanding of and agreement with plan. Differential Diagnosis Differential Diagnoses: The differential diagnosis associated with the presentation includes As per [facility] Admission/Observation Consideration of admission/observation: Escalation of care including admission/observation considered Patient would have been admitted to the hospital had their clinical presentation warranted hospital admission. Independent Interpretation I performed an independent interpretation of an: Plain X-Ray Interpretation: X-ray lumbar spine notable for osteopenia and multiple vertebral compression fractures similar to prior exams. Radiology Impression Discussion of test interpretation with radiology: I have reviewed the radiologist's reading. Radiologist Impression: XR/XR lumbar spine 2-3V IMPRESSION: Osteopenia. Multiple vertebral compression fractures as described. External Record Review External record reviewed: Inpatient record, Office record and Outpatient record Prescription Management I considered prescription management with: Pain Medication Discharge Plan Discharge Clinical Impression: Acute on chronic low back pain Patient Disposition: Home, Self-Care Instructions: Vertebral Compression Fracture (ED), Chronic Pain (ED), Non-pharmacological Pain Management Therapies for Adults (ED) Additional Instructions: You were evaluated in the emergency department today for low back pain. Your x-ray continues to show vertebral compression fractures similar to in the past. Your pain improved with medications given in the emergency department. We recommend that you continue to use Tylenol and ibuprofen. We are sending a prescription for topical lidocaine patches that you can wear for up to 12 hours in a 24 hour period. You should wear these 12 hours on, 12 hours off. Do not apply heat directly over the patches. Keep your appointment with pain management on the . We also recommend that you follow-up with scheduling physical therapy as previously recommended as this would likely improve your symptoms. Return to the emergency department if you develop any numbness or tingling to her groin area, loss of bowel or bladder control, new weakness, numbness or tingling or any other new or concerning symptoms. Prescriptions: New lidocaine 5 % adhesive patch,medicated 1 patch topical DAILY Qty: 15 0RF Rx Instructions: leave on most painful area for up to 12 hrs No Action lisinopril 5 mg tablet 1 tab PO DAILY cholecalciferol (vitamin D3) 25 mcg (1,000 unit) capsule 25 mcg PO DAILY ibuprofen 800 mg tablet 800 mg PO Q8H Qty: 30 0RF acetaminophen 500 mg capsule 1,000 mg PO Q6H PRN (Reason: pain) Qty: 30 0RF Print Language: Malawian
[2024-12-26 09:05] VITALS: BP 147/84; BP 156/79; PULSE 103; PULSE 96; RESP 16; TEMP 37; O2SAT 94; O2SAT 98; BMI 26.3
[2024-12-26 09:22] VITALS: BP 156/79; PULSE 103; RESP 16; TEMP 37; O2SAT 98
[2024-12-26 10:30] VITALS: BP 129/79; PULSE 99; RESP 14; O2SAT 95
--- OUTSIDE RECORDS SUMMARY | 2024-12-26 10:58 | XMS_ITS | Patient Health Record ---
Author Organization [facility] Address [address] [place] [address] Care Team Providers Care Skin Care Specialist Name Role Phone Kristin (RETIRED) Sb MINOR Primary Care Provide r Unavailable Mark Anthony Pineda Unavailable [phone] Allergies No Known Allergies Reason For Referral [...] Problem Status W/U Status Risk Notes Problem 141440020 Encounter for screening for malignant neoplasm of colon (Z12.11) Active confirmed Problem 903795898 History of adenomatous polyp of colon (Z86.010) Active confirmed Problem Screening for malignant neoplasm of rectum (336423974) Encounter for screening for malignant neoplasm of rectum (Z12.12) Active confirmed Problem 68617969 Preprocedural examination (Z01.818) Active confirmed Problem Family History of Cancer of Colon (Situation) (119640561) Family history of colon cancer (Z80.0) Active confirmed Problem Diverticulosis of colon (894278468) Diverticulosis of colon (K57.30) Active confirmed Plan Of Treatment Pending Test Test Name Order Date Pathology 10/29/2021 Future Test Test Name Order Date COLONOSCOPY 11/24/2015 COLONOSCOPY 09/30/2021 Insurance Providers Payer Name Payer Address Payer Phone Subscriber Number Group Number Insured Name Patient Relationship to Insured Coverage Start Date Coverage End Date MEDICARE OF [place] [address] [place] [id number] RENATA BOYD Self - patient is the insured MEDICAID OF [facility] [address] [place] [address] [id number] RENATA BOYD Self - patient is the insured Medical (General) History Medical History History ICD Code Neg. colonoscopy 2005; colon oscopy in 12/2010 with a small tubular adenoma and mild sigmoid diverticulosis Denies [place],DM,CVA,Lung disease,renal dise ase HTN Negative colonoscopy in 02/2016 Surgical History Surgery Date(Month/Year) Appendectomy YOLETTE Foot surgery Benign breast biopsies
[2024-12-26 11:11] VITALS: BP 120/73; PULSE 99; RESP 16; TEMP -17.7; TEMP 0; O2SAT 93
== END 2024-12-26 11:12 | disposition home or self-care (01) ==
PROVIDERS: Emergency Provider Emergency Medicine
DX: M54.50 Low back pain, unspecified (principal); I10 Essential (primary) hypertension
CPT/HCPCS: 72100; 96372; 99284; J1885

== ENCOUNTER → 2024-12-26 09:46 | Outpatient (BNV) | payer MEDICARE, MEDICAID, SELFPAY | PROVIDERS: Emergency Provider Emergency Medicine; Visit Provider Radiology Diagnostic Radiology | DX: M54.50 Low back pain, unspecified (principal) | CPT/HCPCS: 72100 ==

== ENCOUNTER 2025-01-10 11:09 | Outpatient (AMB) | payer MEDICARE, MEDICAID, SELFPAY ==
--- NOTE | 2025-01-10 11:40 | A.OFFVIS_ITS ---
Vital Signs 01/10/25 11:42 Height 5 ft 1 in Weight 145 lb BMI 27.4 BP 175/85 H Blood Pressure Location Lt brachial Position Sitting Respiration 17 Pulse 118 H Pulse Source Pulse Oximeter Pulse Oximetry (%) 95 Oxygen Delivery Method Room Air Intake Visit Reasons: Dorsalgia MONIQUE 05/19/23 Residential Appliance Repair Technician Required: No Accompanied by: Family/Other Allergies No Known Allergies (No Known Allergies*) Allergy (Verified 01/10/25 11:43) Medication List - Last Reconciled 01/10/25 by Alicia Castillo LPN acetaminophen 1,000 mg (2 x 500 mg) PO Q6H PRN cholecalciferol (vitamin D3) 25 mcg PO DAILY ibuprofen 800 mg PO Q8H lisinopril 1 tab PO DAILY HPI HPI Dorsalgia MONIQUE 05/19/23: Details: History of Present Illness The patient is a 74-year-old female presenting with low back pain. She was last seen in May 2021 for a compression fracture treated with kyphoplasty. Recently, she has been experiencing significant pain at night, particularly on one side, with associated heaviness and involuntary movements in her leg, suggestive of restless legs syndrome. The patient reports sleeping only two to three hours per night due to the discomfort. She is not currently taking any medications for osteoporosis, despite previous recommendations to start Fosamax. She has been taking vitamin D as her only supplement. The patient has a history of osteoporosis, which has contributed to her recurrent fractures. She was advised to take Fosamax but has not been consistent with this medication, possibly due to a lapse in follow-up care. There is a concern for new or worsening fractures, as indicated by recent evaluations at a walk-in clinic. Pain Description - Onset: Significant pain at night, particularly on one side - Quality: Heaviness and involuntary movements in the leg - Location: Primarily on one side, affecting the leg - Exacerbating factors: Nighttime - Interference: Sleep disturbance, only two to three hours of sleep per night Physical Exam - Appears afebrile. - Alert and oriented. - Mood and affect appropriate. - Follows and participates in conversation appropriately. - TTP overlying lumbar spinous processes. Results Pain Management - Affect: Pain significantly impacts sleep, leading to only two to three hours of rest per night - Analgesia: No current pain medications; gabapentin to be started - Adverse Effects: None reported from current medications - Activities of Daily Living: Pain interferes with sleep and possibly daily act ivities due to fatigue - Aberrant Drug Related Behaviors: None reported PFSH Medical History Essential hypertension Tobacco use disorder Low back pain Stress incontinence of urine Hx of vertigo History of CVA (cerebrovascular accident) Wears dentures Smoker Surgical History History of bunionectomy of both great toes Hx of colonoscopy (~10/29/21) Family History Mother No problems noted. Father No problems noted. Social History Household Members: None Housing: Apartment Are you a primary childcare teacher to a significant other at home: No Do you presently have visiting nurse or other home services: No Alcohol intake: former Patient Tobacco Use Status: Current everyday Tobacco user Tobacco use type: Cigarette Cigarettes Per Day: 12 e-Cigarette/Vaping Use: Currently Using service: No Current occupational status: retired Cognitive needs: No Hearing needs: Yes (bilateral hearing aids) Vision needs: Yes (reading glasses) Physical Exam Vital Signs: Last Vital Signs Pulse 118 H 01/10/25 11:42 Resp 17 01/10/25 11:42 BP 175/85 H 01/10/25 11:42 Pulse Ox 95 01/10/25 11:42 Oxygen Delivery Method Room Air 01/10/25 11:42 BMI result Body Mass Index 27.4 Assessment & Plan Assessment & Plan (1) Acute low back pain with right-sided sciatica: Code(s): M54.41 - Lumbago with sciatica, right side Category: Medical Qualifiers: Back pain laterality: right Qualified Code(s): M54.41 - Lumbago with sciatica, right side Plan Plan Patient was informed and verbally consented to the use of an ambient scribe for clinic note documentation during this visit. 1. Low Back Pain - Plan to obtain an MRI of the lumbar spine to assess for nerve compression or new fractures. - Initiate gabapentin to help with pain management and improve sleep quality. 2. Compression Fracture - Evaluate for new or worsening fractures through imaging. - Discussed the importance of osteoporosis management to prevent further fractures. 3. Osteoporosis - Reinforce the need to restart Fosamax or a similar medication for osteoporosis management. - Encourage follow-up with primary care to ensure medication adherence and management. 4. Restless Legs Syndrome - Gabapentin prescribed to alleviate symptoms and improve sleep. Discussion Notes I discussed with the patient the need for an MRI of the lumbar spine to evaluate for possible nerve compression or new fractures. We also talked about starting gabapentin to manage her pain and improve sleep quality. I emphasized the importance of osteoporosis management and the need to restart Fosamax or a similar medication. The patient was advised to follow up with her primary care provider to ensure medication adherence and management of her osteoporosis. Patient Instructions - Start taking gabapentin at night to help with pain and sleep. - Schedule an MRI of the lumbar spine as soon as possible. - Follow up with your primary care provider to discuss restarting Fosamax. - Monitor for any side effects from gabapentin and report them to your doctor. Orders: Orders MR lumbar spine wo con 01/10/25 M54.41 - Lumbago with sciatica, right side Medications: New gabapentin 300 mg PO BID 60 caps 0RF Coding Level of Care Code Est Pt Level 4 (57979) Diagnoses Acute right-sided low back pain with right-sided sciatica M54.41 Back pain laterality: right
[2025-01-10 11:42] VITALS: BP 175/85; PULSE 118; RESP 17; O2SAT 95; BMI 27.4
== END 2025-01-10 12:26 | disposition home or self-care (01) ==
LOC: HO.PMC 11:10
PROVIDERS: Visit Provider Internal Medicine
DX: M54.41 Lumbago with sciatica, right side (principal)
CPT/HCPCS: 99214

== ENCOUNTER → 2025-01-10 11:09 | Outpatient (BNVA) | payer MEDICARE, MEDICAID, SELFPAY | PROVIDERS: Visit Provider Internal Medicine | DX: M54.41 Lumbago with sciatica, right side (principal) | CPT/HCPCS: 99212 ==

== ENCOUNTER 2025-01-22 13:59 | Outpatient (AMB) | payer MEDICARE, MEDICAID, SELFPAY ==
--- NOTE | 2025-01-22 14:01 | MHC.PC.OV ---
Vital Signs 01/22/25 14:02 Height 5 ft 1 in Weight 144 lb BMI 27.2 BP 140/76 H Blood Pressure Location Rt brachial Position Sitting Pulse 117 H Pulse Source Pulse Oximeter Temp 97.7 F Temp Source Temporal Artery Scan Pulse Oximetry (%) 98 Oxygen Delivery Method Room Air Intake Visit Reasons: bad back needs to move to 1st floor, form fill out Train Conductor Required: No Accompanied by: Self / Same As Patient Allergies No Known Allergies (No Known Allergies*) Allergy (Verified 01/22/25 14:02) Tobacco use date assessed: 01/22/25 Fall risk assessment: No Falls in past year Last assessed Fall Risk: 01/22/25 Dental Screening Dental Screen Date: 01/22/25 Did you have a dental visit in the last 12 months?: Yes Did you have a dental problem in the last 6 months where you did not have access to dental care?: No HPI HPI Comments History of Present Illness Details The patient is a 74-year-old female presenting with acute back pain and associated symptoms. The issue began when the patient experienced severe, debilitating pain that resulted in her being transported to the hospital via ambulance. The healthcare providers performed an x-ray, and she was advised regarding the potential need for further imaging, specifically an MRI, which is scheduled for an upcoming Monday. Her acute back pain is located primarily in the lower back and buttocks, with the patient assigning a severity of 10 out of 10. The pain is accompanied by sensations brendon to needles traversing her left leg, indicating possible bilateral lower extremity radiculopathy. She reports that taking gabapentin at night has notably alleviated the nocturnal intensity of her symptoms. Prior to this episode, she underwent back surgery on May 12, 2023. Post-surgically, she consulted her surgeon, and an MRI was recommended to evaluate further. The patient's symptoms once led her to believe the pain might be due to a ?sad? state, resulting in her immobility. She also experiences uncontrollable urinary frequency, attributing it to a leaky bladder condition rather than an emergent concern. The osteoporotic status was previously identified via a bone scan. The patient attributes her current heightened pain levels and medical concerns to the ongoing temporal burden from residing on the third floor, in which complexity too arises due to her diagnosed osteoporosis. Additionally, she acknowledges persistent smoking habits despite awareness of its deleterious impact on bone strength. Medical History: - Osteoporosis - Essential hypertension - Back pain - Chronic smoking history Surgical History: - Back surgery on May 12, 2023 Medications: - Gabapentin (for nerve pain) - Tylenol (for daytime pain management) - Alendronate (for osteoporosis) - Lisinopril 5 mg (for hypertension) - Vitamin D supplement - Tums (for heartburn) Diagnostic Results: - X-ray performed on the back (results discussed with patient) - Bone scan dated 2019 indicating osteoporosis Social: - Resides in a multi-story apartment, seeking relocation to a lower floor. - Smoking history of over 20 years, currently smoking over a pack a day. - Reports no exercise or weight management details discussed PFSH Medical History Osteoporosis Essential hypertension Tobacco use disorder Low back pain Stress incontinence of urine Hx of vertigo History of CVA (cerebrovascular accident) Wears dentures Smoker Surgical History History of bunionectomy of both great toes Hx of colonoscopy (~10/29/21) Family History Mother No problems noted. Father No problems noted. Social History Household Members: None Housing: Apartment Are you a primary ambulatory care coordinator to a significant other at home: No Do you presently have visiting nurse or other home services: No Alcohol intake: former Patient Tobacco Use Status: Current everyday Tobacco user Tobacco use type: Cigarette Cigarettes Per Day: 12 e-Cigarette/Vaping Use: Currently Using service: No Current occupational status: retired Cognitive needs: No Hearing needs: Yes (bilateral hearing aids) Vision needs: Yes (reading glasses) Questionnaire PHQ-9 Over the last 2 weeks, how often have you been bothered by any of the following problems? 1. Little interest or pleasure in doing things: not at all 2. Feeling down, depressed, or hopeless: nearly every day 3. Trouble falling or staying asleep, or sleeping too much: not at all 4. Feeling tired or having little energy: not at all 5. Poor appetite or overeating: not at all 6. Feeling bad about yourself - or that you are a failure or have let yourself or your family down: not at all 7. Trouble concentrating on things, such as reading the newspaper or watching television: not at all 8. Moving or speaking so slowly that other people could have noticed. Or the opposite - being so fidgety or restless that you have been moving around a lot more than usual: not at all 9. Thoughts that you would be better off or of hurting yourself in some way: not at all Total score: 3 Source: Developed by Drs. Mark Anthony Messer, Arianna Luna, Panfilo Suggs and colleagues, with an educational minoo from [facility]. Thrive Questionnaire Date Thrive assessed: 01/22/25 I am a: Patient Within the past 12 months, did the food you bought not last and you didn't have the money to get more?: Never true Within the past 12 months, did you worry whether your food would run out before you got money to buy more?: Never true Do you have trouble paying for medicines?: No Do you have trouble getting transportation to medical appointments?: No Do you have trouble paying your heating and electricity bill?: No Do you have trouble taking care of your child, family member or friend?: No Do you have trouble with day-to-day activities such as bathing, preparing meals, shopping, managing finances, etc.?: No Are you currently unemployed and looking for a job?: No Are you interested in more education?: No THRIVE Score: 0 AUDIT C Alcohol Use Questionnaire (AUDIT-C) 1. How often do you have a drink containing alcohol?: Never 3. How often do you have six or more drinks on one occasion?: Never Total Score: 0 SWAPNA-7 AMB Questionnaire SWAPNA-7 Date SWAPNA - 7 assessed: 01/22/25 Feeling nervous, anxious, or on edge: 0 = Not at all Not being able to stop or control worryin = Not at all Worrying too much about different things: 0 = Not at all Trouble relaxin = Not at all Being so restless that it is hard to sit still: 0 = Not at all Becoming easily annoyed or irritable: 0 = Not at all Feeling afraid as if something awful might happen: 0 = Not at all Total SWAPNA-7 score (0-4 normal; 5-9 mild; 10-14 moderate; 15-21 severe): 0 Source: Developed by Drs. Mark Anthony Messer, Arianan Luna, Panfilo Suggs and colleagues, with an educational minoo from [facility]. Review of Systems Const Details: - Musculoskeletal: Reports acute lower back pain and bilateral radiculopathy with needles sensation in the left leg. - Neurological: No balance impairments reported. - Renal/Urinary: Reports urinary incontinence. - Cardiovascular: Denies chest pain. - Gastrointestinal: Reports heartburn, denies nausea and vomiting. - Respiratory: Denies respiratory symptoms. All systems reviewed & are unremarkable except as reviewed in HPI and above Physical exam (Primary Care) Vital Signs: Last Vital Signs Temp 97.7 F 01/22/25 14:02 Pulse 117 H 01/22/25 14:02 BP 140/76 H 01/22/25 14:02 Pulse Ox 98 01/22/25 14:02 Oxygen Delivery Method Room Air 01/22/25 14:02 BMI result Body Mass Index 27.2 Tobacco/Smoking Status: Tobacco use Status Tobacco use date assessed 01/22/25 01/22/25 14:03 Patient Tobacco Use Status Current everyday Tobacco 01/22/25 14:03 Tobacco use type Cigarette 01/22/25 14:03 e-Cigarette/Vaping Use Currently Using 01/22/25 14:03 Discussed ill events of nicotine and worsneing osteoposrosis, lung cancer Are you ready to quit: No Relapse Prevention: discussed the importance of a supportive environment and weight gain after smoking is common Number of minutes spent counselin CPT code: 47807 - Greater than 10 minutes PHQ-9: PHQ-9 Score PHQ-9: Total score 3 01/22/25 14:12 Thrive Assessment: Date of Thrive Assessment Date Thrive assessed 01/22/25 01/22/25 14:03 Const Other: General: +Alert and oriented, Well nourished, No acute distress. Eye: Pupils are equal, round and reactive to light, Intact accommodation, Extraocular movements are intact, Normal conjunctiva, Vision unchanged. HENT: Normocephalic, Atraumatic, Tympanic membranes are clear, Normal hearing, Oral mucosa is moist, No pharyngeal erythema, Ear canals patent. Respiratory: Lungs CTA bilaterally, No wheeze, Respirations are non-labored. Cardiovascular: Regular rate, Regular rhythm, S1 auscultated, S2 auscultated, No murmur, Good pulses equal in all extremities, Normal peripheral perfusion, No edema. Gastrointestinal: Soft, Non-tender, Non-distended, Normal bowel sounds, No organomegaly. Musculoskeletal: Normal range of motion, Normal strength, No tenderness, No swelling, No deformity, Short gait, Moves feet very slowly. Integumentary: Warm, Dry, Dailey, Intact. Neurologic: Alert, Oriented, Normal sensory, Normal motor function, No focal defects, Cranial Nerves II-XII are grossly intact, Normal deep tendon reflexes. Psychiatric: Cooperative, Appropriate mood & affect, Normal judgment. Coding Level of Care Code Est Pt Level 4 (58593) Est Pt Prev Care >65y(71648) Diagnoses Essential hypertension I10 Acute right-sided low back pain with right-sided sciatica M54.41 Back pain laterality: right Tobacco use disorder F17.200 Age-related osteoporosis with current pathological fracture with routine healing, subsequent encounter M80.00XD Osteoporosis type: age-related Presence of current pathological fracture: with current pathological fracture Encounter type: subsequent encounter Fracture healing: with routine healing Additional Codes Vital Signs *Quality* - CPT code: 16956 - Greater than 10 minutes ([id number]) Assessment & Plan Assessment & Plan (1) Essential hypertension: Comment: - Encouraged regular monitoring of blood pressure at home. - Reinforced adherence to lisinopril 5 mg. Code(s): I10 - Essential (primary) hypertension Category: Medical (2) Acute low back pain with right-sided sciatica: Comment: - Have advised continuation and monitoring of gabapentin for controlling nerve pain, scheduling MRI to evaluate etiology. - Encouraged following surgeon?s recommendations and ensuring follow-up with pain management. Code(s): M54.41 - Lumbago with sciatica, right side Category: Medical Qualifiers: Back pain laterality: right Qualified Code(s): M54.41 - Lumbago with sciatica, right side (3) Tobacco use disorder: Comment: - Over 20PPD - Strongly reinforced the need to stop quit and given her underlying osteoporosis, risk of malignacy - Offered NRT but declined. Code(s): F17.200 - Nicotine dependence, unspecified, uncomplicated Category: Medical (4) Osteoporosis: Comment: - Discussed continuation with alendronate and importance of adherence. - Scheduled follow-up bone scan ordered to assess bone health status. Code(s): M81.0 - Age-related osteoporosis without current pathological fracture Category: Medical Qualifiers: Osteoporosis type: age-related Presence of current pathological fracture: with current pathological fracture Encounter type: subsequent encounter Fracture healing: with routine healing Qualified Code(s): M80.00XD - Age-related osteoporosis with current pathological fracture, unspecified site, subsequent encounter for fracture with routine healing Plan: Health: - Emphasized smoking cessation due to its impact on osteoporosis and general health deterioration. - Scheduled lung cancer screening due to extensive smoking history. - Scheduled bone scan due to existing osteoporosis. Plan During our visit, I thoroughly discussed the implications of continued smoking, especially regarding its contribution to osteoporosis and potential for fractures. The patient has been advised on the necessity of addressing her hypertension and the need for regular monitoring. Continuing her current medication regiment was proposed as optimal. Consent for MRI was discussed to further investigate her back pain. Her osteoporosis requires sustained management through alendronate, and adherence has been reinforced. Additionally, the importance of initiating home blood pressure monitoring was emphasized, ensuring her home assessments align with clinical values. Future consultations and potential treatments were also indicated for any exacerbated symptoms in osteoporosis and radicular pain. Necessary documentation for housing-assisted relocation was addressed, understanding her need for first-floor accommodation. Orders: Orders XR DEXA axial skeleton Today M54.41 - Lumbago with sciatica, right side, M81.0 - Age-related osteoporosis without current pathological fracture Referrals Lung Cancer Screening Referral F17.200 - Nicotine dependence, unspecified, uncomplicated Patient Instructions: - Continue taking medications as prescribed. - Monitor blood pressure at home regularly. - Attend the scheduled MRI for back pain evaluation. - Continue using Tums as needed for heartburn. - Adhere to weekly alendronate regiment. - Discussed stopping smoking due to linked health risks. - Obtain a blood pressure device from a pharmacy for home use.
[2025-01-22 14:02] VITALS: BP 140/76; PULSE 117; TEMP 36.5; O2SAT 98; BMI 27.2
== END 2025-01-22 14:17 | disposition home or self-care (01) ==
LOC: HO.HMCHD 13:59
PROVIDERS: PCP Student in an Organized Health Care Education/Training Program; Visit Provider Student in an Organized Health Care Education/Training Program
DX: Z00.00 Encounter for general adult medical examination without abnormal findings (principal); I10 Essential (primary) hypertension; M54.41 Lumbago with sciatica, right side; F17.210 Nicotine dependence, cigarettes, uncomplicated; M80.00XD Age-related osteoporosis with current pathological fracture, unspecified site, subsequent encounter for fracture with routine healing

== ENCOUNTER → 2025-01-22 13:59 | Outpatient (BNVA) | payer MEDICARE, MEDICAID, SELFPAY | PROVIDERS: PCP Student in an Organized Health Care Education/Training Program; Visit Provider Student in an Organized Health Care Education/Training Program | DX: M54.41 Lumbago with sciatica, right side (principal); I10 Essential (primary) hypertension; M80.00XD Age-related osteoporosis with current pathological fracture, unspecified site, subsequent encounter for fracture with routine healing; F17.200 Nicotine dependence, unspecified, uncomplicated; Z79.899 Other long term (current) drug therapy; Z71.6 Tobacco abuse counseling; Z13.30 Encounter for screening examination for mental health and behavioral disorders, unspecified; Z13.39 Encounter for screening examination for other mental health and behavioral disorders | CPT/HCPCS: 96127; 99212; 99397; 99407 ==

== ENCOUNTER → 2025-01-25 13:39 | Outpatient (BNV) | payer MEDICARE, MEDICAID, SELFPAY | PROVIDERS: Visit Provider Radiology Diagnostic Radiology | DX: M80.88XA Other osteoporosis with current pathological fracture, vertebra(e), initial encounter for fracture (principal) | CPT/HCPCS: 72148 ==

== ENCOUNTER 2025-01-25 13:50 | Outpatient (REF) | payer MEDICARE, MEDICAID, SELFPAY | END 2025-01-25 13:51 | disposition home or self-care (01) | LOC: HO.MRI 13:50 | PROVIDERS: Visit Provider Internal Medicine | DX: M54.41 Lumbago with sciatica, right side (principal) | CPT/HCPCS: 72148 ==

== ENCOUNTER 2025-03-05 09:21 | Outpatient (AMB) | payer MEDICARE, MEDICAID, SELFPAY ==
--- NOTE | 2025-03-05 09:30 | MHC.OFFVIS ---
Vital Signs 03/05/25 09:31 Height 5 ft 1 in Weight 146 lb BMI 27.6 BP 140/82 H Blood Pressure Location Lt brachial Position Sitting Respiration 16 Pulse 108 H Pulse Source Pulse Oximeter Pulse Oximetry (%) 94 Oxygen Delivery Method Room Air Intake Visit Reasons: MRI FOLLOW UP Surveillance Supervisor Required: No Accompanied by: Child Allergies No Known Allergies (No Known Allergies*) Allergy (Verified 03/05/25 09:33) Medication List - Last Reconciled 03/05/25 by Alicia Castillo LPN acetaminophen 1,000 mg (2 x 500 mg) PO Q6H PRN alendronate 70 mg PO QWEEK benazepril 10 mg PO DAILY 90 days cholecalciferol (vitamin D3) 25 mcg PO DAILY ibuprofen 400 mg PO BID HPI HPI MRI FOLLOW UP: Details: History of Present Illness The patient is a 74-year-old female presenting with a follow-up on her thoracic spine MRI revealing new osteoporotic compression fractures. She has a history of osteoporosis, which has resulted in multiple vertebral compression fractures over time. Recent MRI findings indicated two new fractures, with L3 being a new fracture and L2 worsening from a previous state. The patient reports significant back pain and swelling, affecting her ability to walk and maintain posture. Imaging studies confirm vertebral collapse at multiple levels, including T12 and L1, which are considered too old to repair. The patient is currently on Fosamax for osteoporosis management, prescribed by her primary care physician. She is not currently under the care of an police or patrol park officer for her osteoporosis management. The patient experiences anxiety related to medical procedures, particularly concerning the kyphoplasty procedure due to previous experiences of being awake during the procedure and discomfort with the anesthesia process. Despite these concerns, after discussion, she agreed to proceed with kyphoplasty for L2 and L3 to prevent further collapse. Pain Description - Onset: Chronic back pain due to vertebral compression fractures - Quality: Described as a sensation of bones collapsing - Location: Lower back - Exacerbating factors: Walking and maintaining posture - Relieving factors: None mentioned - Interference: Affects ability to walk and maintain posture Physical Exam - Appears afebrile. - Alert and oriented. - Mood and affect appropriate. - Follows and participates in conversation appropriately. - Respiratory effort is unlabored. - TTP over lumbar spine c/w L2 & L3 source Results - Imaging: MRI showing new fractures at L3 and worsening of L2, with T12 and L1 being too old to repair Pain Management - Affect: Patient experiences anxiety related to medical procedures - Analgesia: No specific pain medications mentioned, but patient reports significant back pain - Adverse Effects: None mentioned - Activities of Daily Living: Pain affects ability to walk and maintain posture - Aberrant Drug Related Behaviors: None mentioned PFSH Medical History Osteoporosis Essential hypertension Tobacco use disorder Low back pain Stress incontinence of urine Hx of vertigo History of CVA (cerebrovascular accident) Wears dentures Smoker Surgical History History of bunionectomy of both great toes Hx of colonoscopy (~10/29/21) Family History Mother No problems noted. Father No problems noted. Social History Household Members: None Housing: Apartment Are you a primary certified caregiver to a significant other at home: No Do you presently have visiting nurse or other home services: No Alcohol intake: former Patient Tobacco Use Status: Current everyday Tobacco user Tobacco use type: Cigarette Cigarettes Per Day: 12 e-Cigarette/Vaping Use: Currently Using service: No Current occupational status: retired Cognitive needs: No Hearing needs: Yes (bilateral hearing aids) Vision needs: Yes (reading glasses) Physical Exam Vital Signs: Last Vital Signs Pulse 108 H 03/05/25 09:31 Resp 16 03/05/25 09:31 BP 140/82 H 03/05/25 09:31 Pulse Ox 94 03/05/25 09:31 Oxygen Delivery Method Room Air 03/05/25 09:31 BMI result Body Mass Index 27.6 Assessment & Plan Assessment & Plan (1) Osteoporosis: Comment: - Discussed continuation with alendronate and importance of adherence. - Scheduled follow-up bone scan ordered to assess bone health status. Code(s): M81.0 - Age-related osteoporosis without current pathological fracture Category: Medical Qualifiers: Osteoporosis type: age-related Presence of current pathological fracture: with current pathological fracture Encounter type: subsequent encounter Fracture healing: with routine healing Qualified Code(s): M80.00XD - Age-related osteoporosis with current pathological fracture, unspecified site, subsequent encounter for fracture with routine healing (2) Compression fracture of vertebrae: Code(s): M48.50XA - Collapsed vertebra, not elsewhere classified, site unspecified, initial encounter for fracture Category: Medical Qualifiers: Encounter type: initial encounter Fracture of vertebra location: thoracic Thoracic vertebra fracture level: T12 Qualified Code(s): S22.080A - Wedge compression fracture of T11-T12 vertebra, initial encounter for closed fracture Plan Plan Patient was informed and verbally consented to the use of an ambient scribe for clinic note documentation during this visit. 1. Osteoporotic Compression Fractures - Plan to proceed with kyphoplasty for L2 and L3 to prevent further collapse. - Discussed the procedure, including the use of cement to stabilize the fractures. - Patient expressed anxiety about the procedure due to previous experiences. - Agreed to proceed after discussing potential benefits and addressing anxiety concerns. 2. Osteoporosis - Currently managed with Fosamax, prescribed by primary care physician. - Consideration for endocrinology referral to explore additional treatment options. 3. Anxiety Related To Medical Procedures - Discussed anxiety management strategies for upcoming kyphoplasty. - Plan to provide additional oral medication to alleviate anxiety during the procedure. Discussion Notes I discussed with the patient the findings of her recent MRI, which showed new fractures at L3 and worsening of L2. We talked about the option of kyphoplasty to stabilize these fractures and prevent further collapse. The patient expressed anxiety about the procedure due to previous experiences of being awake during the surgery. I explained the benefits of the procedure, including the use of cement to stabilize the fractures, and addressed her concerns by discussing potential anxiety management strategies. After much discussion, the patient agreed to proceed with the kyphoplasty for L2 and L3. We will request authorization and proceed with scheduling the procedure. Patient Instructions - Follow up with the primary care physician for ongoing osteoporosis management. - Consider scheduling an appointment with an police or patrol park officer to explore additional treatment options for osteoporosis. - Prepare for the upcoming kyphoplasty procedure by discussing any concerns with the medical team. - Follow instructions provided for the use of the back brace once received. Medications: New back brace Thoracolumbar brace 1 ea 0RF Coding Level of Care Code Est Pt Level 4 (07312) Diagnoses Age-related osteoporosis with current pathological fracture with routine healing, subsequent encounter M80.00XD Osteoporosis type: age-related Presence of current pathological fracture: with current pathological fracture Encounter type: subsequent encounter Fracture healing: with routine healing Compression fracture of T12 vertebra, initial encounter S22.080A Encounter type: initial encounter Fracture of vertebra location: thoracic Thoracic vertebra fracture level: T12
[2025-03-05 09:31] VITALS: BP 140/82; PULSE 108; RESP 16; O2SAT 94; BMI 27.6
== END 2025-03-05 10:14 | disposition home or self-care (01) ==
LOC: HO.PMC 09:22
PROVIDERS: PCP Student in an Organized Health Care Education/Training Program; Visit Provider Internal Medicine
DX: M80.00XD Age-related osteoporosis with current pathological fracture, unspecified site, subsequent encounter for fracture with routine healing (principal); S22.080A Wedge compression fracture of T11-T12 vertebra, initial encounter for closed fracture
CPT/HCPCS: 99214

== ENCOUNTER → 2025-03-05 09:21 | Outpatient (BNVA) | payer MEDICARE, MEDICAID, SELFPAY | PROVIDERS: Visit Provider Internal Medicine | DX: M80.00XD Age-related osteoporosis with current pathological fracture, unspecified site, subsequent encounter for fracture with routine healing (principal); S22.080D Wedge compression fracture of T11-T12 vertebra, subsequent encounter for fracture with routine healing | CPT/HCPCS: 99212 ==

== ENCOUNTER 2025-04-04 14:33 | Outpatient (REF) | payer MEDICARE, MEDICAID, SELFPAY ==
--- NOTE | ~2025-04-04 | MM_ITS ---
EXAMINATION: DXA BONE DENSITY AXIAL HISTORY: M54.41 - Lumbago with sciatica, right side TECHNIQUE: Beestar Dual energy absorptiometry (DEXA) of the lumbar spine, total left hip, and femoral neck was performed. COMPARISON: Comparison is made with the prior examination dated 06/22/2021. FINDINGS: The bone mineral density of the lumbar spine is 0.784 g/cm2, corresponding to a T-score of -3.2, and a Z-score of -1.6. This is indicative of osteoporosis. This represents a BMD change of -2.1% compared to the prior exam. This is not statistically significant. The bone mineral density of the left total hip is 0.654 g/cm2, corresponding to a T-score of -2.8, and a Z-score of -1.1. This is indicative of osteoporosis. This represents a BMD change of -9.8% compared to the prior exam. This is statistically significant. The bone mineral density of the left femoral neck is 0.603 g/cm2, corresponding to a T-score of -3.1, and a Z-score of -1.3. This is indicative of osteoporosis. This represents a BMD change of 2.4% compared to the prior exam. FRACTURE RISK: The FRAX index suggests a ten year probability of major osteoporotic fracture of 55.1%, and of hip fracture 48.3%. MM/XR DEXA axial skeleton IMPRESSION: Based on bone mineral density, and according to World Health Organization (WHO) criteria, the diagnosis is consistent with osteoporosis. Statistically, 68% of repeat scans fall within 1 SD (+/- 0.010 g/cm2 for AP spine L1-L4) and 1 SD (+/- 0.012 g/cm2 for femur total) FRAX is a trademark of the [employer] [facility] [employer], a World Health Organization (WHO) Collaborating Center. Electronically signed by: Mark Anthony García MD 04/04/2025 03:22 PM [facility]
== END 2025-04-04 14:34 | disposition home or self-care (01) ==
LOC: HO.MAMMO 14:33
PROVIDERS: PCP Nurse Practitioner Family; Visit Provider Student in an Organized Health Care Education/Training Program
DX: M54.41 Lumbago with sciatica, right side (principal); M81.0 Age-related osteoporosis without current pathological fracture
CPT/HCPCS: 77080

== ENCOUNTER → 2025-04-04 15:00 | Outpatient (BNV) | payer MEDICARE, MEDICAID, SELFPAY | PROVIDERS: PCP Nurse Practitioner Family; Visit Provider Radiology Diagnostic Radiology | DX: E28.39 Other primary ovarian failure (principal) | CPT/HCPCS: 77080 ==